=== PATIENT | female | born 1975 ===

== ENCOUNTER 2021-02-19 15:14 | Outpatient (REF) | payer MEDICAID, SELFPAY ==
[2021-02-19 16:48] LABS: Estimated Average Glucose 97 mg/dL; INTERNATIONAL NORM RATIO 1.1 (0.9-1.1); Prothrombin Time 12.5 SEC (10.8-13.0)
[2021-02-19 16:50] LABS: Partial Thromboplastin Time 40.6 SEC (24.1-38.0)
[2021-02-19 16:56] LABS: Basophils Percent Auto 0.4 % (0-2); Eosinophils Percent Auto 0.8 % (0-4); Hematocrit 45.2 % (37-47); Hemoglobin 14.8 g/dl (12.0-16.0); Imm Gran Abs Auto 0.02 X10*3/uL (0.00-0.03); Imm Gran Pct Auto 0.4 % (0.0-0.4); Lymphocytes Absolute Auto 1.8 X10*3/uL (1.2-4.9); Lymphocytes Percent Auto 36.7 % (20-40); MANUAL DIFF FLAG SCAN; Mean Corpuscular HGB Conc 32.7 g/dl (31.0-35.0); Mean Corpuscular Hemoglobin 26.9 pg (27.0-33.0); Mean Corpuscular Volume 82.2 fL (80-98); Mean Platelet Volume 12.1 fL (9.4-12.3); Monocytes Absolute Auto 0.3 X10*3/uL (0.1-1.2); Monocytes Percent Auto 5.7 % (2-11); Neutrophils Absolute Auto 2.7 X10*3/uL (2.0-8.3); PLT CLUMP 1; Red Cell Distribution Width 15.3 % (11.0-16.0); SCAN SMEAR FLAG 1
[2021-02-19 17:14] LABS: Alanine Aminotransferase 17 U/L (0-31); Albumin Level 4.3 g/dL (3.5-5.0); Alkaline Phosphatase 80 U/L (39-117); Anion Gap 12 (12-20); Aspartate Amino Transferase 17 U/L (5-31); Bilirubin Direct < 0.2 mg/dL (0.0-0.5); Bilirubin Total 0.3 mg/dL (0.0-1.0); Blood Urea Nitrogen 9 mg/dL (9-16); Calcium 9.5 mg/dL (8.4-10.2); Carbon Dioxide 29 mmol/L (22-29); Chloride 103 mmol/L (96-108); Cholesterol 223 mg/dL; Estimated Glomerular Filt Rate > 60; Glucose Random 69 mg/dL (60-115); HDL Cholesterol 65 mg/dL; LDL Cholesterol Calculated 144 mg/dl; Potassium 4.3 mmol/L (3.3-5.1); Sodium 140 mmol/L (135-145); Total Protein 7.2 g/dL (6.5-8.0); Triglycerides 72 mg/dL
[2021-02-19 17:34] LABS: TSH reflex Free T4 0.73 uIU/mL (0.32-4.0)
[2021-02-19 18:06] LABS: Platelet Count 168 X10*3/uL (160-400); White Blood Count 4.9 X10*3/uL (4.8-10.8)
[2021-02-19 18:15] LABS: SLIDE REVIEW VERIFIED
== END 2021-02-19 15:15 | disposition home or self-care (01) ==
LOC: HO.LAB 15:14
PROVIDERS: PCP Internal Medicine; Visit Provider Internal Medicine
DX: Z00.00 Encounter for general adult medical examination without abnormal findings (principal); D68.2 Hereditary deficiency of other clotting factors
CPT/HCPCS: 36415; 80048; 80061; 80076; 82306; 83036; 84443; 85025; 85610; 85730

== ENCOUNTER 2021-04-23 14:08 | Outpatient (REF) | payer MEDICAID, SELFPAY ==
--- NOTE | ~2021-04-23 | US_ITS ---
EXAMINATION: US PELVIS, COMPLETE CLINICAL INFORMATION: Irregular menses; the last menstrual period was 2 months prior. COMPARISON: None TECHNIQUE: Transabdominal and transvaginal imaging was performed. FINDINGS: The uterus is of normal size and echogenicity measuring 8.7 x 4.0 x 4.7 cm. The uterus is anteverted and retroflexed. A regular homogeneous endometrium is identified measuring 0.5 cm. Both ovaries are of normal size and echogenicity. The right ovary measures 2.3 x 2.5 x 2.1 cm for a volume of 6.6 mL. The left ovary measures 3.8 x 3.1 x 3.1 cm for a volume of 19.1 mL. The left ovary contains 2.9 x 2.2 x 2.4 cm, 2.3 x 1.9 x 2.5 cm and 2.4 x 1.5 x 1.7 cm anechoic cysts. The first and last of these appear simple, and the 2.5 cm maximal diameter cyst shows a possible 6 mm intramural nodule. There is no pelvic free fluid. No adnexal mass is seen. US/US transvaginal IMPRESSION: Multiple left ovarian cysts are seen, 2 simple and 1 showing a possible intramural nodule. This could be more fully evaluated with dedicated pelvic MRI, if clinically indicated. Recommend Gynecology evaluation and management. At a minimum, ultrasound follow-up is recommended at a 6 week interval to ensure stability/regression.
--- NOTE | ~2021-04-23 | US_ITS ---
EXAMINATION: US PELVIS, COMPLETE CLINICAL INFORMATION: Irregular menses; the last menstrual period was 2 months prior. COMPARISON: None TECHNIQUE: Transabdominal and transvaginal imaging was performed. FINDINGS: The uterus is of normal size and echogenicity measuring 8.7 x 4.0 x 4.7 cm. The uterus is anteverted and retroflexed. A regular homogeneous endometrium is identified measuring 0.5 cm. Both ovaries are of normal size and echogenicity. The right ovary measures 2.3 x 2.5 x 2.1 cm for a volume of 6.6 mL. The left ovary measures 3.8 x 3.1 x 3.1 cm for a volume of 19.1 mL. The left ovary contains 2.9 x 2.2 x 2.4 cm, 2.3 x 1.9 x 2.5 cm and 2.4 x 1.5 x 1.7 cm anechoic cysts. The first and last of these appear simple, and the 2.5 cm maximal diameter cyst shows a possible 6 mm intramural nodule. There is no pelvic free fluid. No adnexal mass is seen. US/US pelvic complete IMPRESSION: Multiple left ovarian cysts are seen, 2 simple and 1 showing a possible intramural nodule. This could be more fully evaluated with dedicated pelvic MRI, if clinically indicated. Recommend Gynecology evaluation and management. At a minimum, ultrasound follow-up is recommended at a 6 week interval to ensure stability/regression.
== END 2021-04-23 14:09 | disposition home or self-care (01) ==
LOC: HO.US 14:08
PROVIDERS: PCP Internal Medicine; Visit Provider Internal Medicine
DX: N92.6 Irregular menstruation, unspecified (principal)
CPT/HCPCS: 76830; 76856

== ENCOUNTER 2021-05-06 08:31 | Outpatient (REF) | payer MEDICAID, SELFPAY ==
[2021-05-07 01:02] LABS: CT PCR NOT DETECTED (Not Detect.); NG PCR NOT DETECTED (Not Detect.)
[2021-05-08 06:26] LABS: CA-125 17 U/mL (<35)
[2021-05-08 13:30] LABS: HPV mRNA E6/E7 rflx Not Detected (Not Detected)
[2021-05-09 08:51] LABS: Follicle Stimulating Hormone 13.5 mIU/mL
== END 2021-05-06 08:32 | disposition home or self-care (01) ==
LOC: HO.LAB 08:31
PROVIDERS: PCP Internal Medicine; Visit Provider Advanced Practice Midwife
DX: Z12.4 Encounter for screening for malignant neoplasm of cervix (principal); Z11.51 Encounter for screening for human papillomavirus (HPV); Z11.3 Encounter for screening for infections with a predominantly sexual mode of transmission; R10.9 Unspecified abdominal pain; N92.6 Irregular menstruation, unspecified; N83.299 Other ovarian cyst, unspecified side; R23.2 Flushing; Z20.2 Contact with and (suspected) exposure to infections with a predominantly sexual mode of transmission
CPT/HCPCS: 36415; 81003; 83001; 84443; 86304; 87491; 87591; 87624; 88142

== ENCOUNTER 2021-06-04 13:35 | Outpatient (REF) | payer MEDICAID, SELFPAY ==
--- NOTE | ~2021-06-04 | US_ITS ---
EXAMINATION: US PELVIS CLINICAL INFORMATION: Ovarian cysts COMPARISON: 04/23/2021 TECHNIQUE: Ultrasound of the pelvis is performed using both transabdominal and transvaginal transducers along with Doppler. Transvaginal imaging is performed due to inadequate visualization transabdominally. FINDINGS: Uterus: The uterus is anteverted and measures 10.3 x 6.4 x 7.1 cm. The double wall endometrial thickness is 1.0 mm. The uterus is smooth in contour and has normal myometrial echogenicity. No visible fibroid. Adnexa: Both ovaries are visualized. There is normal color flow to the adnexa. There is no ovarian torsion. There is no pelvic ascites or fluid collection. Right ovary measures 2.5 x 1.9 x 1.7 cm for a volume of 4.2 mL. Left ovary measures 4.1 x 3.1 x 3.4 cm for a volume of 22.6 mL which includes a 3.4 x 2.9 x 3.3 cm cyst. A cyst with a complex hyperechoic area seen on the previous study is not seen on today's exam. US/US pelvic and transvaginal IMPRESSION: Previously seen concerning left ovarian cyst that showed a 6 mm intramural nodule has resolved.
== END 2021-06-04 13:36 | disposition home or self-care (01) ==
LOC: HO.US 13:35
PROVIDERS: Visit Provider Advanced Practice Midwife
DX: N83.299 Other ovarian cyst, unspecified side (principal)
CPT/HCPCS: 76830; 76856

== ENCOUNTER → 2021-06-11 11:20 | Outpatient (BNVA) | payer MEDICAID, SELFPAY | PROVIDERS: PCP Internal Medicine; Visit Provider Advanced Practice Midwife ==

== ENCOUNTER 2022-02-05 15:01 | Emergency (ER) | payer MEDICAID, SELFPAY ==
[2022-02-05 15:09] VITALS: BP 110/52; PULSE 68; RESP 18; TEMP 36.7; O2SAT 97; BMI 28.5
== END 2022-02-05 16:57 | disposition left against medical advice (07) ==
PROVIDERS: Emergency Provider Emergency Medicine; PCP Internal Medicine
DX: R10.9 Unspecified abdominal pain (principal); R19.7 Diarrhea, unspecified; R11.10 Vomiting, unspecified
CPT/HCPCS: 99281

== ENCOUNTER 2022-03-19 10:17 | Outpatient (REF) | payer MEDICAID, SELFPAY ==
[2022-03-21 14:06] LABS: H Pylori Breath Test Negative (Negative)
== END 2022-03-19 10:18 | disposition home or self-care (01) ==
LOC: CF 10:17
PROVIDERS: PCP Internal Medicine; Visit Provider Physician Assistant
DX: A04.8 Other specified bacterial intestinal infections (principal); R10.9 Unspecified abdominal pain; R14.0 Abdominal distension (gaseous)
CPT/HCPCS: 36415; 83013; 99202

== ENCOUNTER 2022-04-08 08:22 | Outpatient (REF) | payer MEDICAID, SELFPAY ==
--- NOTE | ~2022-04-08 | MM_ITS ---
EXAMINATION: MM SCREENING DIGITAL BREAST TOMOSYNTHESIS, BILATERAL CLINICAL INFORMATION: Screening. Asymptomatic. Age 46. No prior breast imaging. No known family history breast cancer. The lifetime risk of breast cancer based on the Tyrer-Cuzick Model is 9%. COMPARISON: None (current study represents initial baseline exam). TECHNIQUE: Digital breast tomosynthesis is performed in both the craniocaudal and mediolateral oblique views along with computer-aided detection (CAD). Synthesized 2D images are generated from the tomosynthesis. FINDINGS: There are scattered areas of fibroglandular density (ACR BI-RADS breast composition Category b). There is no significant mass or architectural abnormality. Minor parenchymal asymmetry present posterior upper outer left breast. The axilla and skin contours are unremarkable. Left breast has tightly grouped fine calcifications periareolar upper outer breast, possibly vascular. Right breast has fine punctate density lateral periareolar breast not as well visualized on MLO view, possibly digital processing digital processing pseudo calcification artifact. As this exam represents initial baseline study, patient will be recalled for additional magnification views to fully characterize the calcifications. MM/MM tomosynthesis screening BI IMPRESSION: Left: -Grouped upper outer periareolar calcifications, possibly vascular. Right: -Punctate lateral periareolar calcifications digital processing pseudocalcification artifact. ASSESSMENT: BI-RADS 0: Incomplete - Need Additional Imaging Evaluation RECOMMENDATION: 1. Additional bilateral magnification CC and bilateral magnification ML views. 2. Radiology department staff will contact the patient for additional imaging. This patient's information was entered into a reminder system with a target due date for their next mammogram.
== END 2022-04-08 08:23 | disposition home or self-care (01) ==
LOC: HO.MAMMO 08:22
PROVIDERS: PCP Internal Medicine; Visit Provider Internal Medicine
DX: Z12.31 Encounter for screening mammogram for malignant neoplasm of breast (principal)
CPT/HCPCS: 77063; 77067

== ENCOUNTER 2022-04-22 13:47 | Outpatient (REF) | payer MEDICAID, SELFPAY ==
--- NOTE | ~2022-04-22 | MM_ITS ---
EXAMINATION: MM DIAGNOSTIC DIGITAL MAMMOGRAPHY, BILATERAL CLINICAL INFORMATION: Recall from baseline for bilateral calcifications. Age 46. TC score 9%. COMPARISON: Mammography: 04/08/2022 (baseline). TECHNIQUE: Digital mammography left breast is performed in the following views: Magnification CC, magnification rolled medial CC, magnification ML. Digital mammography right breast is performed in the following views: Magnification CC, magnification ML x2. FINDINGS: There are scattered areas of fibroglandular density (ACR BI-RADS breast composition Category b). Magnification views left breast demonstrate a group of over 10 calcifications anterior upper outer quadrant which appear heterogeneous, varying in shape, most notable on the rolled CC view. There are grouped benign area of approximately 1 cm across. Stereotactic sampling is recommended. There are other fine uniform appearing punctate round isolated and some small grouped calcifications retroareolar and left upper outer quadrant. These are similar to calcifications found on the right and are probably benign. Magnification views right breast demonstrate scattered isolated and small groups of round calcifications central and lower breast, probably benign. There is no focal pleomorphic grouped or ductal distribution. Results are discussed with the patient and family at time of visit, hospital provided park interpreter for portion of discussion. Patient is in agreement with stereotactic sampling. Results and recommendation called to medical certification specialist (Melissa) for Dr. Mike Barroso on 04/22/2022. MM/MM added views BI IMPRESSION: Left: -Grouped heterogeneous calcifications anterior upper outer breast, recommend tissue sampling. -Other calcifications left breast are similar to contralateral right breast, probably benign. Right: -Calcifications central and lower breast, probably benign. ASSESSMENT: BI-RADS 4: Suspicious RECOMMENDATION: -Stereotactic sampling grouped heterogeneous calcifications anterior upper outer left breast. -Other bilateral breast calcifications may be reassessed again in 6 months. This patient's information was entered into a reminder system with a target due date for their next mammogram.
== END 2022-04-22 13:48 | disposition home or self-care (01) ==
LOC: HO.MAMMO 13:47
PROVIDERS: PCP Internal Medicine; Visit Provider Internal Medicine
DX: R92.1 Mammographic calcification found on diagnostic imaging of breast (principal)
CPT/HCPCS: 77066

== ENCOUNTER 2022-04-29 08:19 | Outpatient (REF) | payer MEDICAID, SELFPAY ==
--- NOTE | ~2022-04-29 | MM_ITS ---
EXAMINATION: STEREOTACTIC TOMOSYNTHESIS-GUIDED VACUUM-ASSISTED BREAST BIOPSY, LEFT SPECIMEN RADIOGRAPH, LEFT POST PROCEDURE DIGITAL MAMMOGRAM, LEFT CLINICAL INFORMATION: Indeterminate calcifications upper outer aspect of the left breast. COMPARISON: April 22, 2022 and April 08, 2022. TECHNIQUE/PROCEDURE: Informed consent was obtained from the patient after discussion of the benefits, risks, and alternatives to biopsy today. Patient appeared to understand. Gave opportunity for questions. Patient signed consent form. BIOPSY TABLE: [employer]one Biopsy System. LESION: Calcifications. LOCAL ANESTHESIA: 10 mL 1% lidocaine; 18 mL 1% lidocaine with epinephrine. DERMATOTOMY: Single skin shobha dermatotomy performed. NEEDLE: Trigence Eviva 9-gauge vacuum assisted core biopsy device. APPROACH: Lateral. TARGETING: Digital breast tomosynthesis used for targeting. CORES: 20. CLIP: Top hat. SPECIMEN RADIOGRAPH: Specimen radiograph is taken in separate room using digital mammography. The index calcifications are in the excised cores. POST PROCEDURE UNILATERAL DIGITAL MAMMOGRAM: The post biopsy mammogram is performed in separate room using separate digital mammography equipment from the biopsy procedure. 2 views are obtained. There are scattered areas of fibroglandular density (breast composition category: b). The clip marker is in position. The calcifications are markedly decreased at the biopsy site. No gross hematoma. The patient tolerated the procedure well. No immediate complications. Home instructions reviewed with the patient. Final pathology results are pending. MM/MM stereotactic biopsy LT IMPRESSION: 1. Digital tomosynthesis-guided core biopsy left breast with clip placement. 2. Specimen radiograph taken and post procedure mammogram. There is satisfactory positioning of the biopsy clip. 3. Final pathology results pending. An addendum report will be issued.
[2022-04-29] MEDS: Sodium Bicarbonate 8.4% 50 MEQ/50 ML VIAL SUBCUT (11:14)
[2022-04-29] MEDS: Lidocaine HCl 1 % 20 ML VIAL 9 ML SUBCUT (11:15)
== END 2022-04-29 08:20 | disposition home or self-care (01) ==
LOC: HO.MAMMO 08:19
PROVIDERS: Visit Provider Surgery
DX: R92.8 Other abnormal and inconclusive findings on diagnostic imaging of breast (principal); Z79.899 Other long term (current) drug therapy
CPT/HCPCS: 19081; 88305; 99202; A4648

== ENCOUNTER → 2022-05-02 08:26 | Outpatient (BNVA) | payer MEDICAID, SELFPAY | PROVIDERS: PCP Internal Medicine; Visit Provider Surgery | DX: R92.8 Other abnormal and inconclusive findings on diagnostic imaging of breast (principal); Z98.890 Other specified postprocedural states | CPT/HCPCS: 99211 ==

== ENCOUNTER 2022-08-12 10:13 | Outpatient (REF) | payer MEDICAID, SELFPAY ==
[2022-08-12 14:03] LABS: MANUAL DIFF FLAG NO
[2022-08-12 14:20] LABS: Basophils Percent Auto 0.6 % (0-2); Eosinophils Absolute Auto 0.1 X10*3/uL (0.0-0.4); Eosinophils Percent Auto 1.2 % (0-4); Hematocrit 42.5 % (37.0-47.0); Hemoglobin 13.4 g/dl (12.0-16.0); Imm Gran Abs Auto 0.02 X10*3/uL (0.00-0.03); Imm Gran Pct Auto 0.4 % (0.0-0.4); Mean Corpuscular HGB Conc 31.5 g/dl (31.0-35.0); Mean Corpuscular Volume 79.3 fL (80.0-98.0); Mean Platelet Volume 10.9 fL (9.4-12.3); Monocytes Absolute Auto 0.4 X10*3/uL (0.1-1.2); Monocytes Percent Auto 8.2 % (2-11); Neutrophils Absolute Auto 2.5 x10*3/uL (2.0-8.3); Neutrophils Percent Auto 49.6 % (45-73); Platelet Count 323 X10*3/uL (160-400); Red Blood Count 5.36 X10*6/uL (4.20-5.50); Red Cell Distribution Width 15.4 % (11.0-16.0)
== END 2022-08-12 10:14 | disposition home or self-care (01) ==
LOC: HO.WFDLDS 10:13
PROVIDERS: Visit Provider Physician Assistant
DX: K52.9 Noninfective gastroenteritis and colitis, unspecified (principal); R14.0 Abdominal distension (gaseous); D68.2 Hereditary deficiency of other clotting factors; R10.9 Unspecified abdominal pain; Z79.01 Long term (current) use of anticoagulants; Z79.899 Other long term (current) drug therapy
CPT/HCPCS: 36415; 85025; 99212

== ENCOUNTER 2022-09-17 10:17 | Outpatient (REF) | payer MEDICAID, SELFPAY ==
--- NOTE | ~2022-09-17 | XR_ITS ---
EXAMINATION: XR CHEST CLINICAL INFORMATION: Influenza like symptoms, recurrent cough COMPARISON: None TECHNIQUE: 2 views of the chest were obtained. FINDINGS: The lungs are clear and there is no airspace consolidation or groundglass opacity. No coarsening bronchiolar markings. No hyperinflation or effusion. Heart size normal. Vascularity normal. Hilar and mediastinal contours and bony structures are unremarkable. XR/XR chest 2V IMPRESSION: Unremarkable examination.
== END 2022-09-17 10:18 | disposition home or self-care (01) ==
LOC: HO.XRAY 10:17
PROVIDERS: Visit Provider Emergency Medicine
DX: Z13.89 Encounter for screening for other disorder (principal)
CPT/HCPCS: 71046

== ENCOUNTER 2022-09-25 16:50 | Outpatient (REF) | payer MEDICAID, SELFPAY ==
[2022-09-25 17:17] LABS: D Dimer High Sensitivity 158 NG/ML
== END 2022-09-25 16:51 | disposition home or self-care (01) ==
LOC: HO.LAB 16:50
PROVIDERS: Absent Provider Internal Medicine; PCP Internal Medicine; Visit Provider Emergency Medicine
DX: R07.9 Chest pain, unspecified (principal)
CPT/HCPCS: 36415; 85379

== ENCOUNTER 2022-10-23 10:03 | Outpatient (REF) | payer MEDICAID, SELFPAY ==
--- NOTE | ~2022-10-23 | MM_ITS ---
EXAMINATION: MM DIAGNOSTIC DIGITAL BREAST TOMOSYNTHESIS, BILATERAL CLINICAL INFORMATION: Probable benign bilateral calcifications noted on initial baseline mammography for short interval six-month follow-up. Benign left stereotactic biopsy for grouped anterior upper outer breast 04/29/2022 (benign breast tissue with fibrocystic changes). The lifetime risk of breast cancer based on the Tyrer-Cuzick Model is 9%. COMPARISON: Mammography: 04/29/2022, 04/22/2022, 04/08/2022 (baseline, BI-RADS 0). TECHNIQUE: Digital breast tomosynthesis is performed in both the craniocaudal and mediolateral oblique views along with computer-aided detection (CAD). Synthesized 2D images are generated from the tomosynthesis. Additional bilateral magnification views are obtained: Left CC, left ML x2, right CC, right ML x2. FINDINGS: There are scattered areas of fibroglandular density (ACR BI-RADS breast composition Category b). Parenchymal pattern is similar to prior exam. No significant mass or architectural abnormality. The axilla and skin contours are unremarkable. There is biopsy clip marker anterior upper outer left breast. Calcifications targeted on left are no longer clearly visualized consistent with the tissue sampling. The remaining bilateral breast calcifications for follow-up are stable from prior diagnostic exam and will be reassessed again at time of annual bilateral mammography, due in 6 months. Results are provided to the patient at time of visit by the technologist. MM/MM tomosynthesis diagnostic BI IMPRESSION: -No mammographic evidence of malignancy. -Probable benign bilateral calcifications similar to prior diagnostic exam. ASSESSMENT: BI-RADS 3: Probably Benign RECOMMENDATION: Bilateral diagnostic mammography at time of annual exam, due in 6 months. This patient's information was entered into a reminder system with a target due date for their next mammogram.
== END 2022-10-23 10:04 | disposition home or self-care (01) ==
LOC: HO.MAMMO 10:03
PROVIDERS: PCP Internal Medicine; Visit Provider Internal Medicine
DX: R92.1 Mammographic calcification found on diagnostic imaging of breast (principal)
CPT/HCPCS: 77062; 77066

== ENCOUNTER → 2022-12-15 12:52 | Outpatient (BNVA) | payer MEDICAID, SELFPAY | PROVIDERS: PCP Internal Medicine; Visit Provider Internal Medicine Rheumatology | DX: M79.641 Pain in right hand (principal); G90.511 Complex regional pain syndrome I of right upper limb; D68.52 Prothrombin gene mutation; I87.2 Venous insufficiency (chronic) (peripheral) | CPT/HCPCS: 99202 ==

== ENCOUNTER 2022-12-16 11:50 | Outpatient (REF) | payer MEDICAID, SELFPAY ==
--- NOTE | ~2022-12-16 | XR_ITS ---
EXAMINATION: XR HAND, RIGHT CLINICAL INFORMATION: Pain. COMPARISON: None available. TECHNIQUE: PA, lateral, and oblique views of the right hand. FINDINGS: The bones and soft tissues are normal. No fracture. Alignment is anatomic. Joint spaces are maintained. No erosions or soft tissue calcifications. XR/XR hand LT min 3V IMPRESSION: Normal right hand. EXAMINATION: XR HAND, LEFT CLINICAL INFORMATION: Pain. COMPARISON: None available. TECHNIQUE: PA, lateral, and oblique views of the left hand. FINDINGS: The bones and soft tissues are normal. No acute fracture. A tiny accessory ossification centers or chronic avulsion fragment is incidentally noted adjacent to the ulnar styloid. Alignment is anatomic. Joint spaces are maintained. No erosions or periarticular soft tissue calcifications. A minimal calcifications is noted in the posterior wrist soft tissues. IMPRESSION: Unremarkable left hand.
--- NOTE | ~2022-12-16 | XR_ITS ---
EXAMINATION: XR HAND, RIGHT CLINICAL INFORMATION: Pain. COMPARISON: None available. TECHNIQUE: PA, lateral, and oblique views of the right hand. FINDINGS: The bones and soft tissues are normal. No fracture. Alignment is anatomic. Joint spaces are maintained. No erosions or soft tissue calcifications. XR/XR hand RT 2V IMPRESSION: Normal right hand. EXAMINATION: XR HAND, LEFT CLINICAL INFORMATION: Pain. COMPARISON: None available. TECHNIQUE: PA, lateral, and oblique views of the left hand. FINDINGS: The bones and soft tissues are normal. No acute fracture. A tiny accessory ossification centers or chronic avulsion fragment is incidentally noted adjacent to the ulnar styloid. Alignment is anatomic. Joint spaces are maintained. No erosions or periarticular soft tissue calcifications. A minimal calcifications is noted in the posterior wrist soft tissues. IMPRESSION: Unremarkable left hand.
--- NOTE | ~2022-12-16 | XR_ITS ---
EXAMINATION: XR KNEE, RIGHT CLINICAL INFORMATION: Pain. COMPARISON: None available. TECHNIQUE: AP and lateral views of the right knee. FINDINGS: Bones and soft tissues are normal. No fracture or joint effusion. Alignment is anatomic. Joint spaces are well maintained. No abnormal soft tissue calcification. XR/XR knee RT 2V IMPRESSION: Normal right knee.
== END 2022-12-16 11:51 | disposition home or self-care (01) ==
LOC: HO.XRAY 11:50
PROVIDERS: PCP Internal Medicine; Visit Provider Internal Medicine Rheumatology
DX: M79.641 Pain in right hand (principal); M25.561 Pain in right knee; M79.642 Pain in left hand
CPT/HCPCS: 73120; 73130; 73560

== ENCOUNTER 2023-02-24 13:25 | Outpatient (REF) | payer MEDICAID, SELFPAY ==
--- NOTE | ~2023-02-24 | US_ITS ---
EXAMINATION: US PELVIS CLINICAL INFORMATION: Irregular menses. Pelvic pain. LMP 15 days ago. COMPARISON: 06/04/2021 TECHNIQUE: Ultrasound of the pelvis is performed using both transabdominal and transvaginal transducers along with Doppler. Transvaginal imaging is performed due to inadequate visualization transabdominally. FINDINGS: Uterus: The uterus is retroverted and measures 9.1 x 5.5 x 7.4 cm. Uterine echotexture is heterogeneous. Uterine fibroids at the fundus measure 1.5 x 1.4 x 1.7 cm and 1.3 x 1.3 x 1.5 cm. The double wall endometrial thickness is 7 mm. Adnexa: Right ovary measures 2.0 x 1.2 x 1.5 cm. Left ovary measures 2.7 x 2.0 x 1.9 cm. Complex cyst measures 1.5 x 1.6 x 1.5 cm. No internal color Doppler flow. Small free fluid in the pelvis. US/US pelvic and transvaginal IMPRESSION: Complex left ovarian cyst measuring 1.5 x 1.6 x 1.5 cm. Findings are overwhelmingly likely to represent a normal ovarian follicle. No follow-up imaging recommended.
== END 2023-02-24 13:26 | disposition home or self-care (01) ==
LOC: HO.US 13:25
PROVIDERS: PCP Internal Medicine; Visit Provider Internal Medicine
DX: N92.1 Excessive and frequent menstruation with irregular cycle (principal)
CPT/HCPCS: 76830; 76856

== ENCOUNTER 2023-03-17 13:37 | Outpatient (AMB) | payer MEDICAID, SELFPAY ==
--- NOTE | 2023-03-17 13:38 | MHC.OFFVIS ---
Intake Vital Signs 03/17/23 13:44 Height 5 ft 4 in Weight 176 lb 3 oz BMI 30.2 BP 108/73 Blood Pressure Location Rt brachial Position Sitting Pulse 71 Pulse Source Pulse Oximeter Pulse Oximetry (%) 99 Oxygen Delivery Method Room Air Intake Visit Reasons: Chronic pain in knees & left hand Allergies aspirin Allergy (Unknown, Verified 12/15/22 13:08) bleeding HPI Chronic pain in knees & left hand HPI Details Patient is a pleasant 47 years old female with complex medical history presents today with bilateral knee pain and left hand pain. Patient reports she she prays with kneeling 5 times per day and has been having progressively increased bilateral knee pain since 2011. Pain is also easily aggravated with walking, climbing, and worsens with any contact on the floor. She presents with localized global anterior knee pain, mostly in patella areas. Denies any recent injury, falls, or trauma. Uses cushioning pads with prayers. Denies previous physical therapy, injections or knee surgery. She has chronic swelling of left lower extremity status post a fairly extensive problem with DVT in 2008 following while in [place] she apparently had a pulmonary embolus. Reports chronic LLE pain with intermittent swelling, calf tenderness and pain in the left foot and calf region. Reports increased left leg pain after recurrence of a DVT in 2014. At that point, she was found to have a prothrombin gene mutation. She reports her father from similar problems and many of her relatives have significant similar medical illnesses. Patient is presently on Plavix and has had no further DVT or other clots since 2014. She has upcoming follow up with [facility] Vascular provider in 2 weeks for left leg chronic pain and swelling. 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 Patient reports she is seeing rheumatology for her hand and multiple joint pain. Her most concerning and troublesome pain is bilateral knee pain for which she is interested to undergo therapeutic injections. Reports she receives right foot/heel cortisone injections every 6 months by her operations support manager in [place] with good pain relief. Location Bilateral knees, left hand Duration Chronic pain for 5+ years Characteristics of symptom or complaint Swelling, tingling, sharp, shooting pain, aching, shock-like Aggravating or associated factors Bending, lifting, climbing, walking, kneeling Relieving factors Gabapentin, lidocaine patches, Tylenol Treatment No PT, uses walker with ambulation PFSH Medical History Chronic ulcer of leg Depression with anxiety Factor V deficiency Hx of migraine headaches Hypothyroid Orthostatic hypotension Ulcer of lower extremity Venous insufficiency Surgical History H/O skin graft History of left breast biopsy Family History Maternal Aunt Stomach cancer Social History Household Members Other:: lives with 2 daughters Alcohol intake: never Patient Tobacco Use Status: Never used Tobacco Female Reproductive History Menstrual Age of Menarche: 12 Review of Systems Const All systems reviewed & are unremarkable except as noted in HPI and below Reports as per HPI, Denies body aches, Denies chills, Reports fatigue, Denies fever(s), Denies frequent falls, Reports weakness (reports gait problems, chronic LLE pain and swelling) and Denies weight loss Card Denies chest pain, Denies chest pain with activity, Denies syncope, Reports pedal edema, Reports leg edema, Denies dyspnea and Denies dyspnea on exertion Resp Denies pain on inspiration, Denies dyspnea and Denies dyspnea on exertion Musc Reports as per HPI, Denies myalgias, Reports arthralgias, Denies joint swelling, Reports numbness, Denies radiating pain into limb, Reports stiffness and Reports tingling Neuro Denies syncope, Denies frequent falls, Reports numbness, Reports tingling and Reports weakness (reports gait problems, chronic LLE pain and swelling) Endo Reports fatigue Physical Exam Vital Signs: Last Vital Signs Pulse 71 03/17/23 13:44 BP 108/73 03/17/23 13:44 Pulse Ox 99 03/17/23 13:44 Oxygen Delivery Method Room Air 03/17/23 13:44 BMI result Body Mass Index 30.2 General: Appears afebrile. Alert and oriented. Mood and affect appropriate. Follows and participates in conversation appropriately. Respiratory effort is unlabored. No cough. Able to transition from sit to stand unassisted. Uses walker with ambulation. Ambulates with bilaterally normal heel strike and toe off. Extrem Left upper extremity: hand (as per HPI) Right lower extremity: knee Details: tenderness Location: of the patella and of the medial joint line, normal ROM and crepitus; no swelling, no ecchymosis, no deformity and no unusual warmth Left lower extremity: knee (Increased pain with ROM. ) Details: tenderness Location: of the patella and of the medial joint line and crepitus; no swelling, no ecchymosis and no unusual warmth Results Reviewed Results Reviewed: XR KNEE, RIGHT 12/16/22 FINDINGS: Bones and soft tissues are normal. No fracture or joint effusion. Alignment is anatomic. Joint spaces are well maintained. No abnormal soft tissue calcification. IMPRESSION: Normal right knee. Assessment & Plan Assessment & Plan (1) Venous insufficiency: Code(s): I87.2 - Venous insufficiency (chronic) (peripheral) (2) Bilateral knee pain: Code(s): M25.561 - Pain in right knee; M25.562 - Pain in left knee (3) Polyarthralgia: Code(s): M25.50 - Pain in unspecified joint Plan Patient with chronic bilateral knee pain which she attributes to [employer] practices of frequent praying with kneeling and has no pain relief with conservative measures. Patient has significant history of DVT in her LLE in 2008 and 2014 which left her with chronic pain, swelling and was found to be in hypercoagulable state. She is currently on Plavix and denies any DVTs since 2014. She is followed by [facility] Rheumatology, Podiatry in [place], and [facility] Vascular services. Left hand pain is consistent with CRPS following injury with IV infiltration in 2008 during her hospital stay for in [place]. She is not interested to address this pain today. Patient requests bilateral knee therapeutic cortisone injections for her chronic knee pain. Will schedule her in office with Dr. Ferraro on 03/30/23. Patient is on Plavix, will obtain prescribing physician permission to pause it for knee injections. All questions and concerns have been answered and patient agreed with the plan. Follow up as needed. Coding Level of Care Code New Pt Level 4 (36936) Diagnoses Venous insufficiency I87.2 Bilateral knee pain M25.561; M25.562 Polyarthralgia M25.50
[2023-03-17 13:44] VITALS: BP 108/73; PULSE 71; O2SAT 99; BMI 30.2
== END 2023-03-17 14:16 | disposition home or self-care (01) ==
PROVIDERS: PCP Internal Medicine; Visit Provider Nurse Practitioner Family
DX: I87.2 Venous insufficiency (chronic) (peripheral) (principal); M25.561 Pain in right knee; M25.562 Pain in left knee; M25.50 Pain in unspecified joint
CPT/HCPCS: 99204

== ENCOUNTER → 2023-03-17 13:37 | Outpatient (BNVA) | payer MEDICAID, SELFPAY | PROVIDERS: PCP Internal Medicine; Visit Provider Nurse Practitioner Family | DX: M25.561 Pain in right knee (principal); M25.562 Pain in left knee; M79.642 Pain in left hand; I87.2 Venous insufficiency (chronic) (peripheral); Z86.718 Personal history of other venous thrombosis and embolism | CPT/HCPCS: 99204 ==

== ENCOUNTER 2023-04-03 08:06 | Outpatient (AMB) | payer MEDICAID, SELFPAY ==
--- NOTE | 2023-04-03 08:15 | A.OFFVIS_ITS ---
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 Scribed for DOM Pereira by Cayla Christopher rn medical surgical, on 04/03/2023 at 8:30 am EST Director Executive Communications Required: Yes Director Executive Communications Language: Yakut Director Executive Communications Name: Estephania [id number] Information Interpreted: non-clinical & clinical [employer]: [employer] Present (Rosa Mcdaniel GABY) Accompanied by: Self / Same As Patient Allergies aspirin Allergy (Unknown, Verified 04/03/23 08:22) bleeding Is last menstrual period known: Yes Last menstrual period: 03/24/23 HPI HPI Comments History of Present Illness Details She is a premenopausal woman presenting for annual exam. She attempts to eat healthy, uses a walker to ambulate. Not currently sexually active. Reports heavy/prolonged bleeding for months, will stop for 1-2 days and start again. Had recent bloodwork with PCP, abnormal TSH per patient. Records not avai lable. Has tried IUD in 2018, reports not liking it due to side effects, bloating/weight gain, not interested in trying again. Hx of Factor V deficiency. Denies vaginal itching and irritation. Family hx of colon cancer in mother. She is awaiting colonoscopy. Last pap smear 2020. Last mammogram 11/02/22. 02/24/23 US FINDINGS: Uterus: The uterus is retroverted and measures 9.1 x 5.5 x 7.4 cm.? Uterine echotexture is heterogeneous. Uterine fibroids at the fundus measure 1.5 x 1.4 x 1.7 cm and 1.3 x 1.3 x 1.5 cm. The double wall endometrial thickness is 7 mm.? Adnexa: Right ovary measures 2.0 x 1.2 x 1.5 cm. Left ovary measures 2.7 x 2.0 x 1.9 cm. Complex cyst measures 1.5 x 1.6 x 1.5 cm. No internal color Doppler flow. Small free fluid in the pelvis. IMPRESSION: Complex left ovarian cyst measuring 1.5 x 1.6 x 1.5 cm. ? Findings are overwhelmingly likely to represent a normal ovarian follicle. No follow-up imaging recommended. [facility] Medical History Chronic ulcer of leg Complex ovarian cyst Depression with anxiety Factor V deficiency Hx of migraine headaches Hypothyroid Orthostatic hypotension Ulcer of lower extremity Venous insufficiency Surgical History H/O skin graft History of left breast biopsy Family History Maternal Aunt Stomach cancer Mother Colon cancer Father Factor V deficiency Social History Household Members Other:: lives with 2 daughters Alcohol intake: never Patient Tobacco Use Status: Never used Tobacco Female Reproductive History Menstrual Age of Menarche: 12 Duration of menses: other (AUB) Date of last menstrual period: 03/24/23 control method: abstinence Total pregnancies: 3 Full term: 3 Number of Living Children: 3 Multiple births: 1 Date of last pap smear: 05/07/21 Date of Mammogram: 10/23/22 Review of Systems Const All systems reviewed & are unremarkable except as noted in HPI and below Reports abnormal vaginal bleeding and Reports menorrhagia Physical Exam Vital Signs: BMI result Body Mass Index 29.9 Const General: cooperative, healthy appearing, no acute distress, well developed and alert Orientation/consciousness: patient oriented x3 HEENT Head: Yes normal to inspection Eyes General: appearance normal, both eyes and all related structures Neck Neck: Yes normal visual inspection Thyroid: Thyroid normal Chest Chest palpation & inspection: normal inspection of the chest Breast/axilla inspection: normal inspection of the breasts (no puckering, dimpling, peau de orange, retraction, discharge, masses) Breast/axilla palpation: normal palpation of the breasts Resp Effort & Inspection: normal respiratory effort GI Inspection: Yes normal to inspection Palpation (GI): Soft to palpation Rectal Exam - Female: deferred General: Yes bladder normal to palpation External Female Exam: normal external appearance and normal appearance of the urethra Speculum Exam - Vagina: normal appearance of the vagina, normal palpation and normal vaginal discharge Speculum Exam - Cervix: normal appearance of the cervix and normal palpation Bimanual exam- vagina & uterus: normal bimanual exam, normal palpation, uterine size normal, bladder normal to palpation and normal palpation Bimanual Exam- Adnexa, other: normal adnexae and no masses Skin General skin exam: no rashes or lesions noted Neuro General: patient oriented x3 Cognition (Neuro): normal cognition Extrem General: Yes normal to inspection Left lower extremity: edema (compression stocking noted today) Psych Attitude: cooperative Thought process: Normal thought process present Assessment & Plan Assessment & Plan (1) Encounter for well woman exam: Code(s): Z01.419 - Encounter for gynecological examination (general) (routine) without abnormal findings Plan: Discussed: Current recommendations for pap smears per ASCCP guidelines. Breast awareness and periodic self breast exams. Encouraged yearly mammograms. Maintaining a healthy lifestyle including a well balanced diet and routine exercise. All of her questions and concerns were addressed to the best of my ability. RTO in one year for AG. (2) Complex ovarian cyst: Code(s): N83.299 - Other ovarian cyst, unspecified side Plan: Reviewed US results ordered by PCP. Discussed complex ovarian cyst and reassured patient that these are mostly benign and should resolve on their own but some can be premalignant requiring further surveillance and workup Repeat US. Ordered given to be done early April. RTO for test results and EMBx. (3) Abnormal uterine bleeding (AUB): Code(s): N93.9 - Abnormal uterine and vaginal bleeding, unspecified Plan: Discussed typical work up including pelvic US, labs and EMBx. The EMBx purpose was explained to rule out atypia, hyperplasia and uterine cancer. Reviewed procedure and instructed to take ibuprofen with food 1 hour prior to procedure. Counseled on heavy/prolonged bleeding and anemia. Records request for recent labs done by PCP. Recommended referral to [facility] Script Writer if needed for any further recommendations and evaluation given her hx of Factor V deficiency and the patient requesting a female provider. Will have further discussion regarding referral at next visit pending test results. All of her questions and concerns were addressed to the best of my ability and shared decision making: for EMBx. She is agreeable to plan of care. Orders: Orders US pelvic and transvaginal 04/13/23 N83.299 - Other ovarian cyst, unspecified side Coding Level of Care Code Est Pt Prev Care 40-64y(10553) Diagnoses Encounter for well woman exam Z01.419 Complex ovarian cyst N83.299 Abnormal uterine bleeding (AUB) N93.9
[2023-04-03 08:19] VITALS: BMI 29.9
== END 2023-04-03 09:22 | disposition home or self-care (01) ==
LOC: HO.HWS 08:06
PROVIDERS: PCP Internal Medicine; Visit Provider Advanced Practice Midwife
DX: Z01.419 Encounter for gynecological examination (general) (routine) without abnormal findings (principal); N83.299 Other ovarian cyst, unspecified side; N93.9 Abnormal uterine and vaginal bleeding, unspecified
CPT/HCPCS: 99396

== ENCOUNTER 2023-04-06 08:14 | Outpatient (AMB) | payer MEDICAID, SELFPAY ==
--- NOTE | 2023-04-06 08:34 | MHC.OFFVIS ---
Intake Vital Signs 04/06/23 08:44 Height 5 ft 4 in Weight 175 lb 2 oz BMI 30.1 BP 132/81 Blood Pressure Location Rt brachial Position Sitting Pulse 59 Pulse Source Pulse Oximeter Pulse Oximetry (%) 99 Oxygen Delivery Method Room Air Intake Visit Reasons: Bilat knee inj. 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 w/cortisone per Mars Steele HPI Details 47-year-old female presenting today for a bilateral knee injection with cortisone. The patient was referred by Akanksha Steele MELLOWING MACHINE OPERATOR for bilateral knee therapeutic cortisone injections. She has chronic swelling of the left lower extremity after a DVT in 2008 following a . She had a recurrence of DVT in 2014. She states that she has been receiving cortisone injections 2-3 times every six months for foot, and heel pain thought to be secondary to plantar fasciitis. She reports difficulty standing after waking up in the morning due to dizziness and instability on her feet. She states that she prays while kneeling five times per day. When she kneels with her knees on the floor, she feels an electric paresthesia in her patellar region that does not radiate down. She is currently using a cane due to leg pain and recurrent episodes of dizziness. She denies knee pain at any other time other than when she is kneeling on the knees. She also endorses occasional low back pain associated with some radiating pain in her thighs. History is notable for 3 pregnancies with 2 SVDs and a . She also has a history of venous reflux. The left hand has discoloration and swelling of the 3rd through 5th fingers that occurred, according to her, after an IV infiltrated in 2008. She denies any significant pain; however, she has occasional numbness in her hand. [facility] Medical History Chronic ulcer of leg Complex ovarian cyst Depression with anxiety Factor V deficiency Hx of migraine headaches Hypothyroid Orthostatic hypotension Ulcer of lower extremity Venous insufficiency Surgical History H/O skin graft History of left breast biopsy Family History Maternal Aunt Stomach cancer Mother Colon cancer Father Factor V deficiency Social History Household Members Other:: lives with 2 daughters Alcohol intake: never Patient Tobacco Use Status: Never used Tobacco Female Reproductive History Menstrual Age of Menarche: 12 Review of Systems Const All systems reviewed & are unremarkable except as noted in HPI and below Physical Exam Vital Signs: Last Vital Signs Pulse 59 04/06/23 08:44 BP 132/81 04/06/23 08:44 Pulse Ox 99 04/06/23 08:44 Oxygen Delivery Method Room Air 04/06/23 08:44 BMI result Body Mass Index 30.1 General: Appears afebrile. Alert and oriented. Mood and affect appropriate. Follows and participates in conversation appropriately. Respiratory effort is unlabored. Able to transition from sit to stand unassisted. Ambulates with bilaterally normal heel strike and toe off. Right Knee: No swelling, tenderness or pain around the knee joint with superficial or deep palpation or manipulation of the patella. No pain with weight-bearing. Knee range of motion is intact. Results Reviewed Results Reviewed: 12/16/22: XR KNEE, RIGHT FINDINGS: Bones and soft tissues are normal. No fracture or joint effusion. Alignment is anatomic. Joint spaces are well maintained. No abnormal soft tissue calcification. IMPRESSION: Normal right knee. Assessment & Plan Assessment & Plan (1) Lumbar radiculitis: Code(s): M54.16 - Radiculopathy, lumbar region Plan I do not think she is suffering from knee osteoarthritis based on a reassuring physical exam as well as imaging and lack of pain with weight-bearing. Her complaint is abnormal paresthesia sensations when she kneels on the floor. I recommended that she use padded prayer mats to minimize pressure on the knees. Some of her radicular/paresthesia sensations may be coming from a lumbar radiculitis. A referral was provided to physical therapy for strengthening exercises of back muscles. The patient will receive a call to schedule an appointment. Scribed for Dr. Ferraro by Gabo Alberto, medical malpractice paralegal, on 04/06/2023. I, Dr. Ferraro, have personally reviewed and agree with the information entered by the scribe. Orders: Orders PT Evaluation and Treatment 04/06/23 M54.16 - Radiculopathy, lumbar region Coding Level of Care Code Est Pt Level 3 (43059) Diagnoses Lumbar radiculitis M54.16
[2023-04-06 08:44] VITALS: BP 132/81; PULSE 59; O2SAT 99; BMI 30.1
== END 2023-04-06 09:18 | disposition home or self-care (01) ==
PROVIDERS: PCP Internal Medicine; Visit Provider Internal Medicine
DX: M54.16 Radiculopathy, lumbar region (principal)
CPT/HCPCS: 99213

== ENCOUNTER → 2023-04-06 08:14 | Outpatient (BNVA) | payer MEDICAID, SELFPAY | PROVIDERS: PCP Internal Medicine; Visit Provider Internal Medicine | DX: M54.16 Radiculopathy, lumbar region (principal) | CPT/HCPCS: 99212 ==

== ENCOUNTER 2023-04-22 12:00 | Outpatient (REF) | payer MEDICAID, SELFPAY ==
[2023-04-22 14:06] LABS: TSH reflex Free T4 1.43 uIU/mL (0.32-4.0)
== END 2023-04-22 12:01 | disposition home or self-care (01) ==
LOC: HO.HHCL 12:00
PROVIDERS: Visit Provider Internal Medicine
DX: E03.9 Hypothyroidism, unspecified (principal)
CPT/HCPCS: 36415; 84443

== ENCOUNTER 2023-04-22 15:12 | Outpatient (REF) | payer MEDICAID, SELFPAY ==
--- NOTE | ~2023-04-22 | US_ITS ---
EXAMINATION: US PELVIS CLINICAL INFORMATION: Ovarian cyst. LMP unknown. COMPARISON: Pelvic ultrasound 02/24/2023. TECHNIQUE: Ultrasound of the pelvis is performed using both transabdominal and transvaginal transducers along with Doppler. Transvaginal imaging is performed due to inadequate visualization transabdominally. FINDINGS: The uterus is retroverted and retroflexed measuring 9 x 6.7 x 6 cm. There is a 1.6 x 1.4 x 1.4 cm right intramural lesion, previously measuring 1.5 x 1.4 x 1.7 cm. No additional uterine lesion. The endometrium measures 11 mm in thickness without discrete focal abnormality. The ovaries are normal in morphology with preserved flow at the moment of this examination. The right ovary measures 2.8 x 2.2 x 2.3 cm, 7.4 mL. The left ovary measures 3.6 x 2.5 x 2 cm, 10 mL. Simple appearing follicles in both ovaries, largest in the left side measuring 2.3 x 2.1 x 1.7 cm with no associated septations or mural nodules. Previously described complex cyst in the left ovary is resolved, likely related with a hemorrhagic cyst. No adnexal mass. No free fluid. US/US pelvic and transvaginal IMPRESSION: 1. Interval resolution of the previously described complex cyst in the left ovary, likely related with a hemorrhagic cyst. 2. There is a 1.6 cm intramural lesion in the right uterus, statistically favoring to represent a fibroid, unchanged. 3. No suspicious pelvic mass. 4. No free fluid.
== END 2023-04-22 15:13 | disposition home or self-care (01) ==
LOC: HO.US 15:12
PROVIDERS: PCP Internal Medicine; Visit Provider Advanced Practice Midwife
DX: N83.299 Other ovarian cyst, unspecified side (principal)
CPT/HCPCS: 76830; 76856

== ENCOUNTER 2023-04-30 09:53 | Outpatient (REF) | payer MEDICAID, SELFPAY ==
--- NOTE | ~2023-04-30 | MM_ITS ---
EXAMINATION: MM DIAGNOSTIC DIGITAL MAMMOGRAPHY, BILATERAL CLINICAL INFORMATION: 6 month follow-up for probably benign bilateral breasts calcifications. History of benign calcification stereotactic biopsy upper outer left breast, anterior one third with placement of top hat biopsy clip. Patient also due for bilateral screening exam. COMPARISON: Mammography: 10/23/2022, 04/29/2022, 04/22/2022, and 04/08/2022. TECHNIQUE: Digital mammography is performed in craniocaudal and mediolateral oblique views along with computer-aided detection (CAD). In addition, full-field 3-D bilateral digital ML views were performed, as well as 2-D spot magnification CC and ML views of both breasts. FINDINGS: The breasts are heterogeneously dense, which may obscure small masses (ACR BI-RADS breast composition Category c). There is redemonstration of scattered calcifications in both breasts, which are loosely grouped, fine, and predominantly punctate. A few appear to layer on the ML projections, especially in the inferior aspect of the right breast. There is a post benign stereotactic biopsy clip in the upper outer left breast anterior one third. There has been no aggressive change of these calcifications. These remain probably benign. Otherwise, There are no suspicious masses or areas of architectural distortion in either breast. Similar parenchymal asymmetry noted left breast upper outer quadrant, posterior one third. The parenchymal pattern is stable from prior exams. Results were provided to the patient at time of visit by the technologist. MM/MM diagnostic mammo BI IMPRESSION: 1. Stable benign appearing scattered loosely grouped fine calcifications bilateral breasts without aggressive change, remaining probably benign. Six-month interval follow-up recommended to include standard spot magnification views. 2. Otherwise, no findings suspicious for malignancy. ASSESSMENT: BI-RADS BI-RADS 3 - Probably benign finding(s) - 6 month follow-up suggested RECOMMENDATION: 6 Month F/U This patient's information was entered into a reminder system with a target due date for their next mammogram.
== END 2023-04-30 09:54 | disposition home or self-care (01) ==
LOC: HO.MAMMO 09:53
PROVIDERS: PCP Internal Medicine; Visit Provider Internal Medicine
DX: R92.1 Mammographic calcification found on diagnostic imaging of breast (principal)
CPT/HCPCS: 77062; 77066

== ENCOUNTER → 2023-04-30 11:00 | Outpatient (BNV) | payer MEDICAID, SELFPAY | PROVIDERS: PCP Internal Medicine; Visit Provider Radiology Diagnostic Radiology | DX: R92.1 Mammographic calcification found on diagnostic imaging of breast (principal) | CPT/HCPCS: 77062; 77066 ==

== ENCOUNTER 2023-05-05 12:54 | Outpatient (RCR) | payer MEDICAID, SELFPAY ==
--- NOTE | 2023-05-05 14:49 | MHC.PT.EP ---
[place] Office [place] Office [place] Office [address] Vicente Oquendo [address] [phone] F: [phone] F: [phone] F: [phone] F: [phone] Physical Therapy Plan of Care Date of Evaluation: Date of Surgery: Diagnosis: Lumbar radiculitis Assessment: Pt is a 47 y/o female with orthostatic hypotension and venous insufficiency who is referred to PT for reval and treat of lumbar radiculopathy who presents with low back pain with instability resulting in decreased tolerance or ability for prolonged sitting and standing, sleep, personal care, walking, and lifting secondary to decreased hip strength, pelvic asymmetry, increased tissue tension in low back and hips, and pain. Pt is motivated and is deemed an appropriate candidate to receive skinned PT services to address their physical impairments in order to improve their functional ability. Frequency and Duration: The patient will be seen 2x/wk x4wks Short Term Goals: Initiate HEP Pt baseline pain will improve to <5/10; initial: 6-7/10 Hand Frame Surgical Elastic Knitter Goals: [place] with HEP Improve Noe outcome measure score by at least 13 points; initial: 43/50 Pt will be able to tolerate standing for more than 10 minutes without pain; initial: pain prevents patient from standing more than 10 minutes. Pt will improve B hip abd strength by at least 1/2 MMT grade; initial: 4-/5. Treatment Plan: Modalities to reduce pain, spasms and effusion. Manual therapy to restore motion and function. Therapeutic exercise to improve strength and flexibility. Neuromuscular re-education for posture and balance. Therapeutic activities to return to functional activities of daily living. Electronically signed by: Carlos Alberto Mcelroy PT. Please sign and return to therapist. Thank you for your referral.
--- NOTE | 2023-06-03 08:53 | MHC.PT.DC ---
[facility] [place] Office [place] Office [place] Office [address] Vicente Oquendo [address] [facility] [phone] F: [phone] F: [phone] F: [phone] F: [phone] Physical Therapy Discharge Report Diagnosis: Lumbar radiculitis Date of Surgery: Date of Evaluation: 05/05/23 Date of Discharge: 06/03/23 Treatments to Date: 1 Cancellations to Date: 2 No Shows to Date: 2 Discharge Status: Visit Non-compliance Discharge Summary: PT is DC per attendance policy. Electronically signed by: Carlos Alberto Mcelroy PT Please sign and return to therapist. Thank you for your referral.
== END 2023-06-03 08:55 | disposition home or self-care (01) ==
LOC: HO.PTCHIC 12:54
PROVIDERS: PCP Internal Medicine; Visit Provider Internal Medicine
DX: M54.16 Radiculopathy, lumbar region (principal)
CPT/HCPCS: 97110; 97161

== ENCOUNTER 2023-05-29 08:35 | Outpatient (REF) | payer MEDICAID, SELFPAY | END 2023-05-29 08:36 | disposition home or self-care (01) | LOC: HO.XRAY 08:35 | PROVIDERS: PCP Internal Medicine; Visit Provider Nurse Practitioner Family | DX: M77.11 Lateral epicondylitis, right elbow (principal); M25.521 Pain in right elbow; Z86.718 Personal history of other venous thrombosis and embolism | CPT/HCPCS: 99212 ==

== ENCOUNTER 2023-05-29 08:35 | Outpatient (AMB) | payer MEDICAID, SELFPAY ==
--- NOTE | 2023-05-29 08:36 | A.OFFVIS_ITS ---
Intake Vital Signs 05/29/23 08:41 Height 5 ft 4 in Weight 175 lb 6 oz BMI 30.1 BP 118/71 Blood Pressure Location Lt brachial Position Sitting Pulse 59 Pulse Source Pulse Oximeter Pulse Oximetry (%) 99 Oxygen Delivery Method Room Air Intake Visit Reasons: (R) Arm Pain Intake Note: Pain today 8/10. Vice President Consulting Services Required: No Accompanied by: Self / Same As Patient Allergies aspirin Allergy (Unknown, Verified 05/29/23 08:40) bleeding HPI HPI Comments History of Present Illness Details Patient presents today with acute right elbow pain. She is right hand dominant. Reports sudden onset upon waking up in lateral aspect of right elbow. Pain elicited with wrist extension, arm supination, gripping, grasping, overhead reaches and fingers flexion, especially 2nd and 3rd. This is consistent with tennis elbow symptoms. Patient reports Tylenol, ice and heat therapy, over the counter cream applications do not alleviate her pain. Pain is constant and can intensify to 10/10 which causes her crying and stopping all right arm movement or prep her arm on a pillow. She is guarding her arm throughout today's exam and is very sensitive with mild palpation around lateral elbow. Patient cannot take NSAIDs due to Plavix intake. She denies any inciting events, trauma, injury or falls. Denies any fever, chills, malaise, numbness or tingling in her hand or wrist. Right elbow pain radiates into her right forearm. Presents with 4/5 right hand grasping and wrist flexion due to pain. PRIOR Dr. Ferraro 04/06/23: 47-year-old female presenting today for a bilateral knee injection with cortisone. The patient was referred by Akanksha Steele NP for bilateral knee therapeutic cortisone injections. She has chronic swelling of the left lower extremity after a DVT in 2008 following a . She had a recurrence of DVT in 2015. She states that she has been receiving cortisone injections 2-3 times every six months for foot, and heel pain thought to be secondary to plantar fasciitis. She reports difficulty standing after waking up in the morning due to dizziness and instability on her feet. She states that she prays while kneeling five times per day. When she kneels with her knees on the floor, she feels an electric paresthesia in her patellar region that does not radiate down. She is currently using a cane due to leg pain and recurrent episodes of dizziness. She denies knee pain at any other time other than when she is kneeling on the knees. She also endorses occasional low back pain associated with some radiating pain in her thighs. History is notable for 3 pregnancies with 2 SVDs and a C- section. She also has a history of venous reflux. The left hand has discoloration and swelling of the 3rd through 5th fingers that occurred, according to her, after an IV infiltrated in 2008. She denies any significant pain; however, she has occasional numbness in her hand. [facility] Medical History Complex ovarian cyst Chronic ulcer of leg Venous insufficiency Orthostatic hypotension Hx of migraine headaches Depression with anxiety Hypothyroid Ulcer of lower extremity Factor V deficiency Surgical History History of left breast biopsy H/O skin graft Family History Maternal Aunt Stomach cancer Mother Colon cancer Father Factor V deficiency Social History Household Members Other:: lives with 2 daughters Alcohol intake: never Patient Tobacco Use Status: Never used Tobacco Female Reproductive History Menstrual Age of Menarche: 12 Review of Systems Const All systems reviewed & are unremarkable except as noted in HPI and below Physical Exam Vital Signs: Last Vital Signs Pulse 59 05/29/23 08:41 BP 118/71 05/29/23 08:41 Pulse Ox 99 05/29/23 08:41 Oxygen Delivery Method Room Air 05/29/23 08:41 BMI result Body Mass Index 30.1 General: Appears afebrile. Alert and oriented. Mood and affect appropriate. Follows and participates in conversation appropriately. Respiratory effort is unlabored. Able to transition from sit to stand unassisted. Uses walker with ambulation. Ambulates with bilaterally normal heel strike and toe off. Extrem General: Yes capillary refill normal, Yes no clubbing, cyanosis or edema and Yes no calf tenderness Right upper extremity: elbow/forearm (Limited ROM due to pain.) Details: normal to inspection, tenderness (radial tunnel tenderness) Location: of the lateral epicondyle Details: with resisted supination, swelling Location: of the lateral epicondyle and distal pulses intact; no unusual warmth, no ecchymosis, no crepitus and no deformity Results Reviewed Results Reviewed: No imaging reports are available for review today. Assessment & Plan Assessment & Plan (1) Lateral epicondylitis of right elbow: Code(s): M77.11 - Lateral epicondylitis, right elbow (2) Right elbow pain: Code(s): M25.521 - Pain in right elbow Plan 1. Right elbow xray to rule out calcific tendonitis. If normal, will proceed with US if recommended by Orthopedics. 2. Will refer to PT for right elbow pain related to lateral epicondylitis. Patient is currently undergoing PT for bilateral knee pain as well. 3. Orthopedic Referral to rule out any tendon abnormalities. Script provided for elbow brace. Continue ice and heat therapy, rest, avoid grasping or lifting with right arm. Patient cannot take NSAIDs due to being on Plavix. Short script sent for Tylenol #3, side effects and precautions were discussed with patient. All questions and concerns have been answered and patient agreed with the plan. Follow up as needed. Orders: Orders XR elbow RT 2V Today M77.11 - Lateral epicondylitis, right elbow PT Evaluation and Treatment Today M25.521 - Pain in right elbow, M77.11 - Lateral epicondylitis, right elbow Referrals Orthopedics Referral M25.521 - Pain in right elbow, M77.11 - Lateral epicondylitis, right elbow Medications: New arm brace (JENNIFER Elbow Brace) As directed 1 ea 0RF pain M77.11 - Lateral epicondylitis, right elbow acetaminophen-codeine 300-30 mg 1 tab PO Q8H 7 days PRN 21 tabs 0RF pain M25.521 - Pain in right elbow, M77.11 - Lateral epicondylitis, right elbow Coding Level of Care Code Est Pt Level 4 (29401) Diagnoses Lateral epicondylitis of right elbow M77.11 Right elbow pain M25.521
[2023-05-29 08:41] VITALS: BP 118/71; PULSE 59; O2SAT 99; BMI 30.1
== END 2023-05-29 08:56 | disposition home or self-care (01) ==
PROVIDERS: PCP Internal Medicine; Visit Provider Nurse Practitioner Family
DX: M77.11 Lateral epicondylitis, right elbow (principal); M25.521 Pain in right elbow
CPT/HCPCS: 99214

== ENCOUNTER 2023-07-07 08:09 | Outpatient (AMB) | payer MEDICAID, SELFPAY ==
--- NOTE | 2023-07-07 08:11 | A.OFFVIS_ITS ---
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 She reports bleeding for most of this month. She tried an IUD in the past and did not like the side effect of edema. She's has a sales and service specialist at [facility] for her Thrombolic disorder, had iron infusion. The patient is here today for an endometiral biopsy for AUB to rule out any pathology including atypical, hyperplasia or cancer cells of the uterus. She was counseled regarding anticipatory guidance for the procedure including the risks for pain, infection, bleeding, perforation, potential injury to the tissues may include the cervix, uterus, tubes, bladder and bowels. These injuries may include further treatment and evaluation including surgery, blood transfusions, antibiotics, hospitalizations and anesthesia. Permanent injury and scarring can occur. She was consented for the procedure, and the consent forms were signed. She is agreeable to have the procedure today. All questions were answered. A urine test was obtained and was negative. She denies any risks to . COUNTS INCLUDE 234 BEDS AT THE [facility] Medical History (Updated 07/07/23 @ 08:38 by Shereen Horn CNM) Complex cyst of left ovary Complex ovarian cyst Chronic ulcer of leg Venous insufficiency Orthostatic hypotension Hx of migraine headaches Depression with anxiety Hypothyroid Ulcer of lower extremity Factor V deficiency Surgical History History of left breast biopsy H/O skin graft Family History Maternal Aunt Stomach cancer Mother Colon cancer Father Factor V deficiency Social History Household Members Other:: lives with 2 daughters Alcohol intake: never Patient Tobacco Use Status: Never used Tobacco Female Reproductive History Menstrual Age of Menarche: 12 Date of last menstrual period: 06/29/23 Physical Exam Vital Signs: BMI result Body Mass Index 30.0 Office Procedures Endometrial Biopsy Details: Endometrial Biopsy Procedure The patient was placed in the dorsal lithotomy position and a sterile speculum inserted. Using aseptic technique for the procedure. The cervix was cleansed with Betadine x 3 swabs. A single toothed tenaculum was placed on the cervix for stabilization and the uterus was sounded to 9 cm with a 4mm pipelle for 3 passes. Minimal bleeding was observed. The tissue sample was placed in formalin in a patient labeled container by staff assisting and sent to the pathology department for processing and interpretation. The patient tolerate the procedure well and was in good condition when leaving the department. [id number] Biopsy Results AMB Test Urine AMB Test Urine Negative Last Edit by GABY Valenzuela on 07/07/23 08:34 Results Reviewed Results Reviewed: Laboratory Last Values Tst Clinic Negative 07/07/23 08:33 [place] [address] Ultrasound Report Signed Patient: Shanna Clifford MR#: [id number] : 1975 Acct:[id number] Age/Sex: 47 / F ADM Date: 04/22/23 Loc: HO.US Attending Dr: Shereen Horn CNM Ordering Physician: Shereen Horn CNM Date of Service: 04/22/23 Procedure(s): US pelvic and transvaginal Accession Number(s): [id number] cc: Shereen Horn CNM~ EXAMINATION: US PELVIS CLINICAL INFORMATION: Ovarian cyst. LMP unknown. COMPARISON: Pelvic ultrasound 02/24/2023. TECHNIQUE: Ultrasound of the pelvis is performed using both transabdominal and transvaginal transducers along with Doppler. Transvaginal imaging is performed due to inadequate visualization transabdominally. FINDINGS: The uterus is retroverted and retroflexed measuring 9 x 6.7 x 6 cm. There is a 1.6 x 1.4 x 1.4 cm right intramural lesion, previously measuring 1.5 x 1.4 x 1.7 cm. No additional uterine lesion. The endometrium measures 11 mm in thickness without discrete focal abnormality. The ovaries are normal in morphology with preserved flow at the moment of this examination. The right ovary measures 2.8 x 2.2 x 2.3 cm, 7.4 mL. The left ovary measures 3.6 x 2.5 x 2 cm, 10 mL. Simple appearing follicles in both ovaries, largest in the left side measuring 2.3 x 2.1 x 1.7 cm with no associated septations or mural nodules. Previously described complex cyst in the left ovary is resolved, likely related with a hemorrhagic cyst. No adnexal mass. No free fluid. US/US pelvic and transvaginal IMPRESSION: 1. Interval resolution of the previously described complex cyst in the left ovary, likely related with a hemorrhagic cyst. 2. There is a 1.6 cm intramural lesion in the right uterus, statistically favoring to represent a fibroid, unchanged. 3. No suspicious pelvic mass. 4. No free fluid. Dictated By: Letty Smith Signed By: <Electronically signed by Letty Smith in OV> 04/24/23 1622 Assessment & Plan Assessment & Plan (1) Encounter to discuss test results: Code(s): Z71.2 - Person consulting for explanation of examination or test findings (2) Abnormal uterine bleeding (AUB): Code(s): N93.9 - Abnormal uterine and vaginal bleeding, unspecified Plan Endometrial Biopsy Post Procedure Care Nothing in the vagina including: tampons, douching or sex There may be some post procedure bleeding for several days, this bleeding is usually light and may turn to a light brown or pink color. Mild cramps may occurs. You may take an over the counter mild analgesic such as Tylenol or Advil (if no allergies) per the manufactures recommendation on dosing, frequency, and follow the directions completely. Call the office if any: fever (over 100.4), flu like symptoms, abdominal pain (worse than cramping), foul smelling or infected appearing vaginal discharge, heavy bleeding. You will be scheduled for a follow up visit for results. If indicated: RTO for US follow up and EMB results. Discussed future referral to [facility] for management/treatment for possible ablation with female provider. All of her questions and concerns were addressed to the best of my ability and shared decision making. She is agreeable to the plan of care. Orders: Orders AMB HCG Urine Test Today Z32.02 - Encounter for test, result negative Surgical Today N93.9 - Abnormal uterine and vaginal bleeding, unspecified US pelvic and transvaginal Today N83.292 - Other ovarian cyst, left side Complete Blood Count no Diff Today D68.2 - Hereditary deficiency of other clotting factors, N93.9 - Abnormal uterine and vaginal bleeding, unspecified, Z79.01 - intermediate manager (current) use of anticoagulants Coding Level of Care Code Procedure Only Diagnoses Encounter to discuss test results Z71.2 Abnormal uterine bleeding (AUB) N93.9 CPT Codes Endometrial Biopsy - CPT: 01689-[id number] Biopsy ([id number])
== END 2023-07-07 09:12 | disposition home or self-care (01) ==
PROVIDERS: PCP Internal Medicine; Visit Provider Advanced Practice Midwife
DX: Z71.2 Person consulting for explanation of examination or test findings (principal); N93.9 Abnormal uterine and vaginal bleeding, unspecified; Z32.02 Encounter for pregnancy test, result negative
CPT/HCPCS: 58100

== ENCOUNTER 2023-07-07 08:09 | Outpatient (REF) | payer MEDICAID, SELFPAY ==
[2023-07-07 09:58] LABS: Hematocrit 45.6 % (37.0-47.0); Mean Corpuscular HGB Conc 32.9 g/dl (31.0-35.0); Mean Corpuscular Hemoglobin 27.2 pg (27.0-33.0); Mean Corpuscular Volume 82.8 fL (80.0-98.0); Mean Platelet Volume 10.9 fL (9.4-12.3); Platelet Count 268 X10*3/uL (160-400); Red Blood Count 5.51 X10*6/uL (4.20-5.50); Red Cell Distribution Width 14.6 % (11.0-16.0); White Blood Count 5.9 X10*3/uL (4.8-10.8)
== END 2023-07-07 08:10 | disposition home or self-care (01) ==
LOC: HO.LAB 08:09
PROVIDERS: PCP Internal Medicine; Visit Provider Advanced Practice Midwife
DX: N93.9 Abnormal uterine and vaginal bleeding, unspecified (principal); D68.2 Hereditary deficiency of other clotting factors; Z79.01 Long term (current) use of anticoagulants
CPT/HCPCS: 36415; 58100; 81025; 85027; 88305

== ENCOUNTER 2023-09-14 11:02 | Outpatient (REF) | payer MEDICAID, SELFPAY ==
--- NOTE | ~2023-09-14 | US_ITS ---
EXAMINATION: US PELVIS CLINICAL INFORMATION: Ovarian cysts left side. Last menstrual period August 23, 2023. COMPARISON: None available. TECHNIQUE: Ultrasound of the pelvis is performed using both transabdominal and transvaginal transducers along with Doppler. Transvaginal imaging is performed due to inadequate visualization transabdominally. FINDINGS: The uterus is heterogeneous and measures 8.7 x 7.4 x 7.9 cm, volume 255.95 mL. Multiple fibroids are identified, although precise margins are difficult to fully discern and therefore measurements are approximate. 1.7 x 1.5 x 1.8 cm fibroid was not previously identified. 2.3 x 1.8 x 2.1 cm fibroid, previously 1.6 x 1.4 x 1.4 cm. Endometrial thickness is 1.4 cm. Endometrium is heterogeneous and echogenic, although visualization is limited. Small amount of free fluid in the pelvis. Right ovary is seen only on limited transabdominal ultrasound images and measures 2.9 x 2.1 x 1.9 cm, volume 6.2 mL. Left ovary measures 2.9 x 1.8 x 1.5 cm. Complex 1.4 x 1.2 x 1.2 cm cyst is complex with low-level internal echoes. US/US pelvic and transvaginal IMPRESSION: 1. Fibroid uterus. 2. Left ovarian 1.4 cm complex cyst. 3. Right ovary is seen only on limited transabdominal ultrasound images and is grossly unremarkable. 4. Small amount of free fluid in the pelvis. 5. Endometrium is heterogeneous and echogenic, with thickness of 1.4 cm, although visualization is limited. 6. Recommend follow-up ultrasound in 6-8 weeks.
== END 2023-09-14 11:03 | disposition home or self-care (01) ==
LOC: HO.US 11:02
PROVIDERS: PCP Internal Medicine; Visit Provider Advanced Practice Midwife
DX: N83.292 Other ovarian cyst, left side (principal)
CPT/HCPCS: 76830; 76856

== ENCOUNTER 2023-10-22 11:12 | Outpatient (REF) | payer MEDICAID, SELFPAY ==
[2023-10-23 09:54] LABS: BV Int Neg Control Negative (Negative); BV Int Pos Control Positive (Positive)
== END 2023-10-22 11:13 | disposition home or self-care (01) ==
LOC: HO.LAB 11:12
PROVIDERS: PCP Internal Medicine; Visit Provider Advanced Practice Midwife
DX: N83.292 Other ovarian cyst, left side (principal); N89.8 Other specified noninflammatory disorders of vagina; Z71.2 Person consulting for explanation of examination or test findings
CPT/HCPCS: 87480; 87510; 87660; 99212

== ENCOUNTER 2023-10-22 11:12 | Outpatient (AMB) | payer MEDICAID, SELFPAY ==
--- NOTE | 2023-10-22 11:19 | MHC.OFFVIS ---
Intake Vital Signs 10/22/23 11:23 Height 5 ft 4 in Weight 175 lb BMI 30.0 BP 112/70 Intake Visit Reasons: Ultra sound follow up/Amharic/45 min Healthcare Customer Service Required: Yes Healthcare Customer Service Language: Amharic Healthcare Customer Service Name: Arlene [id number] Information Interpreted: non-clinical & clinical Allergies aspirin Allergy (Unknown, Verified 10/22/23 11:19) bleeding Is last menstrual period known: Yes Last menstrual period: 10/13/23 HPI HPI Comments History of Present Illness Details Patient is here today for a follow up ultrasound. She has a history of AUB, reports her last cycles lasting 5 days heavy for 2 days with some cramping. She uses Tylenol and a heating pad. She has history of IUD user but had significant leg edema and had presented in the emergency room and the IUD was removed immediately. She dislikes the side effects history of factor 5 Leiden she is wondering if she could take medication for her symptoms as she was treated in her country [place] origin with pills in the past. History of history of left complex ovarian cyst resolved on last ultrasound, repeat ultrasound scan for a follow-up on fibroids and noted a left ovarian complex cyst again. She reports a vaginal odor today. [facility] Medical History (Updated 07/07/23 @ 08:38 by Shereen Horn CNM) Complex cyst of left ovary Complex ovarian cyst Chronic ulcer of leg Venous insufficiency Orthostatic hypotension Hx of migraine headaches Depression with anxiety Hypothyroid Ulcer of lower extremity Factor V deficiency Surgical History History of left breast biopsy H/O skin graft Family History Maternal Aunt Stomach cancer Mother Colon cancer Father Factor V deficiency Social History Household Members Other:: lives with 2 daughters Alcohol intake: never Patient Tobacco Use Status: Never used Tobacco Female Reproductive History Menstrual Age of Menarche: 12 Date of last menstrual period: 10/13/23 Review of Systems Const All systems reviewed & are unremarkable except as noted in HPI and below Physical Exam Vital Signs: Last Vital Signs BP 112/70 10/22/23 11:23 BMI result Body Mass Index 30.0 Const General: cooperative, healthy appearing and no acute distress Orientation/consciousness: patient oriented x3 GI Inspection: Yes normal to inspection Palpation (GI): Soft to palpation and Other GI palpation findings present (Nontender) Rectal Exam - Female: visual inspection normal General: Yes bladder normal to palpation External Female Exam: normal appearance of the urethra Speculum Exam - Vagina: normal appearance of the vagina, normal palpation and normal vaginal discharge Speculum Exam - Cervix: normal appearance of the cervix and normal palpation Bimanual exam- vagina & uterus: normal bimanual exam, normal palpation, uterine size normal, bladder normal to palpation, normal palpation, uterine shape normal and non-tender Bimanual Exam- Adnexa, other: normal adnexae Neuro General: patient oriented x3 Results Reviewed Results Reviewed: [address] [address] Ultrasound Report Signed Patient: Shanna Clifford MR#: [id number] : 1975 Acct:[id number] Age/Sex: 47 / F ADM Date: 09/14/23 Loc: HO.US Attending Dr: Shereen Horn CNM Ordering Physician: Shereen Horn CNM Date of Service: 09/14/23 Procedure(s): US pelvic and transvaginal Accession Number(s): [id number] cc: Shauna Martínez MD; Shereen Horn CNM~ EXAMINATION: US PELVIS CLINICAL INFORMATION: Ovarian cysts left side. Last menstrual period August 23, 2023. COMPARISON: None available. TECHNIQUE: Ultrasound of the pelvis is performed using both transabdominal and transvaginal transducers along with Doppler. Transvaginal imaging is performed due to inadequate visualization transabdominally. FINDINGS: The uterus is heterogeneous and measures 8.7 x 7.4 x 7.9 cm, volume 255.95 mL. Multiple fibroids are identified, although precise margins are difficult to fully discern and therefore measurements are approximate. 1.7 x 1.5 x 1.8 cm fibroid was not previously identified. 2.3 x 1.8 x 2.1 cm fibroid, previously 1.6 x 1.4 x 1.4 cm. Endometrial thickness is 1.4 cm. Endometrium is heterogeneous and echogenic, although visualization is limited. Small amount of free fluid in the pelvis. Right ovary is seen only on limited transabdominal ultrasound images and measures 2.9 x 2.1 x 1.9 cm, volume 6.2 mL. Left ovary measures 2.9 x 1.8 x 1.5 cm. Complex 1.4 x 1.2 x 1.2 cm cyst is complex with low-level internal echoes. US/US pelvic and transvaginal IMPRESSION: 1. Fibroid uterus. 2. Left ovarian 1.4 cm complex cyst. 3. Right ovary is seen only on limited transabdominal ultrasound images and is grossly unremarkable. 4. Small amount of free fluid in the pelvis. 5. Endometrium is heterogeneous and echogenic, with thickness of 1.4 cm, although visualization is limited. 6. Recommend follow-up ultrasound in 6-8 weeks. Dictated By: Edie Harris MD Signed By: <Electronically signed by Edie Harris MD in OV> 09/16/23 0713 DD/ 1157 TD/TT: Timber Cruiser: Assessment & Plan Assessment & Plan (1) Encounter to discuss test results: Code(s): Z71.2 - Person consulting for explanation of examination or test findings (2) Complex cyst of left ovary: Code(s): N83.292 - Other ovarian cyst, left side (3) Vaginal odor: Code(s): N89.8 - Other specified noninflammatory disorders of vagina Plan Discussed: BV panel obtained. Counseled regarding findings of: Complex ovarian cyst, which is often benign, and most resolve on their own overtime. Some develop into premalignant or malignant tumors. Further monitoring and evaluation is recommended with US, possible CT, or MRI study. If persists, or is indicated (Ca-125, Carbohydrate Antigen 19-9, & Carcinoembryonic Antigen) labs will be ordered and referral to [facility] or general gynecology for MD care if indicated for possible surgical consult. If any prolonged or heavy bleeding or increase in pelvic pain to notify the office immediately. Follow up in person for test results. Uncertain what she was given in another country for treatment may not be the same as regulated in the [place]. Await ultrasound findings for plan of care and discussion of treatment modalities. All of her questions and concerns were addressed to the best of my ability and shared decision making. She is agreeable to the plan of care. This note is constructed using voice recognition software. While every effort has been made to ensure accuracy, rodding machine tender errors may have been included. Orders: Orders US pelvic and transvaginal 6 Weeks N83.292 - Other ovarian cyst, left side Bacterial Vaginosis Panel 6 Weeks N83.292 - Other ovarian cyst, left side, N89.8 - Other specified noninflammatory disorders of vagina Coding Level of Care Code Est Pt Level 4 (12791) Diagnoses Encounter to discuss test results Z71.2 Complex cyst of left ovary N83.292 Vaginal odor N89.8
[2023-10-22 11:23] VITALS: BP 112/70
== END 2023-10-22 11:55 | disposition home or self-care (01) ==
LOC: HO.HWS 11:12
PROVIDERS: PCP Internal Medicine; Visit Provider Advanced Practice Midwife
DX: Z71.2 Person consulting for explanation of examination or test findings (principal); N83.292 Other ovarian cyst, left side; N89.8 Other specified noninflammatory disorders of vagina
CPT/HCPCS: 99214

== ENCOUNTER 2023-11-10 11:26 | Outpatient (REF) | payer MEDICAID, SELFPAY ==
[2023-11-10 14:10] LABS: MANUAL DIFF FLAG NO
[2023-11-10 14:16] LABS: Basophils Percent Auto 0.8 % (0-2); Eosinophils Absolute Auto 0.1 X10*3/uL (0.0-0.4); Eosinophils Percent Auto 1.3 % (0-4); Hematocrit 43.5 % (37.0-47.0); Hemoglobin 14.2 g/dl (12.0-16.0); Imm Gran Abs Auto 0.01 X10*3/uL (0.00-0.03); Imm Gran Pct Auto 0.2 % (0.0-0.4); Lymphocytes Absolute Auto 1.2 X10*3/uL (1.2-4.9); Lymphocytes Percent Auto 25.1 % (20-40); Mean Corpuscular HGB Conc 32.6 g/dl (31.0-35.0); Mean Corpuscular Hemoglobin 26.6 pg (27.0-33.0); Mean Corpuscular Volume 81.5 fL (80.0-98.0); Mean Platelet Volume 11.2 fL (9.4-12.3); Monocytes Absolute Auto 0.3 X10*3/uL (0.1-1.2); Monocytes Percent Auto 5.9 % (2-11); Neutrophils Absolute Auto 3.1 x10*3/uL (2.0-8.3); Neutrophils Percent Auto 66.7 % (45-73); Platelet Count 268 X10*3/uL (160-400); Red Blood Count 5.34 X10*6/uL (4.20-5.50); Red Cell Distribution Width 14.3 % (11.0-16.0); White Blood Count 4.7 X10*3/uL (4.8-10.8)
[2023-11-10 14:43] LABS: Anion Gap 12 (12-20); Blood Urea Nitrogen 17 mg/dL (9-16); Calcium 9.4 mg/dL (8.4-10.2); Carbon Dioxide 26 mmol/L (22-29); Chloride 107 mmol/L (96-108); Estimated Glomerular Filt Rate > 60; Glucose Random 94 mg/dL (60-115); Iron 98 mcg/dL (30-160); Percent Iron Saturation 30 % (15-50); Potassium 3.6 mmol/L (3.3-5.1); Sodium 141 mmol/L (135-145); Total Iron Binding Capacity 327 mcg/dL (228-428); Unsaturated Iron Binding 229 ug/dL
[2023-11-10 14:49] LABS: TSH reflex Free T4 1.65 uIU/mL (0.32-4.0); Vitamin D 25-OH Total 18.1 ng/mL (>30)
[2023-11-10 15:44] LABS: Estimated Average Glucose 97 mg/dL; Hemoglobin A1C 111.9193 umol/L
[2023-11-11 11:55] LABS: Folate 15.2 ng/mL (> or = 4.0); Vitamin B12 474 pg/mL (200-900)
== END 2023-11-10 11:27 | disposition home or self-care (01) ==
LOC: HO.HHCL 11:26
PROVIDERS: Visit Provider Internal Medicine
DX: R53.82 Chronic fatigue, unspecified (principal)
CPT/HCPCS: 36415; 80048; 82306; 82607; 82746; 83036; 83540; 84443; 85025

== ENCOUNTER 2023-11-11 08:05 | Outpatient (REF) | payer MEDICAID, SELFPAY ==
--- NOTE | ~2023-11-11 | MR_ITS ---
EXAMINATION: MRI Left foot. CLINICAL INFORMATION: Left foot pain over the third and fourth toes, difficulty walking. TECHNIQUE: Examination was performed in a high field strength MRI scanner. Multiplanar MRI images were acquired without intravenous contrast. Post contrast examination could not be performed due to patient's refusal for intravenous contrast administration. FINDINGS: BONES: The visualized Left foot bones including tarsals, metatarsals and phalanges are intact with normal signal and alignment. At the medial border of left talonavicular joint, a cystic lesion is partially visualized, measuring 0.7 cm in AP diameter, 0.6 cm in width, 1.7 cm in vertical height in the visualized portion TENDONS: The flexor and extensor tendons around Left toes are intact with normal signal. No mass lesion with abnormal signal is seen in the left foot including the plantar interdigital area. MR/MR foot LT wo con IMPRESSION: 1. No mass lesion with abnormal signal is seen in the left foot including the plantar interdigital area. 2. Findings could represent a ganglion or synovial cyst at medial border of left talonavicular joint, incompletely imaged on the current examination.
== END 2023-11-11 08:06 | disposition home or self-care (01) ==
LOC: HO.MRI 08:05
PROVIDERS: PCP Internal Medicine; Visit Provider Psychiatry & Neurology Neurology
DX: G57.60 Lesion of plantar nerve, unspecified lower limb (principal)
CPT/HCPCS: 73718

== ENCOUNTER → 2023-11-17 15:00 | Outpatient (BNV) | payer MEDICAID, SELFPAY | PROVIDERS: PCP Internal Medicine; Visit Provider Radiology Diagnostic Radiology | DX: R92.1 Mammographic calcification found on diagnostic imaging of breast (principal) | CPT/HCPCS: 77062; 77066 ==

== ENCOUNTER 2023-11-17 15:13 | Outpatient (REF) | payer MEDICAID, SELFPAY ==
--- NOTE | ~2023-11-17 | MM_ITS ---
EXAMINATION: MM DIAGNOSTIC DIGITAL BREAST TOMOSYNTHESIS, BILATERAL CLINICAL INFORMATION: Patient due for bilateral screening. Also, six-month follow-up bilateral somewhat global calcifications, of which the majority layer on 90 degrees mediolateral projections. History of benign stereotactic biopsy upper outer left breast, anterior one third with placement of top hat biopsy clip. COMPARISON: Mammography: 04/30/2023, 10/23/2022, 04/08/2022 (BI-RADS 0). TECHNIQUE: Digital breast tomosynthesis is performed in both the craniocaudal and mediolateral oblique views along with computer-aided detection (CAD). Synthesized 2D images are generated from the tomosynthesis. In addition to standard views, 2-D spot magnification right and left CC views, and right mediolateral views x2 and left mediolateral views x1. FINDINGS: The breasts are heterogeneously dense, which may obscure small masses (ACR BI-RADS breast composition Category c). There is redemonstration of scattered calcifications in both breasts, which are loosely grouped, fine, and predominantly punctate majority appear to layer on the ML projections, especially in the inferior aspect of the right breast, and retroareolar left breast. Findings suggest milk of calcium There is a post benign stereotactic biopsy clip in the upper outer left breast anterior one third. There has been no aggressive change of these calcifications. These calcifications are benign and no further follow-up is recommended. Otherwise, There are no suspicious masses or areas of architectural distortion in either breast. Similar parenchymal asymmetry noted left breast upper outer quadrant, posterior one third, unchanged. The parenchymal pattern of both breasts is stable from prior exams. MM/MM tomosynthesis diagnostic BI IMPRESSION: There are no findings suspicious for malignancy in either breast. There are layering calcifications in both breasts without suspicious grouping or aggressive change, consistent with benign milk of calcium. No further follow-up recommended. Stable asymmetric tissue density upper outer left breast posterior one third without change. This is benign. Stable post benign biopsy clip left breast upper outer quadrant, anterior one third. Recommend the patient return to routine annual screening mammography. ASSESSMENT: BI-RADS BI-RADS 1 - Negative RECOMMENDATION: 1 year F/U Results were provided to the patient at time of visit by the technologist. This patient's information was entered into a reminder system with a target due date for their next mammogram.
== END 2023-11-17 15:14 | disposition home or self-care (01) ==
LOC: HO.MAMMO 15:13
PROVIDERS: PCP Internal Medicine; Visit Provider Internal Medicine
DX: R92.1 Mammographic calcification found on diagnostic imaging of breast (principal)
CPT/HCPCS: 77062; 77066

== ENCOUNTER 2023-12-02 10:46 | Outpatient (REF) | payer MEDICAID, SELFPAY ==
--- NOTE | ~2023-12-02 | US_ITS ---
EXAMINATION: US PELVIS CLINICAL INFORMATION: Follow up left ovarian cyst. COMPARISON: Pelvic ultrasound of September 2023. TECHNIQUE: Ultrasound of the pelvis is performed using both transabdominal and transvaginal transducers along with Doppler. Transvaginal imaging is performed due to inadequate visualization transabdominally. FINDINGS: The uterus measures 9.1 x 6.4 x 6.6 cm. Uterus is heterogeneous and anteverted. Previously identified fibroids are not clearly visualized today, possibly due to uterine heterogeneity and bowel gas. Endometrial thickness is 9 mm. There is no significant free fluid. Right ovary measures 2.4 x 1.2 x 1.2 cm, volume 1.8 mL and is grossly unremarkable, although visualization is limited due to bowel gas. Left ovary measures 2.3 x 1.4 x 1.7 cm, volume 2.9 mL. Previously identified 1.4 x 1.2 x 1.2 cm complex left ovarian cyst is not clearly visualized. 1.0 x 0.6 x 0.7 cm left ovarian cyst is likely physiologic. There is no specific indication for additional imaging at this time. US/US pelvic and transvaginal IMPRESSION: 1. Previously identified 1.4 cm complex left ovarian cyst is not clearly visualized today. 1.0 cm left ovarian cyst is likely physiologic. There is no specific indication for additional imaging at this time. 2. Endometrial thickness is 9 mm. 3. Previously identified fibroids are not clearly visualized today, possibly due to uterine heterogeneity and bowel gas.
== END 2023-12-02 10:47 | disposition home or self-care (01) ==
LOC: HO.US 10:46
PROVIDERS: PCP Internal Medicine; Visit Provider Advanced Practice Midwife
DX: N83.292 Other ovarian cyst, left side (principal)
CPT/HCPCS: 76830; 76856

== ENCOUNTER 2024-01-20 10:52 | Outpatient (AMB) | payer MEDICAID, SELFPAY ==
[2024-01-20 11:07] VITALS: BP 106/66; BMI 31.1
--- NOTE | 2024-01-20 11:07 | A.OFFVIS_ITS ---
Vital Signs 01/20/24 11:07 Height 5 ft 4 in Weight 181 lb BMI 31.1 BP 106/66 Intake Visit Reasons: US follow up Bobbin Winder Tender Required: Yes Bobbin Winder Tender Language: Luxembourgish Bobbin Winder Tender Name: Emil [id number] Electrolysis Operator: Electrolysis Operator Present Allergies aspirin Allergy (Unknown, Verified 01/20/24 11:08) bleeding Is last menstrual period known: Yes Post menopausal: No HPI Comments Details: Patient is here today for a follow up pelvic ultrasound, history of complex ovarian cyst and uterine fibroid, prior history of AUB. History of factor 5 deficiency, history of DVT with the use of Mirena IUD. Skipped menses last month, LMP 01/19/24. Has frequency of urination, yellow/white discharge, mild cramps. [facility] Medical History Complex cyst of left ovary Complex ovarian cyst Chronic ulcer of leg Venous insufficiency Orthostatic hypotension Hx of migraine headaches Depression with anxiety Hypothyroid Ulcer of lower extremity Factor V deficiency Surgical History History of left breast biopsy H/O skin graft Family History Maternal Aunt Stomach cancer Mother Colon cancer Father Factor V deficiency Social History Household Members Other:: lives with 2 daughters Alcohol intake: never Patient Tobacco Use Status: Never used Tobacco Female Reproductive History Menstrual Age of Menarche: 12 control method: none Date of last pap smear: 05/07/21 (negative) Review of Systems Const All systems reviewed & are unremarkable except as noted in HPI and below Endo Reports no additional complaints Physical Exam Vital Signs: Last Vital Signs BP 106/66 01/20/24 11:07 BMI result Body Mass Index 31.1 Const General: cooperative, healthy appearing and no acute distress Other: Patient deferred physician gynecologist exam today due to her menstrual cycle. Psych Appearance: well kempt Attitude: cooperative Thought process: Normal thought process present Results Reviewed Results Reviewed: [address] [address] Ultrasound Report Signed Patient: Shanna Clifford MR#: [id number] : 1975 Acct:[id number] Age/Sex: 48 / F ADM Date: 12/02/23 Loc: HO.US Attending Dr: Shereen Horn CNM Ordering Physician: Shereen Horn CNM Date of Service: 12/02/23 Procedure(s): US pelvic and transvaginal Accession Number(s): [id number] cc: Shauna Martínez MD; Shereen Horn CNM~ EXAMINATION: US PELVIS CLINICAL INFORMATION: Follow up left ovarian cyst. COMPARISON: Pelvic ultrasound of September 2023. TECHNIQUE: Ultrasound of the pelvis is performed using both transabdominal and transvaginal transducers along with Doppler. Transvaginal imaging is performed due to inadequate visualization transabdominally. FINDINGS: The uterus measures 9.1 x 6.4 x 6.6 cm. Uterus is heterogeneous and anteverted. Previously identified fibroids are not clearly visualized today, possibly due to uterine heterogeneity and bowel gas. Endometrial thickness is 9 mm. There is no significant free fluid. Right ovary measures 2.4 x 1.2 x 1.2 cm, volume 1.8 mL and is grossly unremarkable, although visualization is limited due to bowel gas. Left ovary measures 2.3 x 1.4 x 1.7 cm, volume 2.9 mL. Previously identified 1.4 x 1.2 x 1.2 cm complex left ovarian cyst is not clearly visualized. 1.0 x 0.6 x 0.7 cm left ovarian cyst is likely physiologic. There is no specific indication for additional imaging at this time. US/US pelvic and transvaginal IMPRESSION: 1. Previously identified 1.4 cm complex left ovarian cyst is not clearly visualized today. 1.0 cm left ovarian cyst is likely physiologic. There is no specific indication for additional imaging at this time. 2. Endometrial thickness is 9 mm. 3. Previously identified fibroids are not clearly visualized today, possibly due to uterine heterogeneity and bowel gas. Dictated By: Edie Harris MD Signed By: <Electronically signed by Edie Harris MD in OV> 12/07/23 1232 DD/ 1125 TD/TT: Market Research Lead: Assessment & Plan Assessment & Plan (1) Encounter to discuss test results: Code(s): Z71.2 - Person consulting for explanation of examination or test findings Category: Medical (2) Complex cyst of left ovary: Code(s): N83.292 - Other ovarian cyst, left side Category: Medical (3) Frequency of urination: Code(s): R35.0 - Frequency of micturition (4) Vaginal discharge: Code(s): N89.8 - Other specified noninflammatory disorders of vagina Plan Discussed: Ultrasound findings with limitations due the gas/bowel. History of complex ovarian cyst left side, plan MRI. Urine orders sent to the lab reviewed instructions on registration with patient. Patient deferred physical exam until next visit due to menstrual bleeding. All of her questions and concerns were addressed to the best of my ability and shared decision making. She is agreeable to the plan of care. This note is constructed using voice recognition software. While every effort has been made to ensure accuracy, multiple pressure riveter operator errors may have been included. Orders: Orders MR pelvis wo/w con Today N83.299 - Other ovarian cyst, unspecified side UA CC w/rflx Micro + Cult Today R35.0 - Frequency of micturition Coding Level of Care Code Est Pt Level 3 (06575) Diagnoses Encounter to discuss test results Z71.2 Complex cyst of left ovary N83.292 Frequency of urination R35.0 Vaginal discharge N89.8
== END 2024-01-20 11:36 | disposition home or self-care (01) ==
LOC: HO.HWS 10:52
PROVIDERS: PCP Internal Medicine; Visit Provider Advanced Practice Midwife
DX: Z71.2 Person consulting for explanation of examination or test findings (principal); N83.292 Other ovarian cyst, left side; R35.0 Frequency of micturition; N89.8 Other specified noninflammatory disorders of vagina
CPT/HCPCS: 99213

== ENCOUNTER → 2024-01-20 10:52 | Outpatient (BNVA) | payer MEDICAID, SELFPAY | PROVIDERS: PCP Internal Medicine; Visit Provider Advanced Practice Midwife | DX: R35.0 Frequency of micturition (principal); N83.292 Other ovarian cyst, left side; N89.8 Other specified noninflammatory disorders of vagina; Z71.2 Person consulting for explanation of examination or test findings | CPT/HCPCS: 99212 ==

== ENCOUNTER 2024-02-11 14:55 | Emergency (ER) | payer MEDICAID, SELFPAY ==
--- NOTE | ~2024-02-11 | XR_ITS ---
EXAMINATION: XR CHEST 2 VIEWS CLINICAL INFORMATION: Chest pain. COMPARISON: Chest radiographs dated 09/17/2022. TECHNIQUE: Frontal and lateral views of the chest were obtained. FINDINGS: The heart, great vessels, pulmonary vasculature and mediastinum are normal. The lungs show no focal infiltrate, effusion or pneumothorax. There is mild elevation of the right hemidiaphragm. There is no acute osseous abnormality. XR/XR chest 2V IMPRESSION: No active cardiopulmonary disease.
--- NOTE | 2024-02-11 15:13 | ECG_ITS ---
Test Reason : CHEST PAIN Blood Pressure : / mmHG Vent. Rate : 097 BPM Atrial Rate : 097 BPM P-R Int : 136 ms QRS Dur : 088 ms QT Int : 334 ms P-R-T Axes : 030 -05 017 degrees QTc Int : 424 ms Sinus rhythm with Premature ventricular complexes or Fusion complexes Otherwise normal ECG No previous ECGs available Referred By: Lorelei Cunha Electronically Signed By:LUCIO CABALLERO MD
[2024-02-11 15:31] VITALS: BP 95/61; PULSE 96; RESP 19; TEMP 37.4; O2SAT 99; BMI 30.4
--- NOTE | 2024-02-11 15:31 | ED.GENADULT ---
HPI - General Adult General Chief complaint: General Medical Stated complaint: Low BP, lightheaded Related Data Home Medications ?Medication ?Instructions ?Recorded ?Confirmed ergocalciferol (vitamin D2) 1,250 1,250 mcg PO QWEEK 05/06/21 12/15/22 mcg (50,000 unit) capsule midodrine 5 mg tablet 5 mg PO TID 05/06/21 08/12/22 mirtazapine 15 mg tablet 15 mg PO BEDTIME 05/06/21 12/15/22 quetiapine 200 mg tablet 200 mg PO BEDTIME 05/06/21 12/15/22 sertraline 100 mg tablet 200 mg PO BEDTIME 05/06/21 12/15/22 topiramate 200 mg tablet 200 mg PO BEDTIME 05/06/21 12/15/22 enoxaparin 120 mg/0.8 mL 120 mg subcut DAILY 03/19/22 12/15/22 subcutaneous syringe (Lovenox) buspirone 15 mg tablet 15 mg PO BID 12/15/22 12/15/22 clopidogrel 75 mg tablet 75 mg PO DAILY 12/15/22 12/15/22 pantoprazole 20 mg tablet,delayed 20 mg PO BID 12/15/22 12/15/22 release sumatriptan succinate 100 mg tablet 100 mg PO Q2-4H 12/15/22 12/15/22 levothyroxine 88 mcg tablet 88 mcg PO QAM 04/06/23 loratadine 10 mg tablet 10 mg PO QAM 04/06/23 furosemide 20 mg tablet 20 mg PO DAILY 05/29/23 amitriptyline 10 mg tablet 10 mg PO BEDTIME 01/20/24 bupropion HCl 300 mg 24 hr tablet, 300 mg PO QAM 01/20/24 extended release cholecalciferol (vitamin D3) 50 50 mcg PO QAM 01/20/24 mcg (2,000 unit) capsule gabapentin 400 mg capsule 400 mg PO BEDTIME 01/20/24 Previous Rx's ?Medication ?Instructions ?Recorded simethicone 125 mg chewable tablet 125 mg PO TID-QID PRN abdominal 03/19/22 (Gas Relief (simethicone)) distention #90 tabs arm brace (JENNIFER Elbow Brace) #1 ea 05/29/23 Allergies Allergy/AdvReac Type Severity Reaction Status Date / Time aspirin Allergy Unknown bleeding Verified 02/11/24 15:36 [facility] Past Medical History Medical History Complex cyst of left ovary Complex ovarian cyst Chronic ulcer of leg Venous insufficiency Orthostatic hypotension Hx of migraine headaches Depression with anxiety Hypothyroid Ulcer of lower extremity Factor V deficiency Surgical History History of left breast biopsy H/O skin graft Family History Family History Maternal Aunt Stomach cancer Mother Colon cancer Father Factor V deficiency Social History Social History Household Members Other:: lives with 2 daughters Alcohol intake: never Patient Tobacco Use Status: Never used Tobacco Advance Directives: No Advance Directives Information Provided: No Do you have a plan to hurt others: No Plan Physical Exam ED Vital Signs: Vital Signs - 24 hr 02/11/24 15:31 Temperature 99.4 F Pulse Rate 96 Respiratory Rate 19 Blood Pressure 95/61 Pulse Oximetry 99 Oxygen Delivery Method Room Air BMI result Body Mass Index 30.4 Course Course Course Narrative: This is a Rapid Medical Examination (RME) performed by Terra Cunha PA-C in triage. Full HPI, ROS, assessment and treatment plan per primary provider in the Main ED. 48 yo female hx of factor 5 leiden, hypothyroid and migraines presents to the ED w/ subjective fevers, chills, myalgias, generalized weakness x24 hours. denies known sick contacts. thyroid levels were checked by PCP 2 months ago and were wnl. takes medication as prescribed. While checking into ED, began to have chest pain w/ radiation to right shoulder. denies sob. temp 99.4F in triage. 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 generally well appearing. lungs cta b/l. rrr. Plan: labs, trop, ekg, cxr, viral serology, TSH ordered Reevaluation(s) Reevaluation #1: Patient left the ED without completing treatment. Medical Decision Making Lab Data 02/11/24 15:51 02/11/24 15:51 Labs: Lab Results 02/11/24 Range/Units 15:51 WBC 11.8 H (4.8-10.8) X10*3/uL RBC 5.52 H (4.20-5.50) X10*6/uL Hgb 15.2 (12.0-16.0) g/dl Hct 45.9 (37.0-47.0) % MCV 83.2 (80.0-98.0) fL MCH 27.5 (27.0-33.0) pg MCHC 33.1 (31.0-35.0) g/dl RDW 15.5 (11.0-16.0) % Plt Count 247 (160-400) X10*3/uL MPV 10.2 (9.4-12.3) fL Immature Gran % (Auto) 0.5 H (0.0-0.4) % Neut % (Auto) 89.4 H (45-73) % Lymph % (Auto) 6.3 L (20-40) % [place] % (Auto) 3.6 (2-11) % Eos % (Auto) 0.0 (0-4) % Baso % (Auto) 0.2 (0-2) % Lymph # (Auto) 0.7 L (1.2-4.9) X10*3/uL [place] # (Auto) 0.4 (0.1-1.2) X10*3/uL Eos # (Auto) 0.0 (0.0-0.4) X10*3/uL Baso # (Auto) 0.0 (0.0-0.2) X10*3/uL Abs Immat Gran (auto) 0.06 H (0.00-0.03) X10*3/uL Absolute Neuts (auto) 10.6 H (2.0-8.3) x10*3/uL Absolute Nucleated RBC 0.000 (0.0-0.012) X10*3/uL Nucleated RBC % (auto) 0.0 (0.0-0.2) /100WBC PT 14.1 H (11.1-13.3) SEC INR 1.2 H (0.9-1.1) Sodium 138 (135-145) mmol/L Potassium 3.6 (3.3-5.1) mmol/L Chloride 105 (96-108) mmol/L Carbon Dioxide 25 (22-29) mmol/L Anion Gap 12 (12-20) BUN 8 L (9-16) mg/dL Creatinine 0.64 (0.5-1.4) mg/dL Estim Creat Clear Calc 111.4 Estimated GFR > 60 Random Glucose 97 (60-115) mg/dL Calcium 9.4 (8.4-10.2) mg/dL Magnesium 2.0 (1.6-2.6) mg/dL Total Bilirubin 0.5 (0.0-1.0) mg/dL AST 16 (5-31) U/L ALT 11 (0-31) U/L Alkaline Phosphatase 78 (39-117) U/L Total Creatine Kinase 113 (26-140) U/L Troponin I High Sens < 2.7 (<3.5-17.0) ng/L Total Protein 7.6 (6.5-8.0) g/dL Albumin 4.3 (3.5-5.0) g/dL Lipase 17 (8-78) U/L TSH 0.53 (0.32-4.0) uIU/mL Beta HCG, Quant < 2 mIU/mL Influenza Type A (PCR) NEGATIVE (Negative) Influenza Type B (PCR) NEGATIVE (Negative) RSV RNA Qual (PCR) NEGATIVE (Negative) SARS-CoV-2 RNA (RT-PCR) NEGATIVE (Negative) Discharge Plan Discharge Clinical Impression: Light headedness Patient Disposition: Left W/O Completing Treatment Prescriptions: No Action ergocalciferol (vitamin D2) 1,250 mcg (50,000 unit) capsule 1,250 mcg PO QWEEK mirtazapine 15 mg tablet 15 mg PO BEDTIME topiramate 200 mg tablet 200 mg PO BEDTIME quetiapine 200 mg tablet 200 mg PO BEDTIME midodrine 5 mg tablet 5 mg PO TID sertraline 100 mg tablet 200 mg PO BEDTIME sumatriptan succinate 100 mg tablet 100 mg PO Q2-4H enoxaparin [Lovenox] 120 mg/0.8 mL syringe 120 mg subcut DAILY simethicone [Gas Relief (simethicone)] 125 mg tablet,chewable 125 mg PO TID-QID PRN (Reason: abdominal distention) Qty: 90 2RF pantoprazole 20 mg tablet,delayed release (DR/EC) 20 mg PO BID buspirone 15 mg tablet 15 mg PO BID clopidogrel 75 mg tablet 75 mg PO DAILY loratadine 10 mg tablet 10 mg PO QAM levothyroxine 88 mcg tablet 88 mcg PO QAM furosemide 20 mg tablet 20 mg PO DAILY (DME) JENNIFER Elbow Brace Misc See Rx Instructions .Route Qty: 1 0RF Rx Instructions: As directed amitriptyline 10 mg tablet 10 mg PO BEDTIME bupropion HCl 300 mg tablet extended release 24 hr 300 mg PO QAM gabapentin 400 mg capsule 400 mg PO BEDTIME cholecalciferol (vitamin D3) 50 mcg (2,000 unit) capsule 50 mcg PO QAM Discharge Date/Time: 02/11/24 20:49
[2024-02-11 15:58] LABS: MANUAL DIFF FLAG NO
[2024-02-11 15:59] LABS: Basophils Percent Auto 0.2 % (0-2); Hematocrit 45.9 % (37.0-47.0); Hemoglobin 15.2 g/dl (12.0-16.0); Imm Gran Abs Auto 0.06 X10*3/uL (0.00-0.03); Imm Gran Pct Auto 0.5 % (0.0-0.4); Lymphocytes Absolute Auto 0.7 X10*3/uL (1.2-4.9); Lymphocytes Percent Auto 6.3 % (20-40); Mean Corpuscular HGB Conc 33.1 g/dl (31.0-35.0); Mean Corpuscular Hemoglobin 27.5 pg (27.0-33.0); Mean Corpuscular Volume 83.2 fL (80.0-98.0); Mean Platelet Volume 10.2 fL (9.4-12.3); Monocytes Absolute Auto 0.4 X10*3/uL (0.1-1.2); Monocytes Percent Auto 3.6 % (2-11); Neutrophils Absolute Auto 10.6 x10*3/uL (2.0-8.3); Neutrophils Percent Auto 89.4 % (45-73); Platelet Count 247 X10*3/uL (160-400); Red Blood Count 5.52 X10*6/uL (4.20-5.50); Red Cell Distribution Width 15.5 % (11.0-16.0); White Blood Count 11.8 X10*3/uL (4.8-10.8)
[2024-02-11 16:07] LABS: INTERNATIONAL NORM RATIO 1.2 (0.9-1.1); Prothrombin Time 14.1 SEC (11.1-13.3)
[2024-02-11 16:20] LABS: Alanine Aminotransferase 11 U/L (0-31); Albumin Level 4.3 g/dL (3.5-5.0); Alkaline Phosphatase 78 U/L (39-117); Anion Gap 12 (12-20); Aspartate Amino Transferase 16 U/L (5-31); Bilirubin Total 0.5 mg/dL (0.0-1.0); Blood Urea Nitrogen 8 mg/dL (9-16); Calcium 9.4 mg/dL (8.4-10.2); Carbon Dioxide 25 mmol/L (22-29); Chloride 105 mmol/L (96-108); Creatinine Clr Calc Pharmacy 111.4; Estimated Glomerular Filt Rate > 60; Glucose Random 97 mg/dL (60-115); HCG Quantitative < 2 mIU/mL; Lipase 17 U/L (8-78); Potassium 3.6 mmol/L (3.3-5.1); Sodium 138 mmol/L (135-145); Total Protein 7.6 g/dL (6.5-8.0); Troponin-I High Sensitivity < 2.7 ng/L (<3.5-17.0)
[2024-02-11 16:34] LABS: TSH reflex Free T4 0.53 uIU/mL (0.32-4.0)
[2024-02-11 16:41] LABS: Influenza A PCR NEGATIVE (Negative); Influenza B PCR NEGATIVE (Negative); Resp Syncy Virus RNA Qual PCR NEGATIVE (Negative); SARS COV2 PCR INHOUSE NEGATIVE (Negative)
--- NOTE | 2024-02-11 20:48 | PC.NURSE ---
Called in WR. Per comments on chart pt left at [phone]
== END 2024-02-11 20:49 | disposition left against medical advice (07) ==
PROVIDERS: Physician Assistant Medical; Emergency Provider Emergency Medicine; PCP Internal Medicine
DX: R07.89 Other chest pain (principal); R42 Dizziness and giddiness; R03.1 Nonspecific low blood-pressure reading; Z20.822 Contact with and (suspected) exposure to COVID-19; Z79.899 Other long term (current) drug therapy
CPT/HCPCS: 0241U; 36415; 71046; 80053; 82550; 83690; 83735; 84443; 84484; 84702; 85025; 85610; 93005; 99283

== ENCOUNTER → 2024-02-11 15:13 | Outpatient (BNV) | payer MEDICAID, SELFPAY | PROVIDERS: Emergency Provider Emergency Medicine; PCP Internal Medicine; Visit Provider Internal Medicine Cardiovascular Disease | DX: R07.9 Chest pain, unspecified (principal) | CPT/HCPCS: 93010 ==

== ENCOUNTER 2024-02-17 14:49 | Outpatient (REF) | payer MEDICAID, SELFPAY | END 2024-02-17 14:50 | disposition home or self-care (01) | LOC: HO.MRI 14:49 | PROVIDERS: PCP Internal Medicine; Visit Provider Advanced Practice Midwife | DX: Z13.89 Encounter for screening for other disorder (principal) ==

== ENCOUNTER 2024-03-01 14:05 | Outpatient (REF) | payer MEDICAID, SELFPAY ==
--- NOTE | ~2024-03-01 | MR_ITS ---
EXAMINATION: MRI PELVIS WITHOUT CONTRAST CLINICAL INFORMATION: Ovarian cyst. COMPARISON: Pelvic ultrasound 12/02/2023 and 09/14/2023. TECHNIQUE: Multiple routine MRI sequences through the pelvis were obtained on a high-field 1.5 Brina MRI without IV contrast. FINDINGS: UTERUS: Anteverted retroflexed uterus has a normal configuration. Normal endometrial thickness, 0.8 cm. There is a well-defined, homogeneously T2 hypointense lesion in the posterior upper uterine myometrium measuring 1.2 cm (4:10) most consistent with a fibroid. Postoperative changes in the anteroinferior uterus from prior . The junctional zone this thickened measuring up to 1.7 cm. CERVIX: Normal. VAGINA: Normal; no mass seen. OVARIES: Simple-appearing dominant follicle in the left ovary measuring 1.4 cm. No suspicious ovarian or adnexal lesion. KIDNEYS: Two normally positioned kidneys are seen. No hydronephrosis. BLADDER: Urinary bladder normal. PELVIC FREE FLUID: Trace amount of free fluid in the cul-de-sac, most likely physiologic. LYMPH NODES: No pathologically enlarged lymph nodes. OSSEOUS STRUCTURES: No acute or suspicious osseous abnormalities. ADDITIONAL FINDINGS: Multiple nodularities overlying the subcutaneous soft tissues of the gluteal region suggesting injection sites. MR/MR pelvis wo con IMPRESSION: 1. No suspicious ovarian or adnexal lesion. 2. Thickening of the junctional zone of the uterus which can be seen in the setting of adenomyosis. 3. Intramural posterior upper uterine fibroids measuring 1.2 cm.
== END 2024-03-01 14:06 | disposition home or self-care (01) ==
LOC: HO.MRI 14:05
PROVIDERS: PCP Internal Medicine; Visit Provider Advanced Practice Midwife
DX: N83.299 Other ovarian cyst, unspecified side (principal)
CPT/HCPCS: 72195

== ENCOUNTER → 2024-03-17 12:48 | Outpatient (BNVA) | payer MEDICAID, SELFPAY | PROVIDERS: PCP Internal Medicine; Visit Provider Advanced Practice Midwife ==

== ENCOUNTER 2024-03-24 11:13 | Outpatient (AMB) | payer MEDICAID, SELFPAY ==
--- NOTE | 2024-03-24 11:13 | MHC.OFFVIS ---
Intake Visit Reasons: MRI results Intake Note: cell # [phone] Supervisory Aide: Supervisory Aide Present Allergies aspirin Allergy (Unknown, Verified 03/24/24 11:14) bleeding Is last menstrual period known: Yes HPI Comments Details: [facility] visit 11:32-11:41. I spent 9 minutes speaking with the patient on the phone plus an additional 5 minutes reviewing the chart and 5 minutes updating the medical record for a total of 19minutes. Patient presents via phone to discuss: MRI findings, history of pelvic pain and complex ovarian cyst. She reports she bled recently, 3 different episodes during 1 month cycle. [facility] Medical History (Updated 03/24/24 @ 11:47 by Shereen Horn CNM) Fibroid Chronic ulcer of leg Venous insufficiency Orthostatic hypotension Hx of migraine headaches Depression with anxiety Hypothyroid Ulcer of lower extremity Factor V deficiency Surgical History History of left breast biopsy H/O skin graft Family History Maternal Aunt Stomach cancer Mother Colon cancer Father Factor V deficiency Social History Household Members Other:: lives with 2 daughters Alcohol intake: never Patient Tobacco Use Status: Never used Tobacco Female Reproductive History Menstrual Age of Menarche: 12 Review of Systems Const All systems reviewed & are unremarkable except as noted in HPI and below Endo Reports no additional complaints Physical Exam Const General: cooperative, healthy appearing and no acute distress Psych Appearance: well kempt Attitude: cooperative Thought process: Normal thought process present Telehealth Telehealth Telehealth Platform: Adjug Location of provider rendering services: practice address Location of patient: address on file Telehealth method: video Patient verbally consented to treatment: Yes Patient verbally consented to billing insurance company: Yes Patient informed of any privacy concerns related to visit: Yes Results Reviewed Results Reviewed: [address] [address] Magnetic Resonance Report Signed Patient: Shanna Clifford MR#: [id number] : 1975 Acct:[id number] Age/Sex: 48 / F ADM Date: 03/01/24 Loc: HO.MRI Attending Dr: Shereen Horn CNM Ordering Physician: Shereen Horn CNM Date of Service: 03/01/24 Procedure(s): MR pelvis wo con Accession Number(s): [id number] cc: Shauna Martínez MD; Shereen Horn CNM~ EXAMINATION: MRI PELVIS WITHOUT CONTRAST CLINICAL INFORMATION: Ovarian cyst. COMPARISON: Pelvic ultrasound 12/02/2023 and 09/14/2023. TECHNIQUE: Multiple routine MRI sequences through the pelvis were obtained on a high-field 1.5 Brina MRI without IV contrast. FINDINGS: UTERUS: Anteverted retroflexed uterus has a normal configuration. Normal endometrial thickness, 0.8 cm. There is a well-defined, homogeneously T2 hypointense lesion in the posterior upper uterine myometrium measuring 1.2 cm (4:10) most consistent with a fibroid. Postoperative changes in the anteroinferior uterus from prior . The junctional zone this thickened measuring up to 1.7 cm. CERVIX: Normal. VAGINA: Normal; no mass seen. OVARIES: Simple-appearing dominant follicle in the left ovary measuring 1.4 cm. No suspicious ovarian or adnexal lesion. KIDNEYS: Two normally positioned kidneys are seen. No hydronephrosis. BLADDER: Urinary bladder normal. PELVIC FREE FLUID: Trace amount of free fluid in the cul-de-sac, most likely physiologic. LYMPH NODES: No pathologically enlarged lymph nodes. OSSEOUS STRUCTURES: No acute or suspicious osseous abnormalities. ADDITIONAL FINDINGS: Multiple nodularities overlying the subcutaneous soft tissues of the gluteal region suggesting injection sites. MR/MR pelvis wo con IMPRESSION: 1. No suspicious ovarian or adnexal lesion. 2. Thickening of the junctional zone of the uterus which can be seen in the setting of adenomyosis. 3. Intramural posterior upper uterine fibroids measuring 1.2 cm. Dictated By: Letty Smith Signed By: <Electronically signed by Letty Smith in OV> 03/18/24 0908 DD/ 1450 TD/TT: Financial Aid Manager: Assessment & Plan Assessment & Plan (1) Encounter to discuss test results: Code(s): Z71.2 - Person consulting for explanation of examination or test findings Category: Medical (2) Abnormal uterine bleeding (AUB): Code(s): N93.9 - Abnormal uterine and vaginal bleeding, unspecified Category: Medical (3) Fibroid: Code(s): D21.9 - Benign neoplasm of connective and other soft tissue, unspecified Category: Medical Plan Discussed: MRI results left complex ovarian cyst has resolved small simple cyst remains. Fibroid present will monitor annually for stability. Current AUB pattern. Prior EMB w/normal results. Consider treatment plan possibly include a Mirena IUD or uterine ablation. She is very undecided and wants to think about things. She has a follow up with her primary care to review her labs, and discussed other symptoms such as diarrhea that she is experiencing. Monitor menstrual cycles, report any unscheduled bleeding, bleeding episodes <24 days apart or heavy/prolonged menstrual bleeding. Call the office for a follow up for any concerns. Referral to [facility] for a female provider to discuss options for AUB treatment. All of her questions and concerns were addressed to the best of my ability and shared decision making. She is agreeable to the plan of care. She has her annual exam scheduled for February of 2025. This note is constructed using voice recognition software. While every effort has been made to ensure accuracy, cripple chaser errors may have been included. Orders: Referrals DISPATCHER SERVICE CHIEF Referral N93.9 - Abnormal uterine and vaginal bleeding, unspecified Coding Level of Care Code Tele Est Pt Level 3 (65072) Diagnoses Encounter to discuss test results Z71.2 Abnormal uterine bleeding (AUB) N93.9 Fibroid D21.9
== END 2024-03-24 12:58 | disposition home or self-care (01) ==
LOC: HO.HWSW 11:13
PROVIDERS: PCP Internal Medicine; Visit Provider Advanced Practice Midwife
DX: Z71.2 Person consulting for explanation of examination or test findings (principal); N93.9 Abnormal uterine and vaginal bleeding, unspecified; D21.9 Benign neoplasm of connective and other soft tissue, unspecified
CPT/HCPCS: 99213

== ENCOUNTER → 2024-03-24 11:13 | Outpatient (BNVA) | payer MEDICAID, SELFPAY | PROVIDERS: PCP Internal Medicine; Visit Provider Advanced Practice Midwife ==

== ENCOUNTER 2024-04-12 11:01 | Outpatient (AMB) | payer MEDICAID, SELFPAY ==
--- NOTE | 2024-04-12 11:03 | MHC.OFFVIS ---
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 She tries to eat healthy and stays active with exercise-walks. Regular cycles, skipped in January, February three times. Referred to [facility], seen last week, was told to try IUD again. Follow up appt. to be scheduled, she reports her manager audit agreed with the plan. Notes of consult not available at the visit today. Patient reports they did not have her biopsy results at her visit. Confirm with staff was sent over incomplete records prior to her visit. Currently is not sexually active. She denies vaginal itching and irritation. Denies family history of breast or ovarian cancer. Last pap smear 2020, negative. Mammogram: 2023. [facility], [facility] Medical History Fibroid Chronic ulcer of leg Venous insufficiency Orthostatic hypotension Hx of migraine headaches Depression with anxiety Hypothyroid Ulcer of lower extremity Factor V deficiency Surgical History History of left breast biopsy H/O skin graft Family History Maternal Aunt Stomach cancer Mother Colon cancer Father Factor V deficiency Social History Household Members Other:: lives with 2 daughters Alcohol intake: never Patient Tobacco Use Status: Never used Tobacco Female Reproductive History Menstrual Age of Menarche: 12 Duration of menses: 8-10 days Date of last menstrual period: 03/08/24 Total pregnancies: 3 Full term: 3 Number of Living Children: 3 Multiple births: 1 Date of last pap smear: 05/06/21 (neg pap and hpv) Date of Mammogram: 11/17/23 (Birad 1) Review of Systems Const All systems reviewed & are unremarkable except as noted in HPI and below Reports as per HPI Eyes Reports no additional complaints ENT Reports no additional complaints Card Reports no additional complaints Resp Reports no additional complaints GI Reports as per HPI and Reports no additional complaints Reports as per HPI Musc Reports no additional complaints Skin/Breast Reports as per HPI Neuro Reports no additional complaints Psych Reports no additional complaints Endo Reports no additional complaints Marek/Lymph Reports no additional complaints Aller/Immun Reports no additional complaints Physical Exam Vital Signs: Last Vital Signs BP 100/62 04/12/24 11:04 BMI result Body Mass Index 30.4 Const General: cooperative, healthy appearing, no acute distress, well developed and alert Orientation/consciousness: patient oriented x3 HEENT Head: Yes normal to inspection Eyes General: appearance normal, both eyes and all related structures Neck Neck: Yes normal visual inspection Thyroid: Thyroid normal Chest Chest palpation & inspection: normal inspection of the chest and other (no puckering, dimpling, peau de orange, retraction, discharge, masses) Breast/axilla inspection: normal inspection of the breasts Breast/axilla palpation: normal palpation of the breasts Resp Effort & Inspection: normal respiratory effort GI Inspection: Yes normal to inspection Palpation (GI): Soft to palpation Rectal Exam - Female: deferred General: Yes bladder normal to palpation External Female Exam: normal external appearance and normal appearance of the urethra Speculum Exam - Vagina: normal appearance of the vagina, normal palpation and normal vaginal discharge Speculum Exam - Cervix: normal appearance of the cervix and normal palpation Bimanual exam- vagina & uterus: normal bimanual exam, normal palpation, uterine size normal, bladder normal to palpation, normal palpation and non-tender Bimanual Exam- Adnexa, other: no masses Skin General skin exam: no rashes or lesions noted Rashes: no rashes Neuro General: patient oriented x3 Cognition (Neuro): normal cognition Extrem General: Yes normal to inspection Psych Attitude: cooperative Thought process: Normal thought process present Assessment & Plan Assessment & Plan (1) Encounter for well woman exam with routine gynecological exam: Code(s): Z01.419 - Encounter for gynecological examination (general) (routine) without abnormal findings Category: Medical Plan: Discussed: Current recommendations for pap smears per ASCCP guidelines. Breast awareness and periodic breast exams. Maintain a healthy lifestyle including a well balanced diet and routine exercise. Copies of her medical record given to her personally today to take at her follow up visit. Plan to send for records if they do not arrive soon. Mammogram yearly. Patient verbalizes understanding and agrees to the plan of care. She was given opportunity to ask questions and all questions were answered to the best of my ability. RTO in one year for annual forensic document examiner examination. This note is constructed using voice recognition software. While every effort has been made to ensure accuracy, head swamper errors may have been included. Coding Level of Care Code Est Pt Prev Care 40-64y(33897) Diagnoses Encounter for well woman exam with routine gynecological exam Z01.419
[2024-04-12 11:04] VITALS: BP 100/62; BMI 30.4
== END 2024-04-12 11:38 | disposition home or self-care (01) ==
LOC: HO.HWS 11:01
PROVIDERS: PCP Internal Medicine; Visit Provider Advanced Practice Midwife
DX: Z01.419 Encounter for gynecological examination (general) (routine) without abnormal findings (principal)
CPT/HCPCS: 99396

== ENCOUNTER → 2024-04-12 11:01 | Outpatient (BNVA) | payer MEDICAID, SELFPAY | PROVIDERS: PCP Internal Medicine; Visit Provider Advanced Practice Midwife | DX: Z01.419 Encounter for gynecological examination (general) (routine) without abnormal findings (principal) | CPT/HCPCS: 99396 ==

== ENCOUNTER 2024-06-08 16:10 | Outpatient (REF) | payer MEDICAID, SELFPAY ==
[2024-06-08 18:32] LABS: Appearance Urine Clear; Color Urine Yellow; Glucose Urine UA Negative (Negative); Leukocyte Esterase Urine Negative (Negative); Nitrite Urine Negative (Negative); PH 6.5 (5.0-9.0); UMIC TRIGGER UACC YES; Urine Blood Small (1+) (Negative); Urine Ketones Negative (Negative); Urine Protein Negative (Neg-Trace)
[2024-06-08 18:46] LABS: Alanine Aminotransferase 17 U/L (0-31); Albumin Level 4.4 g/dL (3.5-5.0); Alkaline Phosphatase 67 U/L (39-117); Aspartate Amino Transferase 20 U/L (5-31); Bilirubin Direct 0.1 mg/dL (0.0-0.5); Bilirubin Total 0.3 mg/dL (0.0-1.0); Total Protein 7.4 g/dL (6.5-8.0)
[2024-06-08 18:52] LABS: Bacteria Urine None Seen (None Seen); Hyaline Casts Urine 0-2 /LPF (0-2); RBC Urine 0-2 /HPF (0-2); Squamous Epithelial Cell Urine 0-2 /HPF (0-2); WBC Urine 0-5 /HPF (0-5)
[2024-06-08 19:00] LABS: TSH reflex Free T4 1.82 uIU/mL (0.32-4.0)
== END 2024-06-08 16:11 | disposition home or self-care (01) ==
LOC: HO.CHCLDS 16:10
PROVIDERS: Advanced Practice Midwife; Visit Provider Internal Medicine
DX: R53.82 Chronic fatigue, unspecified (principal); E03.9 Hypothyroidism, unspecified
CPT/HCPCS: 36415; 80076; 81001; 84443

== ENCOUNTER 2024-07-06 11:15 | Outpatient (REF) | payer MEDICAID, SELFPAY ==
[2024-07-06 11:47] LABS: MANUAL DIFF FLAG NO
[2024-07-06 12:21] LABS: Basophils Percent Auto 0.7 % (0-2); Eosinophils Percent Auto 0.9 % (0-4); Hematocrit 42.9 % (37.0-47.0); Hemoglobin 14.2 g/dl (12.0-16.0); Imm Gran Abs Auto 0.01 X10*3/uL (0.00-0.03); Imm Gran Pct Auto 0.2 % (0.0-0.4); Lymphocytes Absolute Auto 1.5 X10*3/uL (1.2-4.9); Lymphocytes Percent Auto 35.1 % (20-40); Mean Corpuscular HGB Conc 33.1 g/dl (31.0-35.0); Mean Corpuscular Hemoglobin 27.3 pg (27.0-33.0); Mean Corpuscular Volume 82.5 fL (80.0-98.0); Mean Platelet Volume 10.8 fL (9.4-12.3); Monocytes Absolute Auto 0.3 X10*3/uL (0.1-1.2); Monocytes Percent Auto 6.4 % (2-11); Neutrophils Absolute Auto 2.5 x10*3/uL (2.0-8.3); Neutrophils Percent Auto 56.7 % (45-73); Platelet Count 286 X10*3/uL (160-400); Red Cell Distribution Width 14.1 % (11.0-16.0); White Blood Count 4.4 X10*3/uL (4.8-10.8)
[2024-07-06 12:49] LABS: Alanine Aminotransferase 17 U/L (0-31); Albumin Level 4.2 g/dL (3.5-5.0); Alkaline Phosphatase 75 U/L (39-117); Anion Gap 11 (12-20); Aspartate Amino Transferase 22 U/L (5-31); Bilirubin Total 0.4 mg/dL (0.0-1.0); Blood Urea Nitrogen 16 mg/dL (9-16); Calcium 8.7 mg/dL (8.4-10.2); Carbon Dioxide 27 mmol/L (22-29); Chloride 108 mmol/L (96-108); Estimated Glomerular Filt Rate > 60; Glucose Random 98 mg/dL (60-115); Potassium 3.6 mmol/L (3.3-5.1); Sodium 142 mmol/L (135-145); Total Protein 7.1 g/dL (6.5-8.0)
[2024-07-06 16:24] LABS: Adenovirus F 40/41 Not Detected (Not Detect.); Astrovirus Not Detected (Not Detect.); Campylobacter Not Detected (Not Detect.); Cryptosporidium Not Detected (Not Detect.); Cyclospora cayetanensis Not Detected (Not Detect.); E. coli EAEC Not Detected (Not Detect.); E. coli EPEC Not Detected (Not Detect.); E. coli ETEC Not Detected (Not Detect.); E. coli STEC Not Detected (Not Detect.); Entamoeba histolytica Not Detected (Not Detect.); Giardia lamblia Not Detected (Not Detect.); Plesiomonas shigelloides Not Detected (Not Detect.); Rotavirus A Not Detected (Not Detect.); Salmonella Not Detected (Not Detect.); Sapovirus Not Detected (Not Detect.); Shigella sp./EIEC Not Detected (Not Detect.); Vibrio Not Detected (Not Detect.); Vibrio Cholerae Not Detected (Not Detect.); Yersinia enterocolitica Not Detected (Not Detect.)
[2024-07-07 08:31] LABS: HIV AB/AG Nonreactive (Nonreactive); HIV Num 1 0.05 S/CO (0.00-0.99); Hepatitis B Surface Antigen Negative (Negative); ~HepC Num1 0.15 S/CO (0.00-0.79); ~Hepatitis C Antibody Nonreactive (Nonreactive)
[2024-07-07 08:43] LABS: Syphilis Screen Nonreactive (Nonreactive)
[2024-07-08 12:17] LABS: Norovirus Stool PCR NOT DETECTED
== END 2024-07-06 11:16 | disposition home or self-care (01) ==
LOC: HO.LAB 11:15
PROVIDERS: PCP Internal Medicine; Visit Provider Internal Medicine Infectious Disease
DX: K58.9 Irritable bowel syndrome, unspecified (principal); A01.00 Typhoid fever, unspecified
CPT/HCPCS: 36415; 80053; 85025; 86780; 86803; 87040; 87177; 87209; 87329; 87338; 87340; 87389; 87507

== ENCOUNTER → 2024-10-12 13:00 | Outpatient (BNVA) | payer MEDICAID, SELFPAY | PROVIDERS: PCP Internal Medicine; Visit Provider Advanced Practice Midwife | DX: Z30.431 Encounter for routine checking of intrauterine contraceptive device (principal); R10.2 Pelvic and perineal pain | CPT/HCPCS: 81003; 81025; 99212 ==

== ENCOUNTER 2024-11-23 10:53 | Outpatient (REF) | payer MEDICAID, SELFPAY ==
--- OUTSIDE RECORDS SUMMARY | 2024-11-23 13:06 | XMS_ITS | Encounter Summary ---
Author Organization [facility] Address [address] [place] [address] Care Team Providers Care Picker Machine Operator Name Role Phone Dana Hendrix PA-C Primary Care Provider [phone] Encounter Details Date Type Department Care Team (Late st Contact Info) Description 10/09/2015 Interim Notes [address] [phone] Deidre Charles, COUNSELOR [address] [place] [address] Social History Tobacco Use Types Packs/Day Years Used Date Smoking Tobacco: Never Alcohol Use Standard Drinks/Week Comments No 0 (1 standard drink = 0.6 oz pur e alcohol) Comments Unknown Sex and Gender Information Value Date Recorded Sex Assigned at Female 07/07/2017 11:15 AM PDT Legal Sex Female 11:20 AM PDT Gender Identity Female 07/07/2017 11:15 AM PDT Sexual Orientation Straight 07/07/2017 11 :15 AM PDT documented as of this encounter Plan of Treatment Not on file documented as of this encounter Visit Diagnoses Not on filedocumented in this encounter Care Teams Picker Machine Operator Relationship Specialty Start Date End Date Dana Hendrix PA-C [address] [place] [address] PCP - General Internal Medicine 10/07/19 02/14/21 documented as of this encounter
--- OUTSIDE RECORDS SUMMARY | 2024-11-23 13:06 | XMS_ITS | Encounter Summary ---
Author Organization [employer] Address [address] [facility] 7t [place] [address] Care Team Providers Care Reroller Hand Name Role Phone Shauna Martínez MD Primary Care Provide r Jason Tai RN Unavailable [phone] Reason for Visit * Reason Onset Date Comments Created In Error 06/30/2024 Encounter Details Date Type Department Care Team ([facility] st Contact Info) Description 06/30/2024 Telephone [facility] [address] [place], [place] [phone] Shauna Martínez MD [address] [place], [place] [phone] Created In Error Social History Tobacco Use Types Packs/Day Years Used Date Smoking Tobacco: Never Passive Smoke Exposure: Never Smokeless Tobacco: Never Alcohol Use Standard Drinks/Week Comments Never 0 (1 standard drink = 0.6 oz pur e alcohol) Depression Answer Date Recorded Patient Health Questionnaire-9 Score 17 04/05/2024 Patient Health Questionnaire-9 Score 17 04/05/2024 Last PHQ-9: Questionnaire Data Not on file 0 04/05/2024 Housing Stability Answer Date Recorded What is your housing situation today? I have aj persaud 07/03/[address] you li ve. Do you have problems with any of the following? None of the above 07/03/2023 Food Insecurity Answer Date Recorded Within the past 12 months, y ou worried that your food would run out before you got money to buy more: Never True 07/03/2023 Within the past 12 months,th e food you bought just didn't last and you didn't have enough money to get more: Never True Transportation Answer Date Recorded In the past 12 months, has l ack of transportation kept you from medical appts, meetings, work or from getting things needed for daily living? No 07/03/2023 Utilities Answer Date Recorded In the past 12 months, has t he electric, gas, oil or water company threatened to shut off services in your home? No 07/03/2023 Depression Answer Date Recorded Patient Health Questionnaire-2 Score 6 04/05/2024 Comments No Sex and Gender Information Value Date Recorded Sex Assigned at Female 07/07/2022 10:33 AM EDT Legal Sex Female 10:33 AM EDT Gender Identity Female 07/07/2022 10:33 AM EDT Sexual Orientation Straight 07/07/2022 10 :33 AM EDT documented as of this encounter Plan of Treatment Upcoming Encounters Date Type Department Care Team (Late st Contact Info) Description 01/24/2025 10:45 AM EDT Office Visit [facility] [address] [place] [address] Shauna Martínez MD [address] [place] [address] documented as of this encounter Visit Diagnoses Not on filedocumented in this encounter Additional Health Concerns Assessment Noted Time PHQ-9 Depression Total Score: 17 024 10:28 AM EDT documented as of this encounter Care Teams Reroller Hand Relationship Specialty Start Date End Date Shauna Martínez MD [address] [place] [address] PCP - General Family Medicine 02/19/21 Jason Tai RN [address] [place] [address] Independent Freight AgentSwager Operator 10/04/24 documented as of this encounter
--- OUTSIDE RECORDS SUMMARY | 2024-11-23 13:06 | XMS_ITS | Encounter Summary ---
Author Organization [employer] Address [address] [facility] [address] 7[address] [place] [address] Care Team Providers Care Die Repairer Forging Name Role Phone Shauna Martínez MD Primary Care Provide r Jason Tai RN Unavailable [phone] Encounter Details Date Type Department Care Team ([facility] st Contact Info) Description 11/04/2024 9:30 AM EST Office Visit [facility] [address] [place], [place] [phone] Shauna Martínez MD [address] [place], [place] [phone] Chronic midline low back pain without sciatica (Primary Dx); Fibromyalgia; Rash; Mixed anxiety and depressive disorder Social History Tobacco Use Types Packs/Day Years [...] Recorded Patient Health Questionnaire-2 Score 6 04/05/2024 Internet Access Answer Date Recorded Internet Access Q1 Yes 09/08/2024 Internet Access Q2 Not on file 09/08/2024 Comments No Sex and Gender Information Value Date Recorded Sex Assigned at Female 07/07/2022 10:33 AM EDT Legal Sex Female 10:33 AM EDT Gender Identity Female 07/07/2022 10:33 AM EDT Sexual Orientation Straight 07/07/2022 10 :33 AM EDT documented as of this encounter Last Filed Vital Signs Vital Sign Reading Time Taken Comments Blood Pressure 100/80 11/04/2024 9:15 AM EST Pulse 68 11/04/2024 9:15 AM EST Temperature 37.1 ??C (98.7 ??F) 11/04/2024 9:15 AM ES T Respiratory Rate 16 11/04/2024 9:15 AM EST Oxygen Saturation - - Inhaled Oxygen Concentration - - Weight 76.6 kg (168 lb 12.8 oz) 11/04/2024 9:15 AM EST Height 160 cm (5' 3 ) 11/04/2024 9:15 AM EST Body Mass Index 29.9 11/04/2024 9:15 AM EST documented in this encounter Progress Notes * Shauna Barroso MD - 11/04/2024 9:30 AM EST SUBJECTIVE: Shanna Clifford is a 49 y.o. year old female who presents for Chronic Disease Management . Acute Concerns: Patient reports she has been having severe lower back pain pain is in the middle of her lower back does not radiate denies trauma or triggering activity Patient reports she has been having more depression lately, she has been following with therapist and psychiatrist Patient also reports disseminated pain that comes and goes Patient has been follow by specialists she has not missed appointments Patient is still thinking about colon cancer screening, she is thinking about doing or not her colonoscopy Social History Social History Narrative Not on file Patient Active Problem List Diagnosis Abnormal gait Hypothyroidism Left hand pain Swelling of hand Migraine without aura, not refractory Mixed anxiety and depressive disorder Orthostatic hypotension Chronic pain Syncope Metrorrhagia Allergic cough Chronic pain of both knees Factor V deficiency (CMS/HCC) Encounter for preventive health examination Colon cancer screening Dizziness Chronic ulcer of lower extremity (CMS/HCC) Epigastric pain Chronic fatigue H/O typhoid fever Encounter for screening and preventative care Vaginal discharge Weight gain Right leg swelling Right leg pain Chronic left hip pain Chronic midline low back pain without sciatica Fibromyalgia Rash No family history on file. Review of Systems Constitutional: Positive for fatigue. Negative for activity change, appetite change, chills, diaphoresis, fever and unexpected weight change. HENT: Negative. Respiratory: Negative. Cardiovascular: Negative. Musculoskeletal: Positive for arthralgias, back pain and myalgias. OBJECTIVE: Vitals: 11/04/24 0915 BP: 100/80 BP Location: Right arm Patient Position: Sitting BP Cuff Size: Adult Pulse: 68 Resp: 16 Temp: 98.7 ??F (37.1 ??C) TempSrc: Oral Weight: 168 lb 12.8 oz (76.6 kg) Height: 5' 3 (1.6 m) Physical Exam Constitutional: Appearance: Normal appearance. Cardiovascular: Rate and Rhythm: Normal rate and regular rhythm. Pulmonary: Effort: Pulmonary effort is normal. Breath sounds: Normal breath sounds. Abdominal: General: Abdomen is flat. Palpations: Abdomen is soft. Musculoskeletal: Cervical back: Spasms and tenderness present. Lumbar back: Spasms and tenderness present. Right lower leg: No edema. Left lower leg: No edema. Neurological: Mental Status: She is alert. Follow Up: Follow up in about 3 months (around 02/01/2025) for chronic conditions. Current Outpatient Medications on File Prior to Visit Medication Sig Dispense Refill albuterol 108 (90 Base) MCG/ACT inhaler Inhale 2 puffs every 4 (four) hours if needed for wheezing or shortness of breath. 18 g 1 amitriptyline (Elavil) 10 MG tablet TAKE 1 TABLET BY MOUTH EVERYDAY AT BEDTIME 30 tablet 1 capsaicin (Capzasin-HP) 0.1 % cream Apply thin layer by topical route up to 4 times daily for pain.45 g 3 cholecalciferol VITAMIN D (Vitamin D-3) 50 MCG (1999 UT) capsule TAKE 1 CAPSULE (50 MCG) BY MOUTH IN THE MORNING 90 capsule 0 [] cyclobenzaprine (Flexeril) 5 MG tablet Take 1-2 tablets (5-10 mg) by mouth if needed in the morning, at noon, and at bedtime for muscle spasms. 30 tablet 0 levothyroxine (Synthroid, Levoxyl) 88 MCG tablet TAKE 1 TABLET BY MOUTH EVERY DAY BEFORE BREAKFAST 90 tablet 3 lidocaine (Lidoderm) 5 % patch Apply 1 patch topically Once per day. Remove & discard patch within 12 hours or as directed by . 30 patch 2 loratadine (Claritin) 10 MG tablet TAKE 1 TABLET BY MOUTH EVERY DAY IN THE MORNING 90 tablet 3 pantoprazole (ProtoNix) 20 MG EC tablet TAKE 1 TABLET BY MOUTH TWICE A DAY 180 tablet 3 Spacer/Aero-Holding Chambers (OptiChamber Jaylin) misc 1 each every 4 (four) hours if needed (asthma). 1 each 0 Tirzepatide-Weight Management (Zepbound) 2.5 MG/0.5ML solution auto-injector Inject 0.5 mL (2.5 mg)under the skin 1 (one) time per week. 2 mL 0 No current facility-administered medications on file prior to visit. Problem List Items Addressed This Visit Chronic midline low back pain without sciatica - Primary Apply heat on affected area I will order a short course of tramadol 50 mg every 12 hours as needed I ordered an x-ray patient will be contacted with results Relevant Medications traMADol (Ultram) 50 MG tablet Other Relevant Orders XR Lumbar Spine 2-3 Views Fibromyalgia Patient was educated about multidisciplinary approach for her condition, it was advise cardiovascular exercise, maintain hydration, treat anxiety/depression and take medications as directed Short course of muscle relaxer prescribed for patient Relevant Medications cyclobenzaprine (Flexeril) 5 MG tablet Rash Relevant Medications clotrimazole-betamethasone (Lotrisone) cream Mixed anxiety and depressive disorder Continue to follow-up with psychiatrist and therapist documented in this encounter Miscellaneous Notes * Assessment & Plan Note - Shauna Barroso MD - 11/04/2024 12:33 PM EST Associated Problem(s): Mixed anxiety and depressive disorder Continue to follow-up with psychiatrist and therapist * Assessment & Plan Note - Shauna Barroso MD - 11/04/2024 12:33 PM EST Associated Problem(s): Fibromyalgia Patient was educated about multidisciplinary approach for her condition, it was advise cardiovascular exercise, maintain hydration, treat anxiety/depression and take medications as directed Short course of muscle relaxer prescribed for patient * Assessment & Plan Note - Shauna Barroso MD - 11/04/2024 12:32 PM EST Associated Problem(s): Chronic midline low back pain without sciatica Apply heat on affected area I will order a short course of tramadol 50 mg every 12 hours as needed I ordered an x-ray patient will be contacted with results documented in this encounter Plan of Treatment Upcoming Encounters Date Type Department Care Team (Late st Contact Info) Description 01/24/2025 10:45 AM EDT Office Visit [facility] [address] [place] [address] Shauna Martínez MD [address] [place] [address] Scheduled Orders Name Type Priority Associated Diagnoses Orde r Schedule XR Lumbar Spine 2-3 Views Imaging Routine Chronic midline low back pain without sciatica Expected: 11/04/2024, Expires: 11/04/2025 documented as of this encounter Visit Diagnoses Diagnosis Chronic midline low back pain without sciatica- Primary Fibromyalgia Unspecified myalgia and myositis Rash Rash and other nonspecific skin eruption Mixed anxiety and depressive disorder Dysthymic disorder documented in this encounter Additional Health Concerns Assessment Noted Time PHQ-9 Depression Total Score: 17 04/05/ 024 10:28 AM EDT documented as of this encounter Care Teams Die Repairer Forging Relationship Specialty Start Date End Date Shauna Martínez MD [address] [place] [address] PCP - General Family Medicine 02/19/21 Jason Tai RN [address] [place] [address] Rn Progressive CareRoll Examiner 10/04/24 documented as of this encounter
--- OUTSIDE RECORDS SUMMARY | 2024-11-23 13:06 | XMS_ITS | Encounter Summary ---
Author Organization [employer] Address [address] [facility] 7t [place] [address] Care Team Providers Care Preschool Assistant Principal Name Role Phone Shauna Martínez MD Primary Care Provide r Jason Tai RN Unavailable [phone] Reason for Visit * Reason Onset Date Comments Care Management 11/15/2024 C3CM- f/u call l Encounter Details Date Type Department Care Team (Late st Contact Info) Description 11/15/2024 Telephone [facility] [address] [place], [place] [phone] Shauna Martínez MD [address] [place], [place] [phone] Care Management (C3CM- f/u call [facility]) Social History Tobacco Use Types Packs/Day Years [...] AM EDT documented as of this encounter Miscellaneous Notes * Telephone Encounter - Jason Tai RN - 11/15/2024 10:08 AM EDT CM Jason Tai RN placed outbound call to patient for follow up call. No answer at this time. LVM introducing herself from [facility] CM Department. Requested call back. CM reinforced direct contact information for any additional questions or concerns. Education provided on [facility] located in [facility]. Patient provided with after-hours line for [facility], , which offer night time triage service and option to transfer to articulation officer provider if needed. CM will attempt another follow up call within 10 days. documented in this encounter Plan of Treatment Upcoming Encounters Date Type Department Care Team (Late st Contact Info) Description 01/24/2025 10:45 AM EDT Office Visit [facility] [address] [place] [phone] Shauna Martínez MD [address] [place] [address] documented as of this encounter Visit Diagnoses Not on filedocumented in this encounter Additional Health Concerns Assessment Noted Time PHQ-9 Depression Total Score: 17 04/05/ 024 10:28 AM EDT documented as of this encounter Care Teams Preschool Assistant Principal Relationship Specialty Start Date End Date Shauna Martínez MD [address] [place] [address] PCP - General Family Medicine 02/19/21 Jason Tai RN [address] [place] [address] Cms ExpertRigging Loft Repairer 10/04/24 documented as of this encounter
--- OUTSIDE RECORDS SUMMARY | 2024-11-23 13:06 | XMS_ITS | Encounter Summary ---
Author Organization [facility] Address [address] [place] [address] Care Team Providers Care Glazier Helper Name Role Phone Dana Hendrix PA-C Primary Care Provider [phone] Encounter Details Date Type Department Care Team (Late st Contact Info) Description 10/05/2015 / Visits [address] [phone] Deidre Charles, COUNSELOR [address] [place] [phone] Social History Tobacco Use Types Packs/Day Years [...] on filedocumented in this encounter Care Teams Glazier Helper Relationship Specialty Start Date End Date Dana Hendrix PA-C [address] [place] [id number] PCP - General Internal Medicine 10/07/19 02/14/21 documented as of this encounter
--- OUTSIDE RECORDS SUMMARY | 2024-11-23 13:06 | XMS_ITS | Encounter Summary ---
Author Organization [employer] Address [address] [place] [address] 7t [place] [address] Care Team Providers Care Circulation Worker Name Role Phone Shauna Martínez MD Primary Care Provide r Jason Tai RN Unavailable [phone] Encounter Details Date Type Department Care Team (Late Contact Info) Description 05/12/2023 Orders Only [facility] [address] [place] [address] [phone] Provider, MD Yannick Social History Tobacco Use Types Packs/Day Years Used Date Smoking Tobacco: Never Smokeless Tobacco: Never Alcohol Use Standard Drinks/Week Comments Never 0 (1 standard drink = 0.6 oz pur e alcohol) Depression Answer Date Recorded Patient Health Questionnaire-9 Score 15 01/28/2023 Depression Answer Date Recorded Patient Health Questionnaire-2 Score 6 01/28/2023 Comments No Sex and Gender Information Value Date Recorded Sex Assigned at Female 07/07/2022 10:33 AM EDT Legal Sex Female 10:33 AM EDT Gender Identity Female 07/07/2022 10:33 AM EDT Sexual Orientation Straight 07/07/2022 10 :33 AM EDT documented as of this encounter Plan of Treatment Upcoming Encounters Date Type Department Care Team (Late Contact Info) Description 01/24/2025 10:45 AM EDT Office Visit [facility] [address] [place] [phone] Shauna Martínez MD [address] [place] [address] [phone] documented as of this encounter Procedures Procedure Name Priority Date/Time Associated Diagnosis Comments MAMMOGRAPHY Routine 04/30/2023 documented in this encounter Results * Hm Mammography (04/30/2023) Anatomical Region Laterality Modality Other us Historical Provider HEALTH MAINTENANCE Final Result documented in this encounter Visit Diagnoses Not on filedocumented in this encounter Additional Health Concerns Assessment Noted Time PHQ-9 Depression Total Score: 15 023 10:57 AM EDT documented as of this encounter Care Teams Circulation Worker Relationship Specialty Start Date End Date Shauna Martínez MD [address] [place] [address] PCP - General Family Medicine 02/19/21 Jason Tai RN [address] [place] [address] Central Station OperatorEnvironmental Health Aide 10/04/24 documented as of this encounter
--- OUTSIDE RECORDS SUMMARY | 2024-11-23 13:06 | XMS_ITS | Clinical Summary ---
Author Organization [employer] Address [address] [place] [address] Care Team Providers Care Family And Consumer Sciences Professor Name Role Phone Shauna Martínez MD Primary Care Provide r aJson Tai RN Unavailable [phone] Allergies Active Allergy Reactions Criticality Noted Date Comments Aspirin 02/19/2021 Medications albuterol 108 (90 Base) MCG/ACT inhalerIndications :Influenza-like symptoms Inhale 2 puffs every 4 (four) hours if needed for wheezing or shortness of breath. 18 g 1 3 Active Spacer/Aero-Holdin g Chambers (OptiChamber Jaylin) miscIndications:In fluenza-like symptoms 1 each every 4 (four) hours if needed (asthma). 1 each 3 Active pantoprazole (ProtoNix) 20 MG EC tabletIndications: Gastroesophageal reflux disease, unspecified whether esophagitis present TAKE 1 TABLET BY MOUTH TWICE A DAY 180 tablet 3 4 Active cholecalciferol VITAMIN D (Vitamin D-3) 50 MCG (1999) capsuleIndications :Vitamin D deficiency TAKE 1 CAPSULE (50 MCG) BY MOUTH IN THE MORNING 90 capsule 4 Active amitriptyline (Elavil) 10 MG tabletIndications: Migraine without aura, not refractory TAKE 1 TABLET BY MOUTH EVERYDAY AT BEDTIME 30 tablet 1 4 Active levothyroxine (Synthroid, Levoxyl) 88 MCG tabletIndications: Acquired hypothyroidism TAKE 1 TABLET BY MOUTH EVERY DAY BEFORE BREAKFAST 90 tablet 3 4 Active loratadine (Claritin) 10 MG tabletIndications: Allergic cough TAKE 1 TABLET BY MOUTH EVERY DAY IN THE MORNING 90 tablet 3 4 Active lidocaine (Lidoderm) 5 % patchIndications:C ervical radiculopathy Apply 1 patch topically Once per day. Remove & discard patch within 12 hours or as directed by MD. 30 patch 2 5 Active capsaicin (Capzasin-HP) 0.1 % creamIndications:C ervical radiculopathy Apply thin layer by topical route up to 4 times daily for pain. 45 g 3 5 Active Tirzepatide-Weight Management (Zepbound) 2.5 MG/0.5ML solution auto-injectorIndic ations:Class 1 obesity due to excess calories with serious comorbidity and body mass index (BMI) of 30.0 to 30.9 in adult Inject 0.5 mL (2.5 mg) under the skin 1 (one) time per week. 2 mL 5 Active clotrimazole-betam ethasone (Lotrisone) creamIndications:R kash Apply topically 2 times daily for 28 days. 45 g 5 025 Active cyclobenzaprine (Flexeril) 5 MG tabletIndications: Cervical radiculopathy Take 1-2 tablets (5-10 mg) by mouth if needed in the morning, at noon, and at bedtime for muscle spasms. 30 tablet 5 025 traMADol (Ultram) 50 MG tabletIndications: Chronic midline low back pain without sciatica Take 1 tablet (50 mg) by mouth every 12 (twelve) hours if needed for severe pain for up to 7 days. 14 tablet 5 025 cyclobenzaprine (Flexeril) 5 MG tabletIndications: Fibromyalgia Take 1 tablet (5 mg) by mouth 3 times daily for 10 days. 30 tablet 5 025 Active Problems Problem Noted Date Diagnosed Date Chronic midline low back pain without sciatica 0 11/04/2024 Assessment & Plan (11/04/2024 12:32 PM EST): Apply heat on affected area I will order a short course of tramadol 50 mg every 12 hours as needed I ordered an x-ray patient will be contacted with results Fibromyalgia 11/04/2024 Assessment & Plan (11/04/2024 12:33 PM EST): Patient was educated about multidisciplinary approach for her condition, it was advise cardiovascular exercise, maintain hydration, treat anxiety/depression and take medications as directed Short course of muscle relaxer prescribed for patient Rash 11/04/2024 Chronic left hip pain 06/30/2024 Vaginal discharge 06/08/2024 Assessment & Plan (06/08/2024 4:34 PM EDT): I will treat empirically for BV Weight gain 06/08/2024 Assessment & Plan (06/08/2024 4:34 PM EDT): TSH will be check Right leg swelling 06/08/2024 Assessment & Plan (06/08/2024 4:34 PM EDT): Continue to follow with vascular Right leg pain 06/08/2024 Assessment & Plan (06/08/2024 4:34 PM EDT): Acetaminophen PRN H/O typhoid fever 04/05/2024 Assessment & Plan (04/05/2024 12:01 PM EDT): I will refer patient to ID for further input and management Encounter for screening and preventative care Assessment & Plan (04/05/2024 12:05 PM EDT): See HPI Chronic fatigue 11/10/2023 Chronic ulcer of lower extremity 10/16/2023 10/16/2023 Epigastric pain 10/16/2023 10/16/2023 Colon cancer screening 07/21/2023 Dizziness 07/21/2023 Assessment & Plan (11/10/2023 11:59 AM EST): Continue to follow with neurology Encounter for preventive health examination 03/08 Assessment & Plan (04/02/2023 10:59 AM EDT): Please refer to HPI 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 Assessment & Plan (04/05/2024 12:02 PM EDT): Continue to follow with hematology Assessment & Plan (11/10/2023 11:58 AM EST): Continue to follow by hematology, she has an appointment 11/11/23 Abnormal gait 01/28/2023 Hypothyroidism 01/28/2023 Assessment & Plan (04/05/2024 12:02 PM EDT): TSH will be check with labs Assessment & Plan (07/21/2023 10:15 AM EST): Last TSH is now normal c/w same medication regimen Assessment & Plan (04/02/2023 11:00 AM EDT): TSH checked on 01/28/23 was low 0.28 I lower her levothyroxine to 88mcg I will like to recheck her level again in 1 month Left hand pain 01/28/2023 Swelling of hand 01/28/2023 Migraine without aura, not refractory 01/28/2023 Assessment & Plan (11/10/2023 11:58 AM EST): I advise to avoid migraine triggers like red wine, chocolate, cheese, strong perfumes I advise to take amitriptyline every night Assessment & Plan (07/21/2023 10:16 AM EST): I advise to avoid migraine triggers like red wine, chocolate, cheese, strong perfumes I will start amitriptyline Mixed anxiety and depressive disorder 01/28/2023 Assessment & Plan (11/04/2024 12:33 PM EST): Continue to follow-up with psychiatrist and therapist Assessment & Plan (04/05/2024 12:05 PM EDT): Followed by therapist Ja [phone] Counseling done today Medications to be prescribed by psychiatrist Orthostatic hypotension 01/28/2023 Chronic pain 01/28/2023 Syncope 01/28/2023 Metrorrhagia 01/28/2023 Assessment & Plan (04/02/2023 11:03 AM EDT): Patient is still having irregular periods hgb last check was 15 Pelvic US left ovarian cyst likely normal follicle Patient will also f/u STATISTICAL FINANCIAL ANALYST appointment 04/03/23 Allergic cough 01/28/2023 Chronic pain of both knees 01/28/2023 Assessment & Plan (07/21/2023 10:15 AM EST): Shower chair will be prescribe Assessment & Plan (04/02/2023 11:05 AM EDT): Patient is now being follow by pain management who did offer local injection but needed to talk with hematology first I will prescribe for her today a roller walker with seat and brakes I will also prescribe a shower chair Encounters Date Type Department Care Team Description 11/18/2024 Population Health Risk Score Community [facility] (C3) Department [address] [phone] Provider, Population Health Generic 11/16/2024 Patient Outreach [facility] [address] [place] [phone] Shauna Martínez MD Care Coordination (C3 [facility] Yoly reyes telephone call outreach) 11/16/2024 Patient Outreach [facility] [address] [place] [phone] Shauna Martínez MD Care Coordination (C3 [facility] Yoly Reyes telephone call outreach /) 11/15/[address] [phone] Shauna Martínez MD Care Management (C3- f/u call lvm) 11/04/2024 9:30 AM EST Office Visit [address] [address] Shauna Martínez MD Chronic midline low back pain without sciatica (Primary Dx); Fibromyalgia; Rash; Mixed anxiety and depressive disorder 11/04/2024 Travel 11/03/[address] [address] Shauna Martínez MD Chart Prep 11/01/[address] [phone] Shauna Martínez MD Care Management (C3- f/u call) 10/21/2024 Patient Outreach [address] [phone] Shauna Martínez MD 10/19/[address] [phone] Jason aTi, JUNIOR Care Management (C3- f/u call) 10/19/2024 Patient Outreach [address] [phone] Shauna Martínez MD Care Coordination (C3 -[facility] Yoly Reyes telephone call outreach) 10/12/[address] [address] Shauna Martínez MD Class 1 obesity due to excess calories with serious comorbidity and body mass index (BMI) of 30.0 to 30.9 in adult 10/11/[address] [phone] Shauna Martínez MD Nurse Triage 10/04/[address] [phone] Jason Tai, JUNIOR Care Management (C3- initial assessment/ enrollment.) 10/04/2024 Patient Outreach [address] [phone] Shauna Martínez MD 10/04/2024 Patient Outreach [address] [phone] Shauna Martínez MD Care Coordination (C3 [facility] Yoly Reyes telephone call outreach) 10/03/2024 Patient Outreach [address] [address] Shauna Marítnez MD Care Coordination ([address] telephone call outreach) 09/28/2024 10:00 AM EST Office Visit [address] [address] Grisel Krueger, EWA Cervical radiculopathy (Primary Dx); Neck pain 09/28/2024 Travel 09/27/2024 Travel 09/27/[address] [address] Shauna Martínez MD Nurse Triage 09/22/2024 Patient Outreach [address] [address] Shauna Martínez MD Care Coordination ([address] telephone call outreach) 09/21/[address] [address] Jason Tai, JUNIOR Care Management (C3- chart review) 09/14/[address] [phone] Shauna Martínez MD Nurse Triage 09/09/2024 Orders Only [facility] [address] [place] [phone] Shauna Martínez MD Class 1 obesity due to excess calories with serious comorbidity and body mass index (BMI) of 30.0 to 30.9 in adult (Primary Dx) 09/09/[address] [address] Shauna Martínez MD 09/08/2024 Patient Outreach [address] [phone] Shauna Martínez MD Pre-visit Planning ((PVP screening completed, no concerns)) from Last 3 Months Immunizations Name Administration Dates Next Due Hep B, Unspecified 01/04/2015 Hep B, adult 02/09/2015,01/04/2015 Influenza injectable quadrivalent preservative f ree 10/08/2017 Influenza, injectable, quadr ivalent, preservative free, pediatric 12/05/2014 Influenza, seasonal, injectable, preservative fr ee 12/05/2014 MMR 01/04/2015,12/05/2014 TD (adult), 2 Lf tetanus tox oid, preservative free, adsorbed 06/05/2019,01/04/2015 Td (adult), 5 Lf tetanus tox oid, preservative free, adsorbed 01/04/2015 Tdap 12/05/2014 Varicella 12/05/2014,12/05/2014 Social History Tobacco Use Types Packs/Day Years Used Date Smoking Tobacco: Never Passive Smoke Exposure: Never Smokeless Tobacco: Never Tobacco Cessation:Counseling Given: Not Answered Alcohol Use Standard Drinks/Week Comments Never 0 [...] Orientation Straight 07/07/2022 10 :33 AM EDT Last Filed Vital Signs Vital Sign Reading Time Taken Comments Blood Pressure 100/80 11/04/2024 9:15 AM EST Pulse 68 11/04/2024 9:15 AM EST Temperature 37.1 ??C (98.7 ??F) 11/04/2024 9:15 AM ES T Respiratory Rate 16 11/04/2024 9:15 AM EST Oxygen Saturation 98% 09/28/2024 10: 23 AM EST Inhaled Oxygen Concentration - - Weight 76.6 kg (168 lb 12.8 oz) 11/04/2024 9:15 AM EST Height 160 cm (5' 3 ) 11/04/2024 9:15 AM EST Body Mass Index 29.9 11/04/2024 9:15 AM EST Plan of Treatment Upcoming Encounters Date Type Department Care Team (Late st Contact Info) Description 01/24/2025 10:45 AM EDT Office Visit [facility] [address] [place] [address] Shauna Martínez MD [address] [place] [address] Health Maintenance Due Date Last Done Comments CT Colonography 1976 Colonoscopy 1976 Colorectal Cancer Screening 1976 FIT DNA/Cologuard 1976 FIT 1976 FOBT 1976 HIV Screening 1976 Lipid Panel 1976 Sigmoidoscopy 1976 Alcohol/Substance Use Screening 1988 Family Planning (PISQ) 1991 Hepatitis C Screening 1994 Hepatitis B Vaccines (3 of 3 - 19+ 3-dose series) 07/06/2015 02/09/2015, 01/04/2015, 01/04/2015 COVID-19 Vaccine ( season) 2024 04/02/2022, 02/11/2021, 01/10/2021 Influenza Vaccine (#1) 2024 8, 12/05/2014, 12/05/2014 Depression Monitoring (PHQ-9) 10/06/2024 04/05/2024, 04/05/2024 Mammogram 11/16/2024 11/17/2023, 0812/2022, 04/30/2023, Additional history exists Depression Screening 04/05/2025 04/05/2024, 04/05/20 SDOH Screening 09/08/2025 09/08/2024 Tobacco Screening 09/28/2025 09/28/2024 Cervical Cancer Screening 05/06/2026 HPV/Cotest 05/06/2026 05/06/2021, 05/06/2021 Pap Smear 05/06/2026 05/06/2021 Zoster Vaccines (1 of 2) 2026 DTaP/Tdap/Td Vaccines (5 - Td or Tdap) 06/05/2029 06/05/2019, 01/04/2015, 01/04/2015, Additional history exists RSV Patients and Patients Aged 60 years or older (1 - 1-dose 75+ series) 2051 HIB Vaccines Aged Out No longer eligi ble based on patient's age to complete this topic HPV Vaccines Aged Out No longer eligi ble based on patient's age to complete this topic Hepatitis A Vaccines Aged Out No long er eligible based on patient's age to complete this topic IPV Vaccines Aged Out No longer eligi ble based on patient's age to complete this topic Meningococcal Vaccine Aged Out No jose d geoffrey eligible based on patient's age to complete this topic Pneumococcal Vaccine: Pediatrics (0 to 5 Years) and At-Risk Patients (6 to 49) Years) Aged Out No longer eligible based on patient's age to complete this topic RSV under 20 months Aged Out No longe r eligible based on patient's age to complete this topic Rotavirus Vaccines Aged Out No longer eligible based on patient's age to complete this topic Procedures Procedure Name Priority Date/Time Associated Diagnosis Comments BI MAMMOGRAM DIAGNOSTIC TOMOSYNTHESIS BILATERAL Routine 11/17/2023 4:21 PM EDT ZZZ HISTORICAL HPV E6/E7 RFLX FLORINDA 16 18/45 Routine 05/06/2021 9:27 AM EDT HM PAP/HPV Routine 05/06/2021 from Last 3 Months or Most Recently Relevant to Health Maintenance Results * BI Mammogram Diagnostic Tomosynthesis Bilateral (11/17/2023 4:21 PM EDT) Anatomical Region Laterality Modality Breast Bilateral Mammography 11/17/2023 4:21 PM EDT Narrative 11/17/2023 4:35 PM EDT ? [facility] [place] ? [address] ?[place], [place] [address] ? Mammography Report ? Signed ? Patient: Shanna Clifford ?MR#: [id number] ? : 1975 ?Acct:[id number] ? Age/Sex: 48 / F ?ADM Date: 11/17/23 ? Loc: HO.MAMMO ? Attending Dr: Shauna Barroso MD ? Ordering Physician: Shauna Martínez MD ?Results: ?? 1Negative ? Date of Service: 11/17/23 ?Follow Up: 1 Year From Orig ?? inal Mammogram ? Procedure(s): MM tomosynthesis diagnostic BI ?? Accession Number(s): [id number] ? cc: Shauna Martínez MD ? EXAMINATION: ?? MM DIAGNOSTIC DIGITAL BREAST TOMOSYNTHESIS, BILATERAL ? CLINICAL INFORMATION: ? Patient due for bilateral screening. Also, six-month follow-up ?? bilateral somewhat global calcifications, of which the majority layer ?? on 90 degrees mediolateral projections. History of benign stereotactic ?? biopsy upper outer left breast, anterior one third with placement of ?? top hat biopsy clip. ? COMPARISON: ?? Mammography: 04/30/2023, 10/23/2022, 04/08/2022 (BI-RADS 0). ? TECHNIQUE: ?? Digital breast tomosynthesis is performed in both the craniocaudal and ?? mediolateral oblique views along with computer-aided detection (CAD). ?? Synthesized 2D images are generated from the tomosynthesis. In addition ?? to standard views, 2-D spot magnification right and left CC views, and ?? right mediolateral views x2 and left mediolateral views x1. ? FINDINGS: ?? The breasts are heterogeneously dense, which may obscure small masses ?? (ACR BI-RADS breast composition Category c). ? There is redemonstration of scattered calcifications in both breasts, ?? which are loosely grouped, fine, and predominantly punctate majority ?? appear to layer on the ML projections, especially in the inferior ?? aspect of the right breast, and retroareolar left breast. Findings ?? suggest milk of calcium There is a post benign stereotactic biopsy clip ?? in the upper outer left breast anterior one third. There has been no ?? aggressive change of these calcifications. These calcifications are ?? benign and no further follow-up is recommended. ? Otherwise, There are no suspicious masses or areas of architectural ?? distortion in either breast. Similar parenchymal asymmetry noted left ?? breast upper outer quadrant, posterior one third, unchanged. The ?? parenchymal pattern of both breasts is stable from prior exams. ? MM/MM tomosynthesis diagnostic BI ?? IMPRESSION: ?? There are no findings suspicious for malignancy in either breast. ? There are layering calcifications in both breasts without suspicious ?? grouping or aggressive change, consistent with benign milk of calcium. ?? No further follow-up recommended. ? Stable asymmetric tissue density upper outer left breast posterior one ?? third without change. This is benign. ? Stable post benign biopsy clip left breast upper outer quadrant, ?? anterior one third. ? Recommend the patient return to routine annual screening mammography. ? ASSESSMENT: ? BI-RADS BI-RADS 1 - Negative ? RECOMMENDATION: ?? 1 year F/U ? Results were provided to the patient at time of visit by the ?? technologist. ? This patient's information was entered into a reminder system with a ?? target due date for their next mammogram. ? Dictated By: ?Emerson Blevins MD ? Signed By: ?<Electronically signed by Emerson Blevins MD in OV> ?11/17/23 1631 ? DD/ 1621 ? TD/TT: ? Top Executive: ? Procedure Note Donlaurajocelynmarcellater, Image - 11/17/2023 [place] [facility] [address] [place], [place] [address] Mammography Report Signed Patient: Tiki Clifford#: [id number] : 1975Acct:[id number] Age/Sex: 48 / FADM Date: 11/17/23 Loc: HO.MAMMO Attending Dr: Shauna Barroso MD Ordering Physician: Shauna Martínez MDResults: 1Negative Date of Service: 11/17/23Follow Up: 1 Year From Orig inal Mammogram Procedure(s): MM tomosynthesis diagnostic BI Accession Number(s): [id number] cc: Shauna Martínez MD EXAMINATION: MM DIAGNOSTIC DIGITAL BREAST TOMOSYNTHESIS, BILATERAL CLINICAL INFORMATION: Patient due for bilateral screening. Also, six-month follow-up bilateral somewhat global calcifications, of which the majority layer on 90 degrees mediolateral projections. History of benign stereotactic biopsy upper outer left breast, anterior one third with placement of top hat biopsy clip. COMPARISON: Mammography: 04/30/2023, 10/23/2022, 04/08/2022 (BI-RADS 0). TECHNIQUE: Digital breast tomosynthesis is performed in both the craniocaudal and mediolateral oblique views along with computer-aided detection (CAD). Synthesized 2D images are generated from the tomosynthesis. In addition to standard views, 2-D spot magnification right and left CC views, and right mediolateral views x2 and left mediolateral views x1. FINDINGS: The breasts are heterogeneously dense, which may obscure small masses (ACR BI-RADS breast composition Category c). There is redemonstration of scattered calcifications in both breasts, which are loosely grouped, fine, and predominantly punctate majority appear to layer on the ML projections, especially in the inferior aspect of the right breast, and retroareolar left breast. Findings suggest milk of calcium There is a post benign stereotactic biopsy clip in the upper outer left breast anterior one third. There has been no aggressive change of these calcifications. These calcifications are benign and no further follow-up is recommended. Otherwise, There are no suspicious masses or areas of architectural distortion in either breast. Similar parenchymal asymmetry noted left breast upper outer quadrant, posterior one third, unchanged. The parenchymal pattern of both breasts is stable from prior exams. MM/MM tomosynthesis diagnostic BI IMPRESSION: There are no findings suspicious for malignancy in either breast. There are layering calcifications in both breasts without suspicious grouping or aggressive change, consistent with benign milk of calcium. No further follow-up recommended. Stable asymmetric tissue density upper outer left breast posterior one third without change. This is benign. Stable post benign biopsy clip left breast upper outer quadrant, anterior one third. Recommend the patient return to routine annual screening mammography. ASSESSMENT: BI-RADS BI-RADS 1 - Negative RECOMMENDATION: 1 year F/U Results were provided to the patient at time of visit by the technologist. This patient's information was entered into a reminder system with a target due date for their next mammogram. Dictated By: Emerson Blevins MD Signed By: <Electronically signed by Emerson Blevins MD in OV> 11/17/23 1631 DD/ 1621 TD/TT: Top Executive: Shauna Barroso MD IMG BI PROCEDURES Fin al Result * HPV E6/E7 RFLX FLORINDA 16 18/45 (05/06/2021 9:27 AM EDT) HPV mRNA E6/E7 rflx Not Detected Not Detected [facility] Comment: Methodology: Telephone Sterilizer-Mediated Amplification This assay detects E6/E7 viral messenger RNA (mRNA) from 14 high-risk HPV types (16,18,31,33,35,39,45,51,52,56,58,59,66,68). The analytical performance characteristics of this assay have been determined by [employer]. The modifications have not been cleared or approved by the FDA. This assay has been validated pursuant to the CLIA regulations and is used for clinical purposes. For additional information, please refer to http://education.Blurr/faq/IEJ420y0 (This link if provided for information/ educational purposes only.) THIS TEST WAS PERFORMED AT: [facility] [address] [place] [address] [address] [place], [place] ??[id number] REYNA ALSTON MD 05/06/2021 9:27 AM EDT Shereen Horn HISTORICAL/NON ORDERABLE LABS Fi nal Result Performing Organization Address City/State/[facility] Co de Phone Number [facility] [address] * Pap Smear (05/06/2021) Historical Provider HEALTH MAINTENANCE Final Result from Last 3 Months or Most Recently Relevant to Health Maintenance Insurance C3 Care Teams Family And Consumer Sciences Professor Relationship Specialty Start Date End Date Shauna Martínez MD [address] [place] [phone] PCP - General Family Medicine 02/19/21 Jason Tai RN [address] [place] [phone] Ramp AttendantStation Engineer 10/04/24
--- OUTSIDE RECORDS SUMMARY | 2024-11-23 13:06 | XMS_ITS | Encounter Summary ---
Author Organization [facility] Address [address] [place] [address] Care Team Providers Care Automotive Salesperson Name Role Phone Dana Hendrix PA-C Primary Care Provider [phone] Encounter Details Date Type Department Care Team (Late st Contact Info) Description 06/23/2018 Interim Notes Caring [facility] Main [address] [place] [phone] Klaus Hernández MD [phone] [place] [address] Social History Tobacco Use Types Packs/Day Years Used Date Smoking Tobacco: Never Smokeless Tobacco: Never Alcohol Use Standard Drinks/Week Comments No 0 (1 standard drink = 0.6 oz pur e alcohol) Comments No Sex and Gender Information Value [...] on filedocumented in this encounter Care Teams Automotive Salesperson Relationship Specialty Start Date End Date Dana Hendrix PA-C [address] [place] [address] PCP - General Internal Medicine 10/07/19 02/14/21 documented as of this encounter
--- OUTSIDE RECORDS SUMMARY | 2024-11-23 13:06 | XMS_ITS | Encounter Summary ---
Author Organization [employer] Address [address] [place] [address] 7t [place] [address] Care Team Providers Care Pet Caretaker Name Role Phone Shauna Martínez MD Primary Care Provide r Jason Tai RN Unavailable [phone] Encounter Details Date Type Department Care Team (Late Contact Info) Description 06/01/2023 Orders Only [facility] [address] [place] [address] [phone] Provider, MD Yannick Social History Tobacco Use [...] Description 01/24/2025 10:45 AM EDT Office Visit [facility] [address] [place] [address] [phone] Shauna Martínez MD [address] [place] [address] [phone] documented as of this encounter Procedures Procedure Name Priority Date/Time Associated Diagnosis Comments HM PAP/HPV Routine 05/06/2021 documented in this encounter Results * Hm Pap Smear (05/06/2021) us Historical Provider HEALTH MAINTENANCE Final Result documented in this encounter Visit Diagnoses Not on filedocumented in this encounter Additional Health Concerns Assessment Noted Time PHQ-9 Depression Total Score: 15 023 10:57 AM EDT documented as of this encounter Care Teams Pet Caretaker Relationship Specialty Start Date End Date Shauna Martínez MD [address] [place] [address] PCP - General Family Medicine 02/19/21 Jason Tai RN [address] [place] [address] Network Systems EngineerGum Machine Operator 10/04/24 documented as of this encounter
--- OUTSIDE RECORDS SUMMARY | 2024-11-23 13:06 | XMS_ITS | Encounter Summary ---
Author Organization [employer] Address [address] [facility] 7t [place] [address] Care Team Providers Care Brush Or Broom Cutter Name Role Phone Shauna Martínez MD Primary Care Provide r Jason Tai RN Unavailable [phone] Reason for Visit * Reason Comments Care Coordination C3 -[facility] Yoly ludwig telephone call outreach Encounter Details Date Type Department Care Team (Latest Contact Info) Description 11/16/2024 Patient Outreach [facility] [address] [place] [address] Shauna Martínez MD [address] [place] [address] [facility] /) Social History Tobacco Use Types Packs/Day Years [...] AM EDT documented as of this encounter Progress Notes * Yoly Verde - 11/16/2024 10:40 AM EDT CHW Yoly Verde placed outbound call to patient for follow up call on SDOH needs. No answer at thistime. LVM introducing herself from [facility] CM Department. Requested call back. CHW reinforced direct contact information or CM for any additional questionsor concerns and extended clinic hours on Mondays and Wednesdays, and Walk-In Urgent Care Located inLobby of [facility]. Patient provided with after-hours line for [facility], , which offer night time triage service and option to transfer to electroneurodiagnostic technician provider if needed. CHW will attempt another followup call within 10 days. documented in this encounter Plan of Treatment Upcoming Encounters Date Type Department Care Team ([facility] st Contact Info) Description 01/24/2025 10:45 AM EDT Office Visit [facility] [address], [place] [phone] Shauna Martínez MD [address] [place], [place] [phone] documented as of this encounter Visit Diagnoses Not on filedocumented in this encounter Additional Health Concerns Assessment Noted Time PHQ-9 Depression Total Score: 17 04/05/ 024 10:28 AM EDT documented as of this encounter Care Teams Brush Or Broom Cutter Relationship Specialty Start Date End Date Shauna Martínez MD [address] [place], [place] [phone] PCP - General Family Medicine 02/19/21 Jason Tai RN [address] [place] [phone] Collar Folder OperatorLoan Specialist 10/04/24 documented as of this encounter
--- OUTSIDE RECORDS SUMMARY | 2024-11-23 13:06 | XMS_ITS | Encounter Summary ---
Author Organization [facility] Address [address] [place] [address] Care Team Providers Care Train Operations Manager Name Role Phone Ruma Dana BOYKIN Primary Care Provider [phone] Reason for Visit * Reason Comments Case Management CHRISTIE Assessment Encounter Details Date Type Department Care Team ([facility] Contact Info) Description 06/28/2019 Interim Notes [address] [phone] Gardenia Jenkins, RN [address] [place] [phone] Social History Tobacco Use Types Packs/Day Years Used Date Smoking Tobacco: Never Smokeless Tobacco: Never Alcohol Use Standard Drinks/Week Comments No 0 (1 standard drink = 0.6 oz pur e alcohol) Social Connections Answer Date Recorded Social Connections and Isolation 0 04/26/2019 Financial Resource Strain Answer Date R ecorded Financial Resource Strain 0 2018 Stress Answer Date Recorded Stress 0 04/26/2019 Physical Activity Answer Date Recorded Physical Activity 0 04/26/2019 Food Insecurity Answer Date Recorded Food 0 04/26/2019 Transportation Needs Answer Date Record ed Transportation 0 04/26/2019 Housing Stability Answer Date Recorded Housing 0 04/26/2019 Safety and Environment Answer Date Gerald rded Safety 0 04/26/2019 Utilities Answer Date Recorded Utilities 0 04/26/2019 Employment Answer Date Recorded Employment 0 04/26/2019 Comments No Sex and Gender Information Value [...] Noted Time PHQ-9 Depression Total Score: 15 019 7:00 AM PDT documented as of this encounter Care Teams Train Operations Manager Relationship Specialty Start Date End Date Dana Hendrix PA-C [address] [place] [address] PCP - General Internal Medicine 10/07/19 02/14/21 documented as of this encounter
--- OUTSIDE RECORDS SUMMARY | 2024-11-23 13:06 | XMS_ITS | Encounter Summary ---
Author Organization [employer] Address [address] [facility] [address] [place] [address] Care Team Providers Care Drug Safety Specialist Name Role Phone Shauna Martínez MD Primary Care Provide r Jason Tai RN Unavailable [phone] Encounter Details Date Type Department Care Team (Latest Contact Info) Description 11/04/2024 Travel Social History Tobacco Use Types Packs/Day Years [...] Description 01/24/2025 10:45 AM EDT Office Visit [facility] [address] [place] [phone] Shauna Martínez MD [address] [place] [phone] documented as of this encounter Visit Diagnoses Not on filedocumented in this encounter Additional Health Concerns Assessment Noted Time PHQ-9 Depression Total Score: 17 024 10:28 AM EDT documented as of this encounter Care Teams Drug Safety Specialist Relationship Specialty Start Date End Date Shauna Martínez MD [address] [place] [phone] PCP - General Family Medicine 02/19/21 Jason Tai RN [address] [place] [phone] Kitchen SupervisorPromotional Marketing Agent 10/04/24 documented as of this encounter
--- OUTSIDE RECORDS SUMMARY | 2024-11-23 13:06 | XMS_ITS | Encounter Summary ---
Author Organization [employer] Address [address] [facility] 7t [place] [address] Care Team Providers Care Deli Clerk Name Role Phone Shauna Martínez MD Primary Care Provide r Jason Tai RN Unavailable [phone] Reason for Visit * Reason Onset Date Comments Chart Prep 11/03/2024 Encounter Details Date Type Department Care Team (Late st Contact Info) Description 11/03/2024 Telephone [facility] [address] [place], [place] [phone] Shauna Martínez MD [address] [place], [place] [phone] Chart Prep Social History Tobacco Use Types Packs/Day Years [...] encounter Miscellaneous Notes * Telephone Encounter - William Daly [place] - 11/03/2024 11:50 AM EST Chart Prep Labs: not applicable Images: not applicable Vaccines due: yes Referrals: no showed on 06/21/2024 for gastro , booked for Mammo and woman services . Screenings: colonoscopy , mammogram Overdue care gaps: Sbirt, PHQ-9 documented in this encounter Plan of Treatment Upcoming Encounters Date Type Department Care Team (Late st Contact Info) Description 01/24/2025 10:45 AM EDT Office Visit [facility] [address] [place] [address] Shauna Martínez MD [address] [place] [address] documented as of this encounter Visit Diagnoses Not on filedocumented in this encounter Additional Health Concerns Assessment Noted Time PHQ-9 Depression Total Score: 17 024 10:28 AM EDT documented as of this encounter Care Teams Deli Clerk Relationship Specialty Start Date End Date Shauna Martínez MD [address] [place] [address] PCP - General Family Medicine 02/19/21 Jason Tai RN [address] [place] [phone] Qc Lab TechnicianDirector Of Intercollegiate Athletics 10/04/24 documented as of this encounter
--- OUTSIDE RECORDS SUMMARY | 2024-11-23 13:06 | XMS_ITS | Clinical Summary ---
Author Organization [facility] [place] [facility] Address [address] [place] [address] Care Team Providers Care Controller [place] Name Role Phone Unavailable Primary Care Provider Unavailabl e Social History Tobacco Use Types Packs/Day Years Used Date Smoking Tobacco: Never Assessed Comments Unknown Sex and Gender Information Value Date Recorded Sex Assigned at Not on file Legal Sex Female 9:03 PM EST Gender Identity Not on file Sexual Orientation Not on file Plan of Treatment Health Maintenance Due Date Last Done Comments Breast Cancer Screening 1976 DTaP,Tdap,and Td Vaccines (1 - Tdap) 1995 Hepatitis B Vaccines (1 of 3 - 19+ 3-dose series) 1995 Cervical Cancer Screening: P ap Smear 01/14/2021 01/14/2018 Colorectal Cancer Screening: Colonoscopy 08/09/2022 Depression Screening 08/09/2022 HIV Screening 08/09/2022 Hepatitis C Screening 08/09/2022 Social Influencers of Health Screening 08/09/2022 COVID-19 Vaccine (2023-2 5 season) 2024 Influenza Vaccine (#1) 2024 HIB Vaccines Aged Out No longer eligi [...] on patient's age to complete this topic MMR Vaccines Aged Out No longer eligi ble based on patient's age to complete this topic Meningococcal ACWY Vaccine Aged Out N o longer eligible based on patient's age to complete this topic Meningococcal B Vacine Aged Out No lo nger eligible based on patient's age to complete this topic Pneumococcal Vaccine: Pediat rics (0 to 5 Years) and At-Risk Patients (6 to 64 Years) Aged Out No longer eligi ble based on patient's age to complete this topic RSV Immunization Patients Un maverick 20 months Aged Out No longer eligible b ased on patient's age to complete this topic Varicella Vaccines Aged Out No longer eligible based on patient's age to complete this topic Procedures Procedure Name Priority Date/Time Associated Diagnosis Comments PAP SMEAR Routine 01/14/2018 from Last 3 Months or Most Recently Relevant to Health Maintenance Results * Pap smear (01/14/2018) 01/14/2018 Narrative HISTORICAL TESTING LAB RESULTING AGENCY - 01/19/2018 12:14 PM EDT [id number] THINPREP PAP, IMAGED: NEGATIVE FOR SQUAMOUS INTRAEPITHELIAL LESION AND MALIGNANCY ??. RESULT OF APTIMA HIGH RISK HPV ASSAY: ? NEGATIVE ?? (SEROTYPES 16,18,31,33,35,39,45,51,52,56,58,59,66,68) MARIANNE ORTIZ(ASCP) (CASE ELECTRONICALLY SIGNED 01 19 2018) ADEQUACY: SATISFACTORY. ENDOCERVICAL/TRANSFORMATION ZONE COMPONENT PRESENT. SOURCE: THINPREP PAP HPV ANY DX: ??REFLEX 16 AND 18, CERVICAL, IMAGED: CLINICAL INFORMATION: HPV ANY DIAGNOSIS. LMP 4/17/18, Z12.4. us Bharat Day MD LAB CYTOLOGY ORDERABLES Final Result HISTORICAL TESTING LAB RESULTING AGENCY from Last 3 Months or Most Recently Relevant to Health Maintenance
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
--- OUTSIDE RECORDS SUMMARY | 2024-11-23 13:06 | XMS_ITS | Encounter Summary ---
Author Organization [employer] Address [address] [facility] [address] [place] [address] Care Team Providers Care Head Of Store Operations Name Role Phone Shauna Martínez MD Primary Care Provide r Jason Tai RN Unavailable [phone] Reason for Visit * Reason Onset Date Comments Med Refill 03/23/2024 Encounter Details Date Type Department Care Team (Late st Contact Info) Description 03/23/2024 Telephone [facility] [address], [place] [phone] Shauna Martínez MD [address] [place], [place] [phone] Med Refill Social History Tobacco Use Types Packs/Day Years Used Date Smoking Tobacco: Never Smokeless Tobacco: Never Alcohol Use Standard Drinks/Week Comments Never 0 (1 standard drink = 0.6 oz pur e alcohol) Depression Answer Date Recorded Patient Health Questionnaire-9 Score 10 11/10/2023 Patient Health Questionnaire-9 Score 10 11/10/2023 Last PHQ-9: Questionnaire Data Not on file 0 11/10/2023 Housing Stability Answer Date Recorded What is [...] Answer Date Recorded Patient Health Questionnaire-2 Score 4 11/10/2023 Comments No Sex and Gender Information Value Date Recorded Sex Assigned at Female 07/07/2022 10:33 AM EDT Legal Sex Female 10:33 AM EDT Gender Identity Female 07/07/2022 10:33 AM EDT Sexual Orientation Straight 07/07/2022 10 :33 AM EDT documented as of this encounter Miscellaneous Notes * Telephone Encounter - Kim Alegria LPN - 03/23/2024 11:36 AM EDT Medication was sent to [facility] #[id number] today. * Telephone Encounter - Ekaterina Rivas - 03/23/2024 11:32 AM EDT TC from pt requesting medication refill. Medications needing refill : levothyroxine (Synthroid, Levoxyl) 88 MCG tablet To be sent to: [facility]/pharmacy #[id number] - [place], [place] - [address] [place] [address] documented in this encounter Plan of Treatment Upcoming Encounters Date Type Department Care Team (Late st Contact Info) Description 01/24/2025 10:45 AM EDT Office Visit [facility] [address], [place] [phone] Shauna Martínez MD [address], [place] [phone] documented as of this encounter Visit Diagnoses Not on filedocumented in this encounter Additional Health Concerns Assessment Noted Time PHQ-9 Depression Total Score: 10 11/09/ 024 10:54 AM EST documented as of this encounter Care Teams Head Of Store Operations Relationship Specialty Start Date End Date Shauna Martínez MD [address] [place] [address] PCP - General Family Medicine 02/19/21 Jason Tai RN [address] [place] [address] Day Habilitation SpecialistIcing Machine Operator 10/04/24 documented as of this encounter
--- OUTSIDE RECORDS SUMMARY | 2024-11-23 13:06 | XMS_ITS | Encounter Summary ---
Author Organization [employer] Address [address] [facility] [address] [place] [address] Care Team Providers Care Utilities Manager Name Role Phone Shauna Martínez MD Primary Care Provide r Jason Tai RN Unavailable [phone] Reason for Visit * Reason Comments Care Coordination [facility] Yoly ludwig telephone call outreach Encounter Details Date Type Department Care Team (Latest Contact Info) Description 11/16/2024 Patient Outreach [facility] [address] [place] [address] Shauna Martínez MD [address] [place] [address] [facility]) Social History Tobacco Use Types Packs/Day Years [...] of this encounter Progress Notes * Yoly Reyes - 11/16/2024 10:43 AM EDT CHW placed additional outbound call to the patient to graduate from the program. No answer at this time. LVM introducing herself from [facility] CM Department. CHW notified patient of their graduation from the Care Management Program. Education provided on how to receive services in the future. CHW reinforced direct contact information or CHW for any additional questions or concerns. Education provided on Walk-In Urgent Care located in [facility]. Patient provided with after-hours line for [facility], , which offer nighttime triage service and option to transfer to concrete block layer provider if needed. documented in this encounter Plan of Treatment Upcoming Encounters Date Type Department Care Team ([facility] st Contact Info) Description 01/24/2025 10:45 AM EDT Office Visit [facility] [address] [place] [address] Shauna Martínez MD [address] [place] [address] documented as of this encounter Visit Diagnoses Not on filedocumented in this encounter Additional Health Concerns Assessment Noted Time PHQ-9 Depression Total Score: 17 04/05/ 024 10:28 AM EDT documented as of this encounter Care Teams Utilities Manager Relationship Specialty Start Date End Date Shauna Martínez MD [address] [place] [address] PCP - General Family Medicine 02/19/21 Jason Tai RN [address] [place] [id number] Gas Appliance MechanicReel Film Inspector 10/04/24 documented as of this encounter
--- OUTSIDE RECORDS SUMMARY | 2024-11-23 13:06 | XMS_ITS | Encounter Summary ---
Author Organization [employer] Address [address] [facility] 7t [place] [address] Care Team Providers Care Chief Maintenance Supervisor Name Role Phone Shauna Martínez MD Primary Care Provide r Jason Tai RN Unavailable [phone] Reason for Visit * Reason Onset Date Comments Care Management 11/01/2024 C3CM- f/u call Encounter Details Date Type Department Care Team ([facility] st Contact Info) Description 11/01/2024 Telephone [facility] [address] [place], [place] [phone] Shauna Martínez MD [address] [place], [place] [phone] Care Management (C3CM- f/u call) Social History Tobacco Use Types Packs/Day Years [...] Telephone Encounter - Jason Tai RN - 11/01/2024 12:10 PM EST CHERYL Tai RN and placed outbound call to patient. Call answered by patient's daughter- Radha. Patient's name, and address confirmed. Patient's daughter states the patient is doing well. She states the patient saw Cardiology last week and was given a monitor which she is currently wearing. She states the patient will be contacted by the office when she is due to return it. Radha statespatient also recently attended visit with chiropractor. She states the visit went well. Per Radha, patient reported receiving a call from [facility] dental with an appt to establish care. CM noted no pending appt at this time. CM called [facility] dental. Informed no pending appt at this time. Patient added to [facility] list and they will call patient with an appt once available. Radha states the patient's vaginal bleeding has subsided since her visit with HEADWAITER/HEADWAITRESS. She states the patient reported bleeding as light and denied any pain. Per Radha, patient doing well emotionally. She reports compliance to visits with her psych provider. Radha is aware of patient's upcoming f/u with PCP on 11/04/24. She denies any barriers to attending. Radha uncertain if patient is interested in the referral to LTSS at this time. Shestates she will f/u with patient and will inform CM at next call. No further questions or concerns. CM reinforced direct contact information for any additional questions or concerns. Education provided on [facility] Ur[facility] Care located in [facility]. Radha provided with after-hours line for [facility], , which offer night time triage service and option to transfer to cooperative education director provider if needed. She verbalizes understanding, and able to repeat back to proposal manager writer. A follow up call will be placed within 10 days, she agrees with plan. documented in this encounter Plan of Treatment Upcoming Encounters Date Type Department Care Team ([facility] st Contact Info) Description 01/24/2025 10:45 AM EDT Office Visit [facility] [address] [place], [place] [phone] Shauna Martínez MD [address] [place], [place] [phone] documented as of this encounter Visit Diagnoses Not on filedocumented in this encounter Additional Health Concerns Assessment Noted Time PHQ-9 Depression Total Score: 17 04/05/ 024 10:28 AM EDT documented as of this encounter Care Teams Chief Maintenance Supervisor Relationship Specialty Start Date End Date Shauna Martínez MD [address] [place], [place] [phone] PCP - General Family Medicine 02/19/21 Jason Tai RN [address] [place] [phone] Environmental Permitting SpecialistCd Reactor Operator 10/04/24 documented as of this encounter
--- OUTSIDE RECORDS SUMMARY | 2024-11-23 13:07 | XMS_ITS | Encounter Summary ---
Author Organization [employer] Address [address] [facility] 7t [place] [address] Care Team Providers Care Accreditation Manager Name Role Phone Shauna Martínez MD Primary Care Provide r Jason Tai RN Unavailable [phone] Encounter Details Date Type Department Care Team ([facility] st Contact Info) Description 11/18/2024 Population Health Risk Score Community Health Care [facility] (C3) Department [address] [phone] Provider, Population Health Generic Social History Tobacco Use Types Packs/Day Years [...] Description 01/24/2025 10:45 AM EDT Office [facility] [address] [place] [phone] Shauna Martínez MD [address] [place] [phone] documented as of this encounter Visit Diagnoses Not on filedocumented in this encounter Additional Health Concerns Assessment Noted Time PHQ-9 Depression Total Score: 17 024 10:28 AM EDT documented as of this encounter Care Teams Accreditation Manager Relationship Specialty Start Date End Date Shauna Martínez MD [address] [place] [address] PCP - General Family Medicine 02/19/21 Jason Tai RN [address] [place] [address] Termite TechnicianMortgage Analyst 10/04/24 documented as of this encounter
== END 2024-11-23 10:54 | disposition home or self-care (01) ==
LOC: HO.MAMMO 10:53
PROVIDERS: PCP Internal Medicine; Visit Provider Internal Medicine
DX: Z12.31 Encounter for screening mammogram for malignant neoplasm of breast (principal)
CPT/HCPCS: 77063; 77067

== ENCOUNTER → 2024-11-23 11:00 | Outpatient (BNV) | payer MEDICAID, SELFPAY | PROVIDERS: PCP Internal Medicine; Visit Provider Internal Medicine | DX: Z12.31 Encounter for screening mammogram for malignant neoplasm of breast (principal) | CPT/HCPCS: 77063; 77067 ==

== ENCOUNTER 2025-02-15 13:27 | Outpatient (REF) | payer MEDICAID, SELFPAY ==
[2025-02-15 13:46] LABS: MANUAL DIFF FLAG NO
[2025-02-15 13:59] LABS: Basophils Percent Auto 0.5 % (0-2); Eosinophils Absolute Auto 0.1 X10*3/uL (0.0-0.4); Eosinophils Percent Auto 0.9 % (0-4); Hematocrit 44.9 % (37.0-47.0); Imm Gran Abs Auto 0.02 X10*3/uL (0.00-0.03); Imm Gran Pct Auto 0.4 % (0.0-0.4); Lymphocytes Absolute Auto 1.8 X10*3/uL (1.2-4.9); Lymphocytes Percent Auto 32.4 % (20-40); Mean Corpuscular HGB Conc 33.4 g/dl (31.0-35.0); Mean Corpuscular Hemoglobin 27.5 pg (27.0-33.0); Mean Corpuscular Volume 82.4 fL (80.0-98.0); Mean Platelet Volume 10.1 fL (9.4-12.3); Monocytes Absolute Auto 0.3 X10*3/uL (0.1-1.2); Monocytes Percent Auto 6.2 % (2-11); Neutrophils Absolute Auto 3.3 x10*3/uL (2.0-8.3); Neutrophils Percent Auto 59.6 % (45-73); Platelet Count 248 X10*3/uL (160-400); Red Blood Count 5.45 X10*6/uL (4.20-5.50); Red Cell Distribution Width 13.9 % (11.0-16.0); White Blood Count 5.5 X10*3/uL (4.8-10.8)
[2025-02-15 14:06] LABS: Estimated Average Glucose 100 mg/dL; Hemoglobin A1c % 5.1 % (<6.0)
[2025-02-15 14:23] LABS: B Type Natriuretic Peptide 34 pg/mL (<100)
[2025-02-15 14:35] LABS: Anion Gap 10 (12-20); Blood Urea Nitrogen 11 mg/dL (9-16); Calcium 8.9 mg/dL (8.4-10.2); Carbon Dioxide 28 mmol/L (22-29); Chloride 103 mmol/L (96-108); Cholesterol 186 mg/dL (<200); Estimated Glomerular Filt Rate > 60; Glucose Random 78 mg/dL (60-115); HDL Cholesterol 54 mg/dL (>40); LDL Cholesterol Calculated 123 mg/dL (<100); Potassium 4.1 mmol/L (3.3-5.1); Sodium 137 mmol/L (135-145); Triglycerides 47 mg/dL (<150)
--- OUTSIDE RECORDS SUMMARY | 2025-02-15 15:11 | XMS_ITS | Encounter Summary ---
Author Organization [employer] Address [address] [place] [address] 7t [place] [address] Care Team Providers Care Tunnel Man Name Role Phone Shauna Martínez MD Primary Care Provide r Jason Tai RN Unavailable [phone] Encounter Details Date Type Department Care Team ([facility] Contact Info) Description 06/01/2023 Orders Only [facility] [address] [place] [address] [phone] Provider, MD Yannick Social History Tobacco Use [...] Department Care Team (Late Contact Info) Description 04/06/2025 10:15 AM EDT Office Visit [facility] [address] [place] [address] [phone] Shauna Martínez MD [address] [place] [address] [phone] 05/09/2025 10:45 AM EDT Office Visit [facility] MED & PEDS [address] [place] [address] Beltran Rich MD [address] [place] [address] documented as of this encounter Procedures Procedure [...] documented as of this encounter Care Teams Tunnel Man Relationship Specialty Start Date End Date Shauna Martínez MD [address] [place] [address] PCP - General Family Medicine 02/19/21 Jason Tai RN [address] [place] [address] Environmental EpidemiologistRevenue Cycle Administrator 10/04/24 01/01/25 documented as of this encounter
== END 2025-02-15 13:28 | disposition home or self-care (01) ==
LOC: HO.LAB 13:27
PROVIDERS: PCP Internal Medicine; Visit Provider Internal Medicine Cardiovascular Disease
DX: I73.9 Peripheral vascular disease, unspecified (principal)
CPT/HCPCS: 36415; 80048; 80061; 83036; 83880; 84443; 85025

== ENCOUNTER 2025-04-18 14:17 | Outpatient (AMB) | payer MEDICAID, SELFPAY ==
--- NOTE | 2025-04-18 14:16 | A.OFFVIS_ITS ---
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 Blocking Machine Tender: Blocking Machine Tender Present (Dunia) Accompanied by: Self / Same As Patient Allergies aspirin Allergy (Unknown, Verified 04/18/25 14:22) bleeding lidocaine patch Allergy (Intermediate, Uncoded 10/12/24 13:13) Rash Is last menstrual period known: Yes Last menstrual period: 03/08/25 Post menopausal: No Patient : No HPI Comments Details: Patient is a premenopausal woman presenting for annual examination. Spot Billing Clerk concerns: History of Lilleta use, reports bleeding x1 month. 3 light pads a day. Having some hot flashes. Current Lovenox user. Currently is not sexually active. FH colon cancer. Last pap smear is 2020, negative. Mammogram: 2024. [facility] Medical History IUD (intrauterine device) in place Fibroid Chronic ulcer of leg Venous insufficiency Orthostatic hypotension Hx of migraine headaches Depression with anxiety Hypothyroid Ulcer of lower extremity Factor V deficiency Surgical History History of left breast biopsy H/O skin graft Family History Maternal Aunt Stomach cancer Mother Colon cancer Father Factor V deficiency Social History Household Members Other:: lives with 2 daughters Alcohol intake: never Patient Tobacco Use Status: Never used Tobacco Patient : No Female Reproductive History Menstrual Age of Menarche: 12 Duration of menses: other (Lasted entire month of March ) Date of last menstrual period: 03/08/25 control method: progestin IUCD (Lillita ) Total pregnancies: 3 Full term: 3 Multiple births: 1 Date of last pap smear: 05/07/21 (negative pap smear, negative hpv ) Date of Mammogram: 11/23/24 (bi rad 2) Review of Systems Const All systems reviewed & are unremarkable except as noted in HPI and below Reports as per HPI Eyes Reports no additional complaints ENT Reports no additional complaints Card Reports no additional complaints Resp Reports no additional complaints GI Reports as per HPI and Reports no additional complaints Reports as per HPI Musc Reports no additional complaints Skin/Breast Reports as per HPI Neuro Reports no additional complaints Psych Reports no additional complaints Endo Reports no additional complaints Marek/Lymph Reports no additional complaints Aller/Immun Reports no additional complaints Physical Exam Vital Signs: Last Vital Signs BP 102/66 04/18/25 14:21 BMI result Body Mass Index 29.5 Const General: cooperative, healthy appearing, no acute distress, well developed and alert Orientation/consciousness: patient oriented x3 HEENT Head: Yes normal to inspection Eyes General: appearance normal, both eyes and all related structures Neck Neck: Yes normal visual inspection Thyroid: Thyroid normal Chest Chest palpation & inspection: normal inspection of the chest and other (no puckering, dimpling, peau de orange, retraction, discharge, masses) Breast/axilla inspection: normal inspection of the breasts Breast/axilla palpation: normal palpation of the breasts Resp Effort & Inspection: normal respiratory effort GI Inspection: Yes normal to inspection Palpation (GI): Soft to palpation Rectal Exam - Female: deferred General: Yes bladder normal to palpation External Female Exam: normal external appearance and normal appearance of the urethra Speculum Exam - Vagina: normal appearance of the vagina, normal palpation and normal vaginal discharge Speculum Exam - Cervix: normal appearance of the cervix, normal palpation and Other cervical findings present (IUD strings at the os, bled slightly with Pap) Bimanual exam- vagina & uterus: normal bimanual exam, normal palpation, uterine size normal, bladder normal to palpation, normal palpation and non-tender Bimanual Exam- Adnexa, other: no masses Skin General skin exam: no rashes or lesions noted Rashes: no rashes Neuro General: patient oriented x3 Cognition (Neuro): normal cognition Extrem General: Yes normal to inspection Psych Attitude: cooperative Thought process: Normal thought process present Assessment & Plan Assessment & Plan (1) Abnormal uterine bleeding (AUB): Code(s): N93.9 - Abnormal uterine and vaginal bleeding, unspecified Category: Medical Plan: Plan workup for AUB to include Pap smear, cervical cultures, CBC, and pelvic ultrasound. Total time I personally spent on visit and management today: ?20 minutes. Time spent included review of pertinent office notes in the electronic health record; review of laboratory and imaging results; review of personal family medical history; performing physical exam; discussing diagnosis and plan of care with the patient; documenting the encounter in the EMR. The patient expressed understanding and agreement with the plan of care. All of her questions and concerns were addressed to the best of my ability. (2) Encounter for gynecological examination (general) (routine) with abnormal findings: Code(s): Z01.411 - Encounter for gynecological examination (general) (routine) with abnormal findings Category: Medical Plan: Discussed: Current recommendations for pap smears per ASCCP guidelines. Breast awareness and periodic breast exams. Mammogram yearly. Maintain a healthy lifestyle including a well balanced diet and routine exercise. Patient verbalizes understanding and agrees to the plan of care. She was given opportunity to ask questions and all questions were answered to the best of my ability. RTO in one year for annual resident care spec examination. This note is constructed using voice recognition software. While every effort has been made to ensure accuracy, whip sawyer errors may have been included. (3) IUD surveillance: Code(s): Z30.431 - Encounter for routine checking of intrauterine contraceptive device Category: Medical Plan Plan pelvic ultrasound to rule out migration of IUD which can cause irregular bleeding patterns. Orders: Orders Complete Blood Count no Diff Today N93.9 - Abnormal uterine and vaginal bleeding, unspecified Bacterial Vaginosis Panel Today N93.9 - Abnormal uterine and vaginal bleeding, unspecified Pap Smear Today Z01.411 - Encounter for gynecological examination (general) (routine) with abnormal findings US pelvic and transvaginal Today D21.9 - Benign neoplasm of connective and other soft tissue, unspecified, N93.9 - Abnormal uterine and vaginal bleeding, unspecified, Z30.431 - Encounter for routine checking of intrauterine contraceptive device CT NG by PCR Vag/Cerv Today N93.9 - Abnormal uterine and vaginal bleeding, unspecified HPV High risk Today Z01.411 - Encounter for gynecological examination (general) (routine) with abnormal findings Coding Level of Care Code Est Pt Level 3 (10896) Est Pt Prev Care 40-64y(65586) Diagnoses Abnormal uterine bleeding (AUB) N93.9 Encounter for gynecological examination (general) (routine) with abnormal findings Z01.411 IUD surveillance Z30.431
[2025-04-18 14:21] VITALS: BP 102/66; BMI 29.5
--- OUTSIDE RECORDS SUMMARY | 2025-04-18 15:11 | XMS_ITS | Clinical Summary ---
Author Organization [facility] Address [address] [place] [address] Phone Care Team Providers Care Public Affairs Specialist Name Role Phone Shauna Martínez MD Primary Care Provide r Allergies No known active allergies Medications Hospital, Clinic, or Other Facility Administered Medication Ordered Dose Route Frequency Start Date End Date Status lidocaine (PF) (XYLOCAINE-MPF) 1 % injection 0.5 mLIndications:Planta r fasciitis .5 mL inj Once PRN Procedure 03/21/2025 03/21/2025 Ended triamcinolone acetonide (KENALOG-40) 40 mg/mL injection 40 mgIndications:Planta r fasciitis 40 mg IAtc Once PRN Procedure 03/21/2025 03/21/2025 Ended Encounters Date Type Department Care Team Description 03/21/2025 8:30 AM EDT Office Visit [facility] [address] [phone] Juwan Key, DPM Pain in both feet (Primary Dx); Interdigital neuroma of left foot; Equinus contracture of left ankle; Plantar fasciitis 03/14/2025 8:45 AM EDT Office Visit [facility] [address] [phone] Juwan Key, DPM Pain in both feet (Primary Dx); Interdigital neuroma of left foot; Equinus contracture of left ankle; Plantar fasciitis 03/06/2025 10:45 AM EDT Office Visit [facility] [address] [phone] Juwan Key Kiah, DPM Pain in both feet (Primary Dx); Interdigital neuroma of left foot; Equinus contracture of left ankle; Plantar fasciitis from Last 3 Months Social History Tobacco Use Types Packs/Day Years Used Date Smoking Tobacco: Never Assessed Comments Unknown Sex and Gender Information Value Date Recorded Sex Assigned at Not on file Legal Sex Female 9:03 PM EST Gender Identity Not on file Sexual Orientation Not on file Last Filed Vital Signs Vital Sign Reading Time Taken Comments Blood Pressure - - Pulse - - Temperature - - Respiratory Rate - - Oxygen Saturation - - Inhaled Oxygen Concentration - - Weight 79.4 kg (175 lb) 03/06/2025 11:12 AM EDT Height 165.1 cm (5' 5 ) 03/06/2025 11:12 AM EDT Body Mass Index 29.12 03/06/2025 11:12 AM EDT Plan of Treatment Health Maintenance Due Date Last Done Comments Breast Cancer Screening 1975 Hepatitis B Vaccines (3 of 3 - 19+ 3-dose series) 07/06/2015 02/09/2015, 01/04/2015 Cervical Cancer Screening: P ap Smear 01/14/2021 01/14/2018 Colorectal Cancer Screening: Colonoscopy 08/09/2022 Hepatitis C Screening 08/09/2022 Social Influencers of Health Screening 08/09/2022 COVID-19 Vaccine (3 - 2023-2 5 season) 2024 02/11/2021, 01/10/2021 Depression Screening 09/07/2024 Influenza Vaccine (#1) 2025 8, 12/05/2014 Cholesterol Screening (Lipid Panel) 11/08/2025 11/08/2020, 11/08/2020, 08/30/2018 DTaP,Tdap,and Td Vaccines (4 - Td or Tdap) 06/05/2029 06/05/2019, 01/04/2015, 12/05/2014 HIV Screening Completed 12/05/2014 Varicella Vaccines Aged Out 12/05/2014 No longer eligible based on patient's age to complete this topic MMR Vaccines Aged Out 01/04/2015, 12/05/2014 No longer eligible based on patient's age to complete this topic HIB Vaccines Aged Out No longer eligi [...] age to complete this topic Meningococcal B Vaccine Aged Out No l onger eligible based on patient's age to complete this topic Pneumococcal Vaccine: Pediatrics (0 to 5 Years) and At-Risk Patients (6 to 49 Years) Aged Out No longer eligible b ased on patient's age to complete this topic RSV Immunization Patients Under 20 months Aged Out No longer eligible b ased on patient's age to complete this topic Procedures Procedure Name Priority Date/Time Associated Diagnosis Comments INJECTION TENDON OR LIGAMENT Routine 03/21/2025 8:30 AM EDT Plantar fasciitis INJECTION TENDON OR LIGAMENT Routine 03/14/2025 8:45 AM EDT Plantar fasciitis INJECTION TENDON OR LIGAMENT Routine 03/06/2025 10:45 AM EDT Plantar fasciitis PAP SMEAR Routine 01/14/2018 from Last 3 Months or Most Recently Relevant to Health Maintenance Results * Injection tendon or ligament (03/21/2025 8:30 AM EDT) Narrative Juwan Key DPM - 03/21/2025 8:30 AM EDT Juwan Key DPM 03/21/2025 9:29 AM Injection tendon or ligament Indications: pain Details: 25 G needle Medications: 0.5 mL lidocaine (PF) 1 %; 40 mg triamcinolone acetonide 40 mg/mL Informed Consent: Laterality: Left us Juwan Key DPM IN CLINIC/BEDSIDE ORDERABLE S Final Result * Injection tendon or ligament (03/14/2025 8:45 AM EDT) Narrative Juwan Key DPM - 03/14/2025 8:45 AM EDT Juwan Key DPM 03/14/2025 7:21 PM Injection tendon or ligament Indications: pain Details: 25 G needle Medications: 0.5 mL lidocaine (PF) 1 %; 40 mg triamcinolone acetonide 40 mg/mL Informed Consent: Laterality: Left us Juwan Key DPM IN CLINIC/BEDSIDE ORDERABLE S Final Result * Injection tendon or ligament (03/06/2025 10:45 AM EDT) Narrative Juwan Key DPM - 03/06/2025 10:45 AM EDT Juwan Key DPM 03/06/2025 12:12 PM Injection tendon or ligament Indications: pain Details: 25 G needle Medications: 0.5 mL lidocaine (PF) 1 %; 40 mg triamcinolone acetonide 40 mg/mL Informed Consent: Laterality: Left Juwan Key DPM IN CLINIC/BEDSIDE ORDERABLE S Final Result * Pap smear (01/14/2018) 01/14/2018 Narrative HISTORICAL TESTING LAB RESULTING AGENCY - 01/19/2018 12:14 PM EDT [id number] THINPREP PAP, IMAGED: NEGATIVE FOR SQUAMOUS INTRAEPITHELIAL LESION AND MALIGNANCY . RESULT OF APTIMA HIGH RISK HPV ASSAY: NEGATIVE (SEROTYPES 16,18,31,33,35,39,45,51,52,56,58,59,66,68) MARIANNE ORTIZ(ASCP) (CASE ELECTRONICALLY SIGNED 01 19 2018) ADEQUACY: SATISFACTORY. ENDOCERVICAL/TRANSFORMATION ZONE COMPONENT PRESENT. SOURCE: THINPREP PAP HPV ANY DX: REFLEX 16 AND 18, CERVICAL, IMAGED: CLINICAL INFORMATION: HPV ANY DIAGNOSIS. LMP 4/17/18, Z12.4. us Bharat Day MD LAB CYTOLOGY ORDERABLES Final Result HISTORICAL TESTING LAB RESULTING AGENCY from Last 3 Months or Most Recently Relevant to Health Maintenance Insurance MEDICAID - [place] Care Teams Public Affairs Specialist Relationship Specialty Start Date End Date Shauna Martínez MD [address] [place] [phone] PCP - General Internal Medicine 01/26/25
--- OUTSIDE RECORDS SUMMARY | 2025-04-18 15:11 | XMS_ITS | Encounter Summary ---
Author Organization [employer] Address [address] [place] [address] [address] [place] [address] Care Team Providers Care Structural Worker Name Role Phone Shauna Martínez MD Primary Care Provide r Jason Tai RN Unavailable [phone] Encounter Details Date Type Department Care Team ([facility] Contact Info) Description 06/01/2023 Orders Only [facility] [address] [place] [address] ProviderYannick MD Social History Tobacco Use Types Packs/Day Years [...] Department Care Team (Late Contact Info) Description 05/09/2025 10:45 AM EDT Office Visit [facility] MED & PEDS [address] [place], [place] [phone] Beltran Rich MD [address] [place], [place] [phone] documented as of this encounter Procedures Procedure [...] documented as of this encounter Care Teams Structural Worker Relationship Specialty Start Date End Date Shauna Martínez MD [address] [place] [address] PCP - General Family Medicine 02/19/21 Jason Tai RN [address] [place] [address] Awning CraftspersonDrywall Metal Stud Worker 10/04/24 01/01/25 documented as of this encounter
--- OUTSIDE RECORDS SUMMARY | 2025-04-18 15:12 | XMS_ITS | Encounter Summary ---
Author Organization [facility] Address [address] [place] [address] Care Team Providers Care Guide Setter Name Role Phone Dana Hendrix PA-C Primary Care Provider [phone] Encounter Details Date Type Department Care Team (Late st Contact Info) Description 06/23/2018 Interim Notes [facility] Main [address] [place] [phone] Klaus Hernández MD [phone] [place] [address] Social History Tobacco Use Types [...] on filedocumented in this encounter Care Teams Guide Setter Relationship Specialty Start Date End Date Dana Hendrix PA-C [address] [place] [address] PCP - General Internal Medicine 10/07/19 02/14/21 documented as of this encounter
== END 2025-04-18 15:15 | disposition home or self-care (01) ==
LOC: HO.HWS 14:17
PROVIDERS: PCP Internal Medicine; Visit Provider Advanced Practice Midwife
DX: N93.9 Abnormal uterine and vaginal bleeding, unspecified (principal); Z01.411 Encounter for gynecological examination (general) (routine) with abnormal findings; Z30.431 Encounter for routine checking of intrauterine contraceptive device
CPT/HCPCS: 99213; 99396; 99459

== ENCOUNTER 2025-04-18 14:17 | Outpatient (REF) | payer MEDICAID, SELFPAY ==
[2025-04-18 16:45] LABS: Hematocrit 44.8 % (37.0-47.0); Hemoglobin 15.1 g/dl (12.0-16.0); Mean Corpuscular HGB Conc 33.7 g/dl (31.0-35.0); Mean Corpuscular Hemoglobin 28.1 pg (27.0-33.0); Mean Corpuscular Volume 83.3 fL (80.0-98.0); NRBC Abs Auto 0.000 X10*3/uL (0.0-0.012); NRBC Pct Auto 0.0 /100WBC (0.0-0.2); Platelet Count 267 X10*3/uL (160-400); Red Blood Count 5.38 X10*6/uL (4.20-5.50); White Blood Count 6.4 X10*3/uL (4.8-10.8)
[2025-04-18 17:43] LABS: Bacterial Vaginosis PCR NEGATIVE (Negative); Candida Group PCR NOT DETECTED (Not Detect); Candida glab krusei PCR NOT DETECTED (Not Detect); Trichomonas vaginalis PCR NOT DETECTED (Not Detect)
[2025-04-18 18:16] LABS: CT PCR NOT DETECTED (Not Detect.); NG PCR NOT DETECTED (Not Detect.)
== END 2025-04-18 14:18 | disposition home or self-care (01) ==
LOC: HO.LAB 14:17
PROVIDERS: PCP Internal Medicine; Visit Provider Advanced Practice Midwife
DX: Z01.411 Encounter for gynecological examination (general) (routine) with abnormal findings (principal); Z11.51 Encounter for screening for human papillomavirus (HPV); Z11.3 Encounter for screening for infections with a predominantly sexual mode of transmission; Z11.8 Encounter for screening for other infectious and parasitic diseases; N93.9 Abnormal uterine and vaginal bleeding, unspecified; D21.9 Benign neoplasm of connective and other soft tissue, unspecified
CPT/HCPCS: 36415; 81515; 85027; 87491; 87591; 87626; 88175; 99212; 99396; 99459

== ENCOUNTER 2025-05-02 13:24 | Outpatient (AMB) | payer MEDICAID, SELFPAY ==
--- NOTE | 2025-05-02 13:35 | A.OFFVIS_ITS ---
Vital Signs 05/02/25 13:39 Height 5 ft 4 in Weight 172 lb BMI 29.5 BP 126/78 Blood Pressure Location Lt brachial Position Sitting Pulse 64 Pulse Source Pulse Oximeter Pulse Oximetry (%) 99 Oxygen Delivery Method Room Air Intake Visit Reasons: pre colonoscopy Intake Note: Patient complex follow up for Ruchi godinez was 08/12/2022. Patient cc: C.O. intermittent abd pain which seems idiopathic in nature. Pt also reports FMHx on both sides and is concerned about having colo sooner rather than later. Case Investigator requested only for provider. Case Investigator Required: Yes Case Investigator Services: Case Investigator Present Case Investigator Name: [id number] Information Interpreted: clinical only Accompanied by: Self / Same As Patient Allergies aspirin Allergy (Unknown, Verified 05/02/25 13:35) bleeding lidocaine patch Allergy (Intermediate, Uncoded 05/02/25 13:35) Rash Medication List - Last Reconciled 05/02/25 by Kelly Agrawal CNP amitriptyline 10 mg PO BEDTIME arm brace (JENNIFER Elbow Brace) As directed bupropion HCl XL 300 mg PO QAM buspirone 15 mg PO BID cholecalciferol (vitamin D3) 50 mcg PO QAM clopidogrel 75 mg PO DAILY cyclobenzaprine 5 - 10 mg PO TID PRN dicyclomine 10 - 20 mg PO DAILY PRN enoxaparin (Lovenox) 120 mg subcut DAILY famotidine 40 mg PO DAILY PRN furosemide 20 mg PO DAILY gabapentin 400 mg PO BEDTIME levothyroxine 88 mcg PO QAM loratadine 10 mg PO QAM midodrine 5 mg PO TID mirtazapine 15 mg PO BEDTIME pantoprazole 20 mg PO BID quetiapine 200 mg PO BEDTIME sertraline 200 mg PO BEDTIME simethicone (Gas Relief (simethicone)) 125 mg PO TID-QID PRN sumatriptan succinate 100 mg PO Q2-4H tirzepatide (weight loss) (Zepbound) 2.5 mg subcut QWEEK topiramate 200 mg PO BEDTIME HPI HPI pre colonoscopy: Details: Patient is a 49-year-old female with PMH of obesity, depression, hypothyroidism, migraines, recurring DVT on Lovenox and asthma. Referred by PCP for pre colonoscopy screening. Previously established with LUANA Gruber last visit in 2021 She reports a history of bloating often triggered by specific foods, including eggs, red meats (starting this year), rice, coffee, soft drinks, desserts, and bread. She previously tried a gluten-free diet and experienced symptom improvement but discontinued due to its restrictive and expensive nature, at which point symptoms resumed. Her bowel movements occur once daily and are soft and formed without blood. She notes intermittent vomiting occurring approximately once a month for the past year, described as sudden regurgitation of food particles without nausea, most recently after eating late and engaging in prayer. Occasional epigastric pain has also been noted. She takes medications for reflux, including famotidine and pantoprazole, which seem effective at controlling symptoms. She denies heartburn, trouble swallowing, or other classic reflux symptoms outside of vomiting/regurgitation episodes. Past medical history includes depression currently managed with medication, thyroid dysfunction on levothyroxine and overweight treated with tirzepatide. Weight loss since initiating Zepbound measures approximately 16 pounds. No unexplained weight loss or anemia. Family history is notable for colon cancer in her mother diagnosed at age 70 in 2021. Patient denies: fever/chills, appetite changes, pyrosis ,dysphasia, uninten tional wt loss or melena/hematochezia. Social hx: -denies ETOH use -denies recreational drug use -non-smoker - family hx as below -denies personal hx of CA -denies significant cardiopulmonary history -tolerated anesthesia in the past without difficulty. [facility] Medical History (Updated 05/02/25 @ 17:00 by Kelly Agrawal CNP) Vomiting Chronic GERD Colon cancer screening IUD (intrauterine device) in place Fibroid Chronic ulcer of leg Venous insufficiency Orthostatic hypotension Hx of migraine headaches Depression with anxiety Hypothyroid Ulcer of lower extremity Factor V deficiency Surgical History History of left breast biopsy H/O skin graft Family History (Updated 05/02/25 @ 13:43 by LEO Valiente) Maternal Aunt Stomach cancer Mother Colon cancer Father Factor V deficiency Paternal Aunt Stomach cancer Social History Household Members Other:: lives with 2 daughters Alcohol intake: never Patient Tobacco Use Status: Never used Tobacco Female Reproductive History Menstrual Age of Menarche: 12 Review of Systems Const Reports as per [facility] ENT Reports as per [facility] Card Reports as per [facility] Resp Reports as per [facility] GI Reports as per [facility] Reports as per [facility] Physical Exam Vital Signs: Last Vital Signs Pulse 64 05/02/25 13:39 BP 126/78 05/02/25 13:39 Pulse Ox 99 05/02/25 13:39 Oxygen Delivery Method Room Air 05/02/25 13:39 BMI result Body Mass Index 29.5 Const General: healthy appearing, no acute distress and well developed Nutritional Appearance: average body habitus Orientation/consciousness: patient oriented x3 HEENT Head: Yes normal to inspection, Yes normocephalic and Yes atraumatic Face and sinus: Yes normal facial exam Eyes General: appearance normal, both eyes and all related structures Neck Neck: Yes normal visual inspection Resp Effort & Inspection: normal respiratory effort, able to speak in complete sentences, no tracheal deviation and symmetric chest movement Auscultation: clear to auscultation bilaterally Cardio Jugular venous distension: no JVD Rate: regular rate Rhythm: regular rhythm Heart sounds: S1 normal heart sound present, S2 normal heart sound present, no gallops and no murmurs GI Inspection: Yes normal to inspection, No distended, Yes obesity and Yes striae Palpation (GI): Soft to palpation, not firm, nontender and No hepatosplenomegaly present Auscultation: normoactive bowel sounds Neuro General: patient oriented x3 Gait exam (Neuro): Normal gait present Psych Appearance: grossly normal Mental Status: mental status grossly normal Speech and movement: Normal speech and movement present Affect: normal affect Attitude: cooperative Thought process: Normal thought process present Thought content: Normal thought content present Insight: Good insight present (Psych) Judgement: Good judgement present (Psych) Assessment & Plan Assessment & Plan (1) Colon cancer screening: Code(s): Z12.11 - Encounter for screening for malignant neoplasm of colon Category: Medical Plan: Due for age based screening. Family hx of mother with CRC Medications: -prescriptions for laxative tablets and MiraLax sent to pharmacy; instructions for Gatorade purchase and clear liquid diet given. - understands weight loss medications and enoxaparin will need to be held days prior to procedure. Nurse to review med holds per protocol. Patient educated on scheduling process, procedure preparation, including avoiding certain foods and ensuring clear liquid intake Advised on necessity for ride post-procedure due to sedation. (2) Chronic GERD: Code(s): K21.9 - Gastro-esophageal reflux disease without esophagitis Category: Medical Plan: Controlled symptoms with pantoprazole and famotidine; episodic vomiting warrants additional evaluation. Additional Testing: Upper endoscopy to assess esophageal and gastric mucosa at colonoscopy timing. Medication Management: Continue pantoprazole and famotidine. Lifestyle Recommendations: Avoid known trigger foods including coffee, desserts, and red meat as much as possible. Encourage the consumption of whole foods rather than gluten-free products to lower costs. Follow-Up: During timing of screening colonoscopy and upper endoscopy. (3) Bloating symptom: Code(s): R14.0 - Abdominal distension (gaseous) Category: Medical Plan: Significant symptom relief noted with gluten-free diet; symptoms recur upon discontinuation and exacerbated by dietary triggers. Additional Testing: None indicated. Lifestyle Recommendations: Reduce dietary trigger foods. Explore less restrictive diets with whole food alternatives. [employer] Closer [employer]ic referral offered but declined. Follow-Up: Monitor progress at next visit. (4) Vomiting: Code(s): R11.10 - Vomiting, unspecified Category: Medical Qualifiers: Nausea presence: without nausea Vomiting type: unspecified Qualified Code(s): R11.11 - Vomiting without nausea Plan: Intermittent. Unclear etiology; differential includes reflux, medication side effects, and gallbladder-related pathology. Additional Testing: Abdominal ultrasound to rule out gallbladder disease. Medication Management: Continue current reflux medications; monitor potential side effects from tirzepatide.. Lifestyle Recommendations: Maintain dietary changes to alleviate symptoms. Avoid late-night eating or lying down after meals. Follow-Up: Post-results review of ultrasound findings during upper endoscop y/colonoscopy visit Plan Follow-up after endoscopy or sooner as needed Time: I spent a total of 50 minutes on the date of encounter which includes: Preparing to see the patient (reviewed previous documentation, test results and medical history) Performing a medically appropriate exam and/or evaluation Ordering medications, tests, and procedures Documenting clinical information in the health record Orders: Orders Lipase Today K21.9 - Gastro-esophageal reflux disease without esophagitis, R11.2 - Nausea with vomiting, unspecified Liver Panel Today E66.9 - Obesity, unspecified, K21.9 - Gastro-esophageal reflu x disease without esophagitis US abdomen complete Today K21.9 - Gastro-esophageal reflux disease without esophagitis, R11.2 - Nausea with vomiting, unspecified Medications: New polyethylene glycol 3350 (Miralax) per colonoscopy prep instructions 238 grams PO ONCE 238 grams 0RF bisacodyl (Dulcolax (bisacodyl)) Take four tablets pre colonoscopy instructions 20 mg (4 x 5 mg) PO ONCE 4 tabs 0RF 1 day pantoprazole 20 mg PO DAILY 90 tabs 1RF Coding Level of Care Code New Pt New Pt Level 4 (51335) Patient Type New Diagnoses Colon cancer screening Z12.11 Chronic GERD K21.9 Bloating symptom R14.0 Vomiting without nausea, unspecified vomiting type R11.11 Nausea presence: without nausea Vomiting type: unspecified
[2025-05-02 13:39] VITALS: BP 126/78; PULSE 64; O2SAT 99; BMI 29.5
--- OUTSIDE RECORDS SUMMARY | 2025-05-02 14:18 | XMS_ITS | Clinical Summary ---
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 Region Laterality Modality Breast Bilateral Mammography 11/23/2024 11:0 0 AM EDT Narrative 11/29/2024 5:11 PM EDT [address] [place] [address] Mammography Report Signed Patient: Shanna Clifford MR#: [id number] : 1975 Acct:[id number] Age/Sex: 49 / F ADM Date: 11/23/24 Loc: HO.MAMMO Attending Dr: Shauna Barroso MD Ordering Physician: Shauna Martínez MD Results: 2Benign Findings Date of Service: 11/23/24 Follow Up: 1 Year From [facility] Mammogram Procedure(s): MM tomosynthesis screening BI Accession Number(s): [id number] cc: Shauna Martínez MD EXAMINATION: MM SCREENING DIGITAL BREAST TOMOSYNTHESIS, BILATERAL CLINICAL INFORMATION: Screening. Asymptomatic. COMPARISON: Mammography: Comparison is made with available priors TECHNIQUE: Digital breast mammography with tomosynthesis is performed in both the craniocaudal and mediolateral oblique views along with computer-aided detection (CAD). FINDINGS: There are scattered areas of fibroglandular density (ACR BI-RADS breast composition Category b). Asymmetry in the upper outer left breast posterior depth is stable back to 2021. There are no significant masses, abnormal calcifications, or other abnormalities. MM/MM tomosynthesis screening BI IMPRESSION: No mammographic evidence of malignancy. ASSESSMENT: BI-RADS BI-RADS 2 - Benign Findings RECOMMENDATION: Routine annual mammography screening. 1 year F/U This examination should not preclude the clinical evaluation of a suspicious palpable abnormality. This patient's information was entered into a reminder system with a target due date for their next mammogram. Electronically signed by: Daniella Segura DO 11/29/2024 05:08 PM EDT RP Dictated By: Daniella Segura DO Signed By: <Electronically signed by Daniella Segura DO in OV> 11/29/24 1708 DD/ 1100 TD/TT: 11/23/24 1125 [employer]: Procedure Note Donotuseinterpreter, Image - 11/29/2024 [facility] [place] [address] Mammography Report Signed Patient: Tiki Clifford#: [id number] : 1975Acct:[id number] Age/Sex: 49 / FADM Date: 11/23/24 Loc: HO.MAMMO Attending Dr: Shauna Barroso MD Ordering Physician: Shauna Martínze MDResults: 2Benign Findings Date of Service: 11/23/24Follow Up: 1 Year From [facility] Mammogram Procedure(s): MM tomosynthesis screening BI Accession Number(s): [id number] cc: Shauna Martínez MD EXAMINATION: MM SCREENING DIGITAL BREAST TOMOSYNTHESIS, BILATERAL CLINICAL INFORMATION: Screening. Asymptomatic. COMPARISON: Mammography: Comparison is made with available priors TECHNIQUE: Digital breast mammography with tomosynthesis is performed in both the craniocaudal and mediolateral oblique views along with computer-aided detection (CAD). FINDINGS: There are scattered areas of fibroglandular density (ACR BI-RADS breast composition Category b). Asymmetry in the upper outer left breast posterior depth is stable back to 2021. There are no significant masses, abnormal calcifications, or other abnormalities. MM/MM tomosynthesis screening BI IMPRESSION: No mammographic evidence of malignancy. ASSESSMENT: BI-RADS BI-RADS 2 - Benign Findings RECOMMENDATION: Routine annual mammography screening. 1 year F/U This examination should not preclude the clinical evaluation of a suspicious palpable abnormality. This patient's information was entered into a reminder system with a target due date for their next mammogram. Electronically signed by: Daniella Segura DO 11/29/2024 05:08 PM EDT Dictated By: Daniella Segura DO Signed By: <Electronically signed by Daniella Segura DO in OV> 11/29/24 1708 DD/ 1100 TD/TT: 11/23/24 1125 [employer]: Shauna Barroso MD IMG BI PROCEDURES Bharath beau Result - Final from Last 3 Months or Most Recently Relevant to Health Maintenance [place] [address] [place] [address] C[facility] MEDICAID STAND ADULT Care Teams Panel Monitor Relationship Specialty Start Date End Date Shauna Martínez MD [address] [place] [address] PCP - General Family Medicine 02/19/21
--- OUTSIDE RECORDS SUMMARY | 2025-05-02 14:18 | XMS_ITS | Encounter Summary ---
Author Organization [employer] Address 75 [facility] 7 [place] [address] Care Team Providers Care Packager Head Name Role Phone Shauna Martínez MD Primary Care Provide r Reason for Visit * Reason Onset Date Comments Prior Auth Prescription 01/10/2025 Encounter Details Date Type Department Care Team ([facility] st Contact Info) Description 01/10/2025 Telephone [facility] MEDICINE [address] [place], [place] [phone] Shauna Martínez MD 230 [place] [address] Prior Auth Prescription Social History Tobacco Use Types Packs/Day Years [...] encounter Miscellaneous Notes * Telephone Encounter - Yunier Addison - 01/10/2025 9:56 AM EDT Tc from pt reporting has been waiting on medication Zepbound contacted pharmacy and was told need PA. documented in this encounter Plan of Treatment Upcoming Encounters Date Type Department Care Team (Late st Contact Info) Description 05/09/2025 10:45 AM EDT Office Visit [facility] MED & PEDS [address] [place] [address] Beltran Rich MD 505 [place] [address] documented as of this encounter Visit Diagnoses Not on filedocumented in this encounter Additional Health Concerns Assessment Noted Time PHQ-9 Depression Total Score: 17 024 10:28 AM EDT documented as of this encounter Care Teams Packager Head Relationship Specialty Start Date End Date Shauna Martínez MD [address] [place] [address] PCP - General Family Medicine 02/19/21 documented as of this encounter
--- OUTSIDE RECORDS SUMMARY | 2025-05-02 14:18 | XMS_ITS | Encounter Summary ---
Author Organization [employer] Address 75 [facility] 7t [place] [address] Care Team Providers Care Healthcare Facility Administrator Name Role Phone Shauna Martínez MD Primary Care Provide r Reason for Visit * Reason Onset Date Comments Med Refill 03/30/2025 Encounter Details Date Type Department Care Team (Late st Contact Info) Description 03/30/2025 Refill [facility] MEDICINE [address] [place], [place] [phone] Shauna Martínez MD [address] [place] [address] Class 1 obesity due to excess calories with serious comorbidity and body mass index (BMI) of 30.0 to 30.9 in adult Social History Tobacco Use Types Packs/Day Years [...] Telephone Encounter - Kim Alegria LPN - 03/30/2025 12:31 PM EDT Please review is patient going to next dose? Last seen 01/24/25. * Telephone Encounter - Ezio Mitchell - 03/30/2025 12:03 PM EDT TC from pt requesting medication refill. Medications needing refill: Zepbound 2.5 MG/0.5ML solution auto-injector To be sent to: [facility] - [place], [place] - [address] [facility] documented in this encounter Plan of Treatment Upcoming Encounters Date Type Department Care Team (Late st Contact Info) Description 05/09/2025 10:45 AM EDT Office Visit [facility] MED & PEDS [address] [place], [place] [phone] Beltran Rich MD [address] [place] [address] documented as of this encounter Visit Diagnoses Diagnosis Class 1 obesity due to excess calories with serious comorbidity and body mass index (BMI) of 30.0 to 30.9 in adult documented in this encounter Additional Health Concerns Assessment Noted Time PHQ-9 Depression Total Score: 17 04/05/ 024 10:28 AM EDT documented as of this encounter Care Teams Healthcare Facility Administrator Relationship Specialty Start Date End Date Shauna Martínez MD [address] [place] [address] PCP - General Family Medicine 02/19/21 documented as of this encounter
--- OUTSIDE RECORDS SUMMARY | 2025-05-02 14:18 | XMS_ITS | Clinical Summary ---
Author Organization [facility] Address 175 [place] [address] Phone Care Team Providers Care Other Wood Processing Machine Operator Name Role Phone Shauna Martínez MD Primary Care Provide r Allergies No known active allergies Medications No known medications Encounters Date Type Department Care Team Description 03/21/2025 8:30 AM EDT Office Visit [facility] [place] [address] [phone] Shahid, Juwan A, DPM Pain in both feet (Primary Dx); Interdigital neuroma of left foot; Equinus contracture of left ankle; Plantar fasciitis 03/14/2025 8:45 AM EDT Office Visit [place] [address] [phone] Shahid, Juwan A, DPM Pain in both feet (Primary Dx); Interdigital neuroma of left foot; Equinus contracture of left ankle; Plantar fasciitis 03/06/2025 10:45 AM EDT Office Visit [place] [address] [phone] Shahid, Juwan A, DPM Pain in both feet (Primary Dx); [...] tendon or ligament (03/06/2025 10:45 AM EDT) Juwan Richter DPM - 03/06/2025 10:45 AM EDT Juwan Key DPM 03/06/2025 12:12 PM Injection tendon or ligament Indications: pain Details: 25 G needle Medications: 0.5 mL lidocaine (PF) 1 %; 40 mg triamcinolone acetonide 40 mg/mL Informed Consent: Laterality: Left us Juwan DASHM IN CLINIC/BEDSIDE ORDERABLE S Final Result * Pap smear (01/14/2018) 01/14/2018 Narrative HISTORICAL TESTING LAB RESULTING AGENCY - 01/19/2018 12:14 PM EDT [id number] THINPREP PAP, IMAGED: NEGATIVE FOR SQUAMOUS INTRAEPITHELIAL [...] Relevant to Health Maintenance Insurance MEDICAID - [place] Care Teams Other Wood Processing Machine Operator Relationship Specialty Start Date End Date Shauna Martínez MD [address] [phone] PCP - General Internal Medicine 01/26/25
--- OUTSIDE RECORDS SUMMARY | 2025-05-02 14:18 | XMS_ITS | Encounter Summary ---
Author Organization [employer] Address 75 [facility] 7t [place] [address] Care Team Providers Care Senior Design Engineer Name Role Phone Shauna Martínez MD Primary Care Provide r Jason Tai RN Unavailable [phone] Reason for Visit * Reason Onset Date Comments Med Refill 03/23/2024 Encounter Details Date Type Department Care Team (Late st Contact Info) Description 03/23/2024 Telephone [facility] MEDICINE 230 [place], [place] [phone] Shauna Martínez MD 230 [place], [place] [phone] Med Refill Social History Tobacco Use Types [...] 11:36 AM EDT Medication was sent to [id number] today. * Telephone Encounter - Ekaterina Rivas - 03/23/2024 11:32 AM EDT TC from pt requesting medication refill. Medications needing refill : levothyroxine (Synthroid, Levoxyl) 88 MCG tablet To be sent to: [facility]/pharmacy #[id number] - [address] documented in this encounter Plan of Treatment Upcoming Encounters Date Type Department Care Team (Late st Contact Info) Description 05/09/2025 10:45 AM EDT Office Visit [facility] CHC MED & PEDS [address] [place], [place] [phone] Beltran Rich MD 505 [place], [place] [phone] documented as of this encounter Visit Diagnoses Not on filedocumented in this encounter Additional Health Concerns Assessment Noted Time PHQ-9 Depression Total Score: 10 11/09/ 024 10:54 AM EST documented as of this encounter Care Teams Senior Design Engineer Relationship Specialty Start Date End Date Shauna Martínez MD [address] [place] [address] PCP - General Family Medicine 02/19/21 Jason Tai RN [address] [place] [address] Emulsification OperatorDrafter Plumbing 10/04/24 01/01/25 documented as of this encounter
--- OUTSIDE RECORDS SUMMARY | 2025-05-02 14:18 | XMS_ITS | Encounter Summary ---
Author Organization [employer] Address [address] [facility] [address] 7t [place] [address] Care Team Providers Care Microbiology Supervisor Name Role Phone Shauna Martínez MD Primary Care Provide r Encounter Details Date Type Department Care Team ([facility] Contact Info) Description 01/16/2025 Orders Only [facility] MEDICINE 230 [place], [place] [phone] Shauna Martínez MD 230 [place] [address] Social History Tobacco Use Types Packs/Day Years [...] Description 05/09/2025 10:45 AM EDT Office Visit [facility] MED & PEDS [address] [place] [address] Beltran Rich MD 505 [place] [address] documented as of this encounter Visit Diagnoses Not on filedocumented in this encounter Additional Health Concerns Assessment Noted Time PHQ-9 Depression Total Score: 17 024 10:28 AM EDT documented as of this encounter Care Teams Microbiology Supervisor Relationship Specialty Start Date End Date Shauna Martínez MD 230 [place] [address] PCP - General Family Medicine 02/19/21 documented as of this encounter
--- OUTSIDE RECORDS SUMMARY | 2025-05-02 14:18 | XMS_ITS | Encounter Summary ---
Author Organization [employer] Address 75 [facility] 7t [place] [address] Care Team Providers Care Spanish Tutor Name Role Phone Shauna Martínez MD Primary Care Provide r Jason Tai RN Unavailable [phone] Reason for Visit * Reason Onset Date Comments Created In Error 06/30/2024 Encounter Details Date Type Department Care Team ([facility] st Contact Info) Description 06/30/2024 Telephone [facility] MEDICINE [address] [place], [place] [phone] Shauna Martínez MD 230 [place], [place] [phone] Created In Error Social History Tobacco Use [...] Description 05/09/2025 10:45 AM EDT Office Visit [facility] MED & PEDS 505 [place] [address] Beltran Rich MD 505 [place] [address] documented as of this encounter Visit Diagnoses Not on filedocumented in this encounter Additional Health Concerns Assessment Noted Time PHQ-9 Depression Total Score: 17 024 10:28 AM EDT documented as of this encounter Care Teams Spanish Tutor Relationship Specialty Start Date End Date Shauna Martínez MD [address] [place] [address] PCP - General Family Medicine 02/19/21 Jason Tai RN [address] [place] [address] Upper MarkerOcc Med Physician 10/04/24 01/01/25 documented as of this encounter
--- OUTSIDE RECORDS SUMMARY | 2025-05-02 14:18 | XMS_ITS | Encounter Summary ---
Author Organization [employer] Address [address] [place] [address] 7 [place] [address] Care Team Providers Care Food Preparer Name Role Phone Shauna Martínez MD Primary Care Provide r Jason Tai RN Unavailable [phone] Encounter Details Date Type Department Care Team ([facility] Contact Info) Description 06/01/2023 Orders Only [facility] MEDICINE 230 [place] [address] ProviderYannick MD Social History Tobacco Use Types [...] 05/09/2025 10:45 AM EDT Office Visit [facility] CHC MED & PEDS 505 [place], [place] [phone] Beltran Rich MD 505 [place], [place] [phone] documented as of this encounter Procedures Procedure [...] documented as of this encounter Care Teams Food Preparer Relationship Specialty Start Date End Date Shauna Martínez MD 230 [place] [address] PCP - General Family Medicine 02/19/21 Jason Tai RN 505 [place] [address] Vamp CreaserSenior Executive Compensation Analyst 10/04/24 01/01/25 documented as of this encounter
--- OUTSIDE RECORDS SUMMARY | 2025-05-02 14:18 | XMS_ITS | Encounter Summary ---
Author Organization [employer] Address [address] [place] [address] 7 [place] [address] Care Team Providers Care Priming Powder Premix Blender Name Role Phone Shauna Martínez MD Primary Care Provide r Jason Tai RN Unavailable [phone] Encounter Details Date Type Department Care Team ([facility] Contact Info) Description 05/12/2023 Orders Only [facility] MEDICINE [address] [place] [address] ProviderYannick MD Social History Tobacco Use Types [...] Description 05/09/2025 10:45 AM EDT Office Visit [facility] CHC MED & PEDS 505 [place], [place] [phone] Beltran Rich MD 505 [place], [place] [phone] documented as of this encounter Procedures Procedure Name Priority Date/Time Associated Diagnosis Comments HM MAMMOGRAPHY Routine 04/30/2023 documented in this encounter Results * Hm Mammography (04/30/2023) Anatomical Region Laterality Modality Other us Historical Provider HEALTH MAINTENANCE Final Result documented in this encounter Visit Diagnoses Not on filedocumented in this encounter Additional Health Concerns Assessment Noted Time PHQ-9 Depression Total Score: 15 023 10:57 AM EDT documented as of this encounter Care Teams Priming Powder Premix Blender Relationship Specialty Start Date End Date Shauna Martínez MD 230 [place] [address] PCP - General Family Medicine 02/19/21 Jason Tai RN 505 [place] [address] Cafeteria CashierPersonnel Coordinator 10/04/24 01/01/25 documented as of this encounter
--- OUTSIDE RECORDS SUMMARY | 2025-05-02 14:19 | XMS_ITS | Encounter Summary ---
Author Organization [facility] Address [address] [place] [address] Care Team Providers Care Weapons Mechanic Name Role Phone Dana Hendrix PA-C Primary Care Provider [phone] Encounter Details Date Type Department Care Team (Late st Contact Info) Description 06/23/2018 Interim Notes Caring [facility] Main [address] [place] [phone] Klaus Hernández MD [phone] [place] [address] Social History Tobacco Use Types [...] on filedocumented in this encounter Care Teams Weapons Mechanic Relationship Specialty Start Date End Date Dana Hendrix PA-C [address] [place] [address] PCP - General Internal Medicine 10/07/19 02/14/21 documented as of this encounter
--- OUTSIDE RECORDS SUMMARY | 2025-05-02 14:19 | XMS_ITS | Encounter Summary ---
Author Organization [facility] Address [address] [place] [address] Care Team Providers Care Supervisory Civil Engineer Name Role Phone Dana Hendrix PA-C Primary Care Provider [phone] Encounter Details Date Type Department Care Team (Late st Contact Info) Description 10/05/2015 / Visits [address] [phone] Deidre Charles, COUNSELOR [address] [place] [address] Social History Tobacco Use Types Packs/Day Years [...] on filedocumented in this encounter Care Teams Supervisory Civil Engineer Relationship Specialty Start Date End Date Dana Hendrix PA-C [address] [place] [address] PCP - General Internal Medicine 10/07/19 02/14/21 documented as of this encounter
--- OUTSIDE RECORDS SUMMARY | 2025-05-02 14:19 | XMS_ITS | Encounter Summary ---
Author Organization [facility] Address [address] [place] [address] Care Team Providers Care Accountant Assistant Name Role Phone Ruma Dana BOYKIN Primary Care Provider [phone] Reason for Visit * Reason Comments Case Management CHRISTIE Assessment Encounter Details Date Type Department Care Team ([facility] Contact Info) Description 06/28/2019 Interim Notes [address] [phone] Gardenia Jenkins, RN [address] [place] [address] Social History Tobacco Use Types Packs/Day Years [...] documented as of this encounter Care Teams Accountant Assistant Relationship Specialty Start Date End Date Dana Hendrix PA-C [address] [place] [address] PCP - General Internal Medicine 10/07/19 02/14/21 documented as of this encounter
--- OUTSIDE RECORDS SUMMARY | 2025-05-02 14:19 | XMS_ITS | Encounter Summary ---
Author Organization [facility] Address [address] [place] [address] Care Team Providers Care Sow Farm Technician Name Role Phone Dana Hendrix PA-C Primary Care Provider [phone] Encounter Details Date Type Department Care Team (Late st Contact Info) Description 10/09/2015 Interim Notes [address] [phone] Deidre Charles, COUNSELOR [address] [place] [address] Social History Tobacco Use Types Packs/Day Years [...] on filedocumented in this encounter Care Teams Sow Farm Technician Relationship Specialty Start Date End Date Dana Hendrix PA-C [address] [place] [address] PCP - General Internal Medicine 10/07/19 02/14/21 documented as of this encounter
--- OUTSIDE RECORDS SUMMARY | 2025-05-02 14:19 | XMS_ITS | Clinical Summary ---
Author Organization [facility] Address [address] [place] [address] Care Team Providers Care Assisted Living Coordinator Name Role Phone Unavailable Primary Care Provider [...] left lower extremity, unspecified chronicity, unspecified vein ([facility]) Dx: I87.2 hx left LE DVT, bilat LE venous insufficiency. Pressure 30-40mmHg. Use during the day, remove at night. Thigh high. Open foot. 2 Each 2 02/25/20 Active compress.stocking, knee,reg,medIndica tions:Vasovagal syncope,Orthostati c hypotension [...] (07/23/2019): 06/05/19 - Seen at ED in [place] for yang to bilateral face, hand, lower ext foot. Given silvadene and ibuprofen. 06/07/19 - Re-evaluated at [facility] ED. Dx: 1st and 2nd degree yang [...] 07/06/19 - WOUND CARE initial visit at [facility] Aspirin allergy 06/10/2019 Plantar fasciitis of right foot 05/30/2019 Overview (05/30/2019): 05/24/19 - seen by podiatry. R heel injection given. 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 If there is continue clinical concern for calf DVT, recommended follow up lower extremity venous ultrasound in 5-7 days. No significant change since 10/06/2016. DUB (dysfunctional uterine bleeding) 04/22/2017 Overview (08/03/2017): [facility] 07/24/17 1. Menorrhagia with regular cycle [...] Would like to refer pt to neurology [facility] Admission 06/23/18- - Orthostatics positive. Treated with fluids and Midodrine 5mg. Discharged on Midodrine 5mg and Gabapentin discontinued. Acquired hypothyroidism 06/26/2015 Immune to varicella 12/05/2014 Overview (03/12/2016): Immune by serologic Immunizations Immunization Administration Dates Next Due Flu, Preservative Free 10/08/2017 Hep B, Adult/Adol (KVSEARR-N-HLQCE/RECOMBIVAX-AD ULT) 02/09/2015,01/04/2015 History Of Varicella 12/05/2014 INFLUENZA, SEASONAL, INJECTABLE, PRESERVATIVE FR EE 12/05/2014 MMR (MMR II/Priorix) 01/04/2015,12/05/2014 Moderna COVID-19 Vaccine, re d cap blue label, 12+ Primary Series 02/11/2021,01/10/2021 TDAP 12/05/2014 Td (adult), 5 Lf tetanus tox oid (Tenivac), preservative free 01/04/2015 Td (adult),2 Lf tetanus toxo id (TDVAX), preservative free 06/05/2019 Social History Tobacco Use Types [...] 68 11/08/2020 10:17 AM EST Temperature 37.4 C (99.3 F) 11/08/2020 10:17 AM EST Respiratory Rate 16 11/08/2020 10:17 AM EST Oxygen Saturation 97% 11/08/2020 10:17 AM EST Inhaled Oxygen Concentration - - Weight 74.8 kg (165 lb) 11/08/2020 10:17 AM EST Height 154.9 cm (5' 1 ) 11/08/2020 10:17 AM EST Body Mass Index 31.18 11/08/2020 10:17 AM EST Plan of Treatment Health Maintenance Due Date Last Done Comments Anxiety Screening 1975 Hepatitis C Screening 1975 Tobacco Screening 1975 Imm-Hepatitis B (3 of 3 - 19 + 3-dose series) 07/06/2015 02/09/2015, 01/04/2015 Breast Cancer Screening (Mammogram) 2016 Annual Wellness (Adult): Indicated (All Coverage) 07/22/2020 07/22/2019, 10/08/2017, 03/07/2016, Additional history exists Relationship Safety Screening/Counseling 01/31/2021 02/01/2020 TSH Monitoring 08/08/2021 08/08/2020, 02/05, 11/21/2019, Additional history exists CT Colonography 2021 Colonoscopy 2021 Colorectal Cancer Screening 2021 FIT/gFOBT 2021 Fecal DNA 2021 Flexible Sigmoidoscopy 2021 Hypertension Screening (#1) 11/08/2021 Lipid Screening 11/08/2021 11/08/2020, 08/30/2018 Diabetes Screening 12/11/2021 12/11/2020, 0 11/08/2020, 02/23/2020, Additional history exists Pap Smear 07/27/2022 07/27/2019 [id number] ( season) 2024 021, 01/10/2021 Cervical Cancer [...] EDT) GLUCOSE 107 65 - 139 mg/dL [facility] Comment: Non-fasting reference interval UREA NITROGEN (BUN) 12 7 - 25 mg/dL [facility] CREATININE (blood) 0.58 0.50 - 1.10 mg/dL [facility] GFR ESTIMATED 112 > OR = 60 mL/min/1 .73m2 [facility] EGFR 130 > OR = 60 mL/min/1 .73m2 [facility] BUN/CREATININE RATIO NOT APPLICABLE 6 - 22 [facility] SODIUM 139 135 - 146 mmol/L [facility] POTASSIUM 3.9 3.5 - 5.3 mmol/L [facility] CHLORIDE 104 98 - 110 mmol/L [facility] CARBON DIOXIDE 28 20 - 32 mmol/L [facility] CALCIUM 9.3 8.6 - 10.2 mg/dL [facility] PROTEIN, TOTAL 6.8 6.1 - 8.1 g/dL [facility] ALBUMIN 4.2 3.6 - 5.1 g/dL [facility] GLOBULIN 2.6 1.9 - 3.7 g/dL (calc) [facility] ALBUMIN/GLOBUL IN RATIO 1.6 1.0 - 2.5 (calc) [facility] BILIRUBIN, TOTAL 0.4 0.2 - 1.2 mg/dL [facility] ALKALINE PHOSPHATASE 55 31 - 125 U/L [facility] AST 18 10 - 30 U/L [facility] ALT 18 6 - 29 U/L [facility] Blood Blood / Unknown 12/11/2020 2 :23 PM EDT 12/11/2020 2:24 PM EDT Narrative [facility] - 12/12/2020 2:51 AM EDT FASTING:NO Dana Hendrix PA-C LAB - BLOOD DRAW Final Result [facility] [address] [address], [facility] [address] [address] * (ABNORMAL) LIPID PANEL (11/08/2020 10:56 AM EST) CHOLESTEROL 196 0 - 200 mg/dL [facility] TRIGLYCERIDES 45 0 - 150 mg/dL [facility] HDL CHOLESTEROL 69 >40 mg/dL [facility] LDL CALCULATED 118(H) 0 - 100 mg/dL [facility] TC-HDLC RATIO 2.8 0 - 4.4 mg/dL [facility] Blood Blood / Unknown 11/08/2020 1 0:56 AM EST 11/08/2020 4:39 PM EST Narrative [facility] - 11/08/2020 7:21 PM EST [employer], [place] [address] Operations Logistics Analyst - Shauna Ralph MD PT ID [id number] ORD# [id number] Dana Hendrix PA-C LAB - BLOOD DRAW Edited Result - [place] [id number], * THYROID CASCADE PROFILE (08/08/2020 9:56 AM EST) TSH CASCADE 2.11 0.40 - 4.00 uIU/ml [facility] 08/08/2020 9:56 AM EST 08/08/2020 10:21 AM EST Narrative [facility] - 08/08/2020 1:51 PM EST [employer] [address] Operations Logistics Analyst - Shauna Ralph MD PT ID [id number] ORD# [id number] Dana Hendrix PA-C LAB - BLOOD DRAW [place] [id number], * PAP SMEAR W/HPV (07/27/2019 4:41 PM EST) PAP SMEAR INTERPRETATION NORMAL NORMAL [facility] HPV (HUMAN PAPILLOMA) NEGATIVE NEGATIVE [facility] HPV TYPE 16 NEGATIVE NEGATIVE [facility] HPV TYPE 18 NEGATIVE NEGATIVE [facility] Specimen from uterine cervix (specimen) Impressions [facility] - 07/27/2019 4:41 PM EST ThinPrep Pap Negative for squamous intraepithelial lesion and malignancy HPV Negative Provider [facility] - PATHOLOGY AND CYTOLOGY AMB ULATORY Final Result Performing Organization Address City/[facility]/ZIP Co de Phone Number [facility] [address] [place] [address], * HIV-1 & HIV-2 ANTIBODIES (12/05/2014 11:35 AM EDT) HIV 1 AND 2 ANTIBODY SCREEN NEGATIVE NEGATIVE [facility] Blood specimen (specimen) Blood / Unknown 12/05/2014 11:35 AM EDT 12/05/2014 12:53 PM EDT Narrative [facility] - 12/05/2014 10:13 PM EDT [facility] [address] [place] [address] PT ID [id number] ORD# [id number] Julia Stewart NP LAB - BLOOD DRAW Final Result [facility] [address] [place] [address], from Last 3 Months or Most Recently Relevant to Health Maintenance Insurance [facility] NET DENTAL [facility] BCBS D[place] MEDICA[place] [address]ENTAL [address]
== END 2025-05-02 14:21 | disposition home or self-care (01) ==
LOC: HO.HGI 13:25
PROVIDERS: PCP Internal Medicine; Visit Provider Nurse Practitioner Family
DX: Z01.818 Encounter for other preprocedural examination (principal); Z12.11 Encounter for screening for malignant neoplasm of colon; K21.9 Gastro-esophageal reflux disease without esophagitis; R14.0 Abdominal distension (gaseous); R11.11 Vomiting without nausea
CPT/HCPCS: 99204

== ENCOUNTER → 2025-05-02 13:24 | Outpatient (BNVA) | payer MEDICAID, SELFPAY | PROVIDERS: PCP Internal Medicine; Visit Provider Nurse Practitioner Family | DX: Z12.11 Encounter for screening for malignant neoplasm of colon (principal); K21.9 Gastro-esophageal reflux disease without esophagitis; R14.0 Abdominal distension (gaseous); R11.11 Vomiting without nausea | CPT/HCPCS: 99212 ==

== ENCOUNTER 2025-06-06 13:44 | Outpatient (REF) | payer MEDICAID, SELFPAY ==
--- NOTE | ~2025-06-06 | US_ITS ---
CLINICAL HISTORY: N93.9 - Abnormal uterine and vaginal bleeding, unspecified US pelvis transabdominal and transvaginal with Doppler Comparison: US/TN/SR - US PELVIS TRANSABDOMINAL AND TRANSVAGINAL - 12/02/23 10:59 EDT Findings: Transabdominal scanning performed for overall anatomy. Transvaginal scanning performed for additional detail. Uterus is 8.7 cm length. Previously noted fibroids are not seen. Endometrium 2 mm thickness. IUD. Ovaries are not visualized. No free fluid. IMPRESSION: The thickness of the endometrium is within normal limits. IUD in place. Ovaries are not seen. This document has been electronically signed by: Ruddy Bardales MD on 06/07/2025 14:27:45
--- OUTSIDE RECORDS SUMMARY | 2025-06-06 15:02 | XMS_ITS | Encounter Summary ---
Author Organization [employer] Address [address] [facility] 7t [place] [address] Care Team Providers Care Mica Layer Name Role Phone Shauna Martínez MD Primary Care Provide r Jason Tai RN Unavailable [phone] Reason for Visit * Reason Onset Date Comments Med Refill 03/23/2024 Encounter Details Date Type Department Care Team (Late st Contact Info) Description 03/23/2024 Telephone [facility] MEDICINE [address] [place], [place] [phone] Shauna Martínez MD [address] [place], [place] [phone] Med Refill Social History Tobacco Use Types [...] 11:36 AM EDT Medication was sent to [facility] #[id number] today. * Telephone Encounter - Ekaterina Rivas - 03/23/2024 11:32 AM EDT TC from pt requesting medication refill. Medications needing refill : levothyroxine (Synthroid, Levoxyl) 88 MCG tablet To be sent to: [facility]/pharmacy #[id number] - [place], [place] - [address] [place] [address] documented in this encounter Plan of Treatment Not on file documented as of this encounter Visit Diagnoses Not on filedocumented in this encounter Additional Health Concerns Assessment Noted Time PHQ-9 Depression Total Score: 10 024 10:54 AM EST documented as of this encounter Care Teams Mica Layer Relationship Specialty Start Date End Date Shauna Martínez MD [address] [place] [address] PCP - General Family Medicine 02/19/21 Jason Tai RN [address] [place] [address] Wash OperatorSteam Pipe Fitter 10/04/24 01/01/25 documented as of this encounter
--- OUTSIDE RECORDS SUMMARY | 2025-06-06 15:02 | XMS_ITS | Encounter Summary ---
Author Organization [employer] Address [address] [facility] 7t [place] [address] Care Team Providers Care Cement Gun Operator Name Role Phone Shauna Martínez MD Primary Care Provide r Jason Tai RN Unavailable [phone] Reason for Visit * Reason Onset Date Comments Created In Error 06/30/2024 Encounter Details Date Type Department Care Team ([facility] st Contact Info) Description 06/30/[address] [facility] MEDICINE [address] [place], [place] [phone] Shauna Martínez MD [address] [place], [place] [phone] Created In Error Social History Tobacco Use [...] documented as of this encounter Care Teams Cement Gun Operator Relationship Specialty Start Date End Date Shauna Martínez MD [address] [place] [address] PCP - General Family Medicine 02/19/21 Jason Tai RN [address] [place] [id number] LifeguardBusiness Controller 10/04/24 01/01/25 documented as of this encounter
--- OUTSIDE RECORDS SUMMARY | 2025-06-06 15:02 | XMS_ITS | Encounter Summary ---
Author Organization [employer] Address [address] [facility] 7 [place] [address] Care Team Providers Care Die Sinker Apprentice Name Role Phone Shauna Martínez MD Primary Care Provide r Reason for Visit * Reason Onset Date Comments Prior Auth Prescription 01/10/2025 Encounter Details Date Type Department Care Team ([facility] st Contact Info) Description 01/10/2025 Telephone [facility] MEDICINE [address] [place], [place] [phone] Shauna Martínez MD [address] [place] [address] Prior Auth Prescription Social History Tobacco Use [...] as of this encounter Care Teams Die Sinker Apprentice Relationship Specialty Start Date End Date Shauna Martínez MD [address] [place] [address] PCP - General Family Medicine 02/19/21 documented as of this encounter
--- OUTSIDE RECORDS SUMMARY | 2025-06-06 15:02 | XMS_ITS | Encounter Summary ---
Author Organization [employer] Address [address] [facility] [address] [place] [address] Care Team Providers Care Dental Office Assistant Name Role Phone Shauna Martínez MD Primary Care Provide r Encounter Details Date Type Department Care Team ([facility] Contact Info) Description 01/16/2025 Orders Only [facility] MEDICINE [address] [place], [place] [phone] Shauna Martínez MD [address] [place] [address] Social History Tobacco Use Types Packs/Day Years [...] documented as of this encounter Care Teams Dental Office Assistant Relationship Specialty Start Date End Date Shauna Martínez MD [address] [place] [address] PCP - General Family Medicine 02/19/21 documented as of this encounter
--- OUTSIDE RECORDS SUMMARY | 2025-06-06 15:02 | XMS_ITS | Clinical Summary ---
Author Organization [address] [facility] Address [address] [place] [address] Phone Care Team Providers Care Injection Molding Operator Name Role Phone Shauna Martínez MD Primary Care Provide r Allergies No known active allergies Medications No known medications Encounters Date Type Department Care Team Description 03/21/2025 8:30 AM EDT Office Visit Orthopedic [place] [address] [phone] Shahid, Juwan A, DPM Pain in both feet (Primary Dx); Interdigital neuroma of left foot; Equinus contracture of left ankle; Plantar fasciitis 03/14/2025 8:45 AM EDT Office Visit [place] [address] [phone] Shahid, Juwan A, DPM Pain in both feet (Primary Dx); Interdigital neuroma of left foot; Equinus contracture of left ankle; Plantar fasciitis 03/06/2025 10:45 AM EDT Office Visit [place] [address] [phone] Shahid, Juwan A, DPM Pain in both [...] 08/09/2022 Social Influencers of Health Screening 08/09/2022 Depression Screening 09/07/2024 COVID-19 Vaccine (3 - 2024-2 6 season) 2025 02/11/2021, 01/10/2021 Influenza Vaccine (#1) 2025 8, 12/05/2014 Cholesterol [...] RESULTING AGENCY - 01/19/2018 12:14 PM EDT [id number] THINPREP PAP, IMAGED: NEGATIVE FOR SQUAMOUS INTRAEPITHELIAL [...] Relevant to Health Maintenance Insurance [place] Care Teams Injection Molding Operator Relationship Specialty Start Date End Date Shauna Martínez MD [address] [phone] PCP - General Internal Medicine 01/26/25
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
--- OUTSIDE RECORDS SUMMARY | 2025-06-06 15:02 | XMS_ITS | Encounter Summary ---
Author Organization [employer] Address [address] [facility] 7t [place] [address] Care Team Providers Care Export Sales Assistant Name Role Phone Shauna Martínez MD Primary Care Provide r Reason for Visit * Reason Onset Date Comments Med Refill 03/30/2025 Encounter Details Date Type Department Care Team (Late st Contact Info) Description 03/30/2025 Refill [facility] [address] [place], [place] [phone] Shauna Martínez MD [address] [place] [address] Class 1 obesity due to excess calories [...] MG/0.5ML solution auto-injector To be sent to: [facility] [place], [place] [facility] [address] [facility] documented in this encounter Plan of Treatment [...] documented as of this encounter Care Teams Export Sales Assistant Relationship Specialty Start Date End Date Shauna Martínez MD [address] [place] [address] PCP - General Family Medicine 02/19/21 documented as of this encounter
--- OUTSIDE RECORDS SUMMARY | 2025-06-06 15:02 | XMS_ITS | Encounter Summary ---
Author Organization [employer] Address [address] [facility] 7t [place] [address] Care Team Providers Care Landscaping And Groundskeeping Laborer Name Role Phone Shauna Martínez MD Primary Care Provide r Jason Tai RN Unavailable [phone] Encounter Details Date Type Department Care Team ([facility] st Contact Info) Description 06/01/2023 Orders Only [facility]INE [address] [place] [address] Provider, Historical, Social History Tobacco Use Types Packs/Day Years [...] on file documented as of this encounter Procedures Procedure Name Priority Date/Time Associated Diagnosis Comments HM PAP/HPV Routine 05/06/2021 documented in this encounter Results * Hm Pap Smear (05/06/2021) us Historical Provider HEALTH MAINTENANCE Final Result documented in this encounter Visit Diagnoses Not on filedocumented in this encounter Additional Health Concerns Assessment Noted Time PHQ-9 Depression Total Score: 15 05/24/2 023 10:57 AM EDT documented as of this encounter Care Teams Landscaping And Groundskeeping Laborer Relationship Specialty Start Date End Date Shauna Martínez MD [address] [place] [address] PCP - General Family Medicine 02/19/21 Jason Tai RN [address] [place] [address] Paper Making Machine OperatorMagnetic Tape Typewriter Operator 10/04/24 01/01/25 documented as of this encounter
--- OUTSIDE RECORDS SUMMARY | 2025-06-06 15:02 | XMS_ITS | Encounter Summary ---
Author Organization [employer] Address [address] [place] [address] 7t [place] [address] Care Team Providers Care Medical Office Supervisor Name Role Phone Shauna Martínez MD Primary Care Provide r Jason Tai RN Unavailable [phone] Encounter Details Date Type Department Care Team ([facility] st Contact Info) Description 05/12/2023 Orders Only [facility] MEDICINE [address] [place] [address] Provider, Historical, Social History Tobacco Use Types [...] documented as of this encounter Care Teams Medical Office Supervisor Relationship Specialty Start Date End Date Shauna Martínez MD [address] [place] [address] PCP - General Family Medicine 02/19/21 Jason Tai RN [address] [place] [phone] Center Hole ReamerDirector Marketing 10/04/24 01/01/25 documented as of this encounter
== END 2025-06-06 13:45 | disposition home or self-care (01) ==
LOC: HO.US 13:44
PROVIDERS: PCP Internal Medicine; Visit Provider Advanced Practice Midwife
DX: Z30.431 Encounter for routine checking of intrauterine contraceptive device (principal); N93.9 Abnormal uterine and vaginal bleeding, unspecified; D21.9 Benign neoplasm of connective and other soft tissue, unspecified
CPT/HCPCS: 76830; 76856

== ENCOUNTER → 2025-06-06 14:01 | Outpatient (BNV) | payer MEDICAID, SELFPAY | PROVIDERS: PCP Internal Medicine; Visit Provider Nuclear Medicine | DX: N93.9 Abnormal uterine and vaginal bleeding, unspecified (principal) | CPT/HCPCS: 76830; 76856 ==

== ENCOUNTER 2025-06-27 | Outpatient (REF) | payer MEDICAID, SELFPAY ==
--- OUTSIDE RECORDS SUMMARY | 2025-08-01 11:48 | XMS_ITS | Encounter Summary ---
Author Organization [employer] Address [address] [place] [address] 7t [place] [address] Care Team Providers Care Instrument Man Name Role Phone Shauna Martínez MD Primary Care Provide r Jason Tai RN Unavailable [phone] Encounter Details Date Type Department Care Team ([facility] st Contact Info) Description 05/12/2023 Orders Only [facility] MEDICINE [address] [place] [address] Provider, Historical, Social History Tobacco Use Types [...] documented as of this encounter Care Teams Instrument Man Relationship Specialty Start Date End Date Shauna Martínez MD [address] [place] [address] PCP - General Family Medicine 02/19/21 Jason Tai RN [address] [place] [phone] Head Turbine OperatorManager Application 10/04/24 01/01/25 documented as of this encounter
--- OUTSIDE RECORDS SUMMARY | 2025-08-01 11:48 | XMS_ITS | Encounter Summary ---
Author Organization [employer] Address [address] [facility] 7t [place] [address] Care Team Providers Care Well Service Derrick Worker Name Role Phone Shauna Martínez MD Primary Care Provide r Jason Tai RN Unavailable [phone] Encounter Details Date Type Department Care Team ([facility] st Contact Info) Description 06/01/2023 Orders Only [facility] MEDICINE [address] [place] [address] Provider, Historical, Social History Tobacco Use Types [...] documented as of this encounter Care Teams Well Service Derrick Worker Relationship Specialty Start Date End Date Shauna Martínez MD [address] [place] [address] PCP - General Family Medicine 02/19/21 Jason Tai RN [address] [place] [address] Electronic Integrated Systems MechanicConservator Artifacts 10/04/24 01/01/25 documented as of this encounter
--- OUTSIDE RECORDS SUMMARY | 2025-08-01 11:48 | XMS_ITS | Clinical Summary ---
Author Organization [address] [facility] Address [address] [place] [address] Phone Care Team Providers Care Movement Assembly Final Inspector Name Role Phone Shauna Martínez MD Primary Care Provide r Allergies No known active allergies Medications No known medications Encounters Date Type Department Care Team Description 06/28/2025 10:45 AM EDT Office Visit Orthopedic Surgery [facility] [address] [phone] Juwan Key DPM Pain in both feet (Primary Dx); [...] Last Done Comments Breast Cancer Screening 1975 Colorectal Cancer Screening: Colonoscopy 1975 Hepatitis B Vaccines (3 of 3 - 19+ 3-dose series) 07/06/2015 02/09/2015, 01/04/2015 Hepatitis C Screening 08/09/2022 Social Influencers of Health Screening 08/09/2022 Depression Screening 09/07/2024 COVID-19 Vaccine (3 - 2024-2 6 season) 2025 02/11/2021, 01/10/2021 Influenza Vaccine (#1) 2025 8, 12/05/2014 Cholesterol Screening (Lipid Panel) 11/08/2025 11/08/2020, 11/08/2020, 08/30/2018 Cervical Cancer Screening: P ap Smear 04/18/2028 04/18/2025, 01/14/2018 DTaP,Tdap,and Td Vaccines (4 - Td or Tdap) 06/05/2029 06/05/2019, 01/04/2015, 12/05/2014 RSV Immunization Adult Patients (1 - 1-dose 75+ series) 2051 HIV Screening Completed 12/05/2014 Varicella Vaccines Aged [...] Diagnosis Comments INJECTION TENDON OR LIGAMENT Routine 06/28/2025 10:45 AM EDT Plantar fasciitis PAP SMEAR Routine 01/14/2018 from Last 3 Months or Most Recently Relevant to Health Maintenance Results * Injection tendon or ligament (06/28/2025 10:45 AM EDT) Narrative Juwan Key DPM - 06/28/2025 10:45 AM EDT Juwan Key DPM 06/28/2025 12:25 PM Injection tendon or ligament Indications: pain Details: 25 G needle Medications: 0.5 mL lidocaine (PF) 1 %; 40 mg triamcinolone acetonide 40 mg/mL Informed Consent: Laterality: Left us Juwan Key DPM IN CLINIC/BEDSIDE ORDERABLE S Final Result * Pap smear (01/14/2018) 01/14/2018 Narrative HISTORICAL TESTING LAB RESULTING AGENCY - 01/19/2018 12:14 PM EDT [id number] THINPREP PAP, IMAGED: NEGATIVE FOR SQUAMOUS INTRAEPITHELIAL [...] to Health Maintenance Insurance MEDICAID - [place] Member Subscriber Plan / Payer (Ef fective 2025-Present) Name:SHANNA CLIFFORD Relation to Subscriber:Self Name:Shanna Clifford Payer ID:[id number] Group ID:Not on file Type:Not on file Address: [facility] ATTN:[employer] [address] [place] [address] Care Teams Movement Assembly Final Inspector Relationship Specialty Start Date End Date Shauna Martínez MD [address] [place] [phone] PCP - General Internal Medicine 01/26/25
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
--- OUTSIDE RECORDS SUMMARY | 2025-08-01 11:48 | XMS_ITS | Encounter Summary ---
Author Organization [employer] Address [address] [facility] 7t [place] [address] Care Team Providers Care Forensic Science Technician Name Role Phone Shauna Martínez MD Primary Care Provide r Jason Tai RN Unavailable [phone] Reason for Visit * Reason Onset Date Comments Created In Error 06/30/2024 Encounter Details Date Type Department Care Team ([facility] st Contact Info) Description 06/30/[address] [facility] [address] [place], [place] [phone] Shauna Martínez MD [address] [place], [place] [phone] Created In Error Social History Tobacco Use [...] documented as of this encounter Care Teams Forensic Science Technician Relationship Specialty Start Date End Date Shauna Martínez MD [address] [place] [address] PCP - General Family Medicine 02/19/21 Jason Tai RN [address] [place] [phone] Tax Audit ManagerPublic Finance Specialist 10/04/24 01/01/25 documented as of this encounter
--- OUTSIDE RECORDS SUMMARY | 2025-08-01 11:48 | XMS_ITS | Encounter Summary ---
Author Organization [employer] Address [address] [facility] 7t [place] [address] Care Team Providers Care Harvesting Contractor Name Role Phone Shauna Martínez MD Primary Care Provide r Reason for Visit * Reason Onset Date Comments Med Refill 03/30/2025 Encounter Details Date Type Department Care Team (Late st Contact Info) Description 03/30/2025 Refill [facility] [address] [place], [place] [phone] Shauna Martínez MD [address] [place] [address] Class 1 obesity due to excess calories [...] MG/0.5ML solution auto-injector To be sent to: [facility] - [place], [place] - [address] [facility] documented in this encounter Plan of Treatment [...] documented as of this encounter Care Teams Harvesting Contractor Relationship Specialty Start Date End Date Shauna Martínez MD [address] [place] [address] PCP - General Family Medicine 02/19/21 documented as of this encounter
--- OUTSIDE RECORDS SUMMARY | 2025-08-01 11:48 | XMS_ITS | Encounter Summary ---
Author Organization [employer] Address [address] [facility] [address] 7t [place] [address] Care Team Providers Care Manager Sharepoint Name Role Phone Shauna Martínez MD Primary Care Provide r Encounter Details Date Type Department Care Team ([facility] Contact Info) Description 01/16/2025 Orders Only [facility] [address] [place], [place] [phone] Shauna Martínez MD [address] [place] [address] Social History Tobacco Use Types Packs/Day Years [...] documented as of this encounter Care Teams Manager Sharepoint Relationship Specialty Start Date End Date Shauna Martínez MD [address] [place] [phone] PCP - General Family Medicine 02/19/21 documented as of this encounter
--- OUTSIDE RECORDS SUMMARY | 2025-08-01 11:48 | XMS_ITS | Encounter Summary ---
Author Organization [employer] Address [address] [facility] 7 [place] [address] Care Team Providers Care Automation Qa Tester Name Role Phone Shauna Martínez MD Primary Care Provide r Reason for Visit * Reason Onset Date Comments Prior Auth Prescription 01/10/2025 Encounter Details Date Type Department Care Team ([facility] st Contact Info) Description 01/10/2025 Telephone [facility] [address] [place], [place] [phone] Shauna Martínez MD [address] [place] [address] Prior Auth Prescription Social History Tobacco Use [...] documented as of this encounter Care Teams Automation Qa Tester Relationship Specialty Start Date End Date Shauna Martínez MD [address] [place] [address] PCP - General Family Medicine 02/19/21 documented as of this encounter
--- OUTSIDE RECORDS SUMMARY | 2025-08-01 11:48 | XMS_ITS | Encounter Summary ---
Author Organization [employer] Address [address] [facility] 7t [place] [address] Care Team Providers Care Shellfish Meat Separator Operator Name Role Phone Shauna Martínez MD Primary Care Provide r Jason Tai RN Unavailable [phone] Reason for Visit * Reason Onset Date Comments Med Refill 03/23/2024 Encounter Details Date Type Department Care Team (Late st Contact Info) Description 03/23/2024 Telephone [facility] [address] [place], [place] [phone] Shauna Martínez MD [address] [place], [place] [phone] Med Refill Social History Tobacco Use Types [...] 11:36 AM EDT Medication was sent to [facility][id number] today. * Telephone Encounter - Ekaterina Rivas - 03/23/2024 11:32 AM EDT TC from pt requesting medication refill. Medications needing refill : levothyroxine (Synthroid, Levoxyl) 88 MCG tablet To be sent to: [facility]acy #[id number] - [place], [place] - [address] [place] [address] documented in this encounter Plan of Treatment Not on file documented as of this encounter Visit Diagnoses Not on filedocumented in this encounter Additional Health Concerns Assessment Noted Time PHQ-9 Depression Total Score: 10 024 10:54 AM EST documented as of this encounter Care Teams Shellfish Meat Separator Operator Relationship Specialty Start Date End Date Shauna Martínez MD [address] [place] [address] PCP - General Family Medicine 02/19/21 Jason Tai RN [address] [place] [phone] Executive Secretary Social WelfareSkin Lap Bonder 10/04/24 01/01/25 documented as of this encounter
== END 2025-06-27 00:01 ==
LOC: CF
PROVIDERS: PCP Internal Medicine; Visit Provider Advanced Practice Midwife
DX: Z71.2 Person consulting for explanation of examination or test findings (principal); Z32.02 Encounter for pregnancy test, result negative; Z97.5 Presence of (intrauterine) contraceptive device
CPT/HCPCS: 81025; 99212

== ENCOUNTER 2025-06-27 08:36 | Outpatient (AMB) | payer MEDICAID, SELFPAY ==
--- NOTE | 2025-06-27 08:37 | MHC.OFFVIS ---
Intake Visit Reasons: Ultra sound follow up District Engineer Required: No Radio Board Operator Announcer: Radio Board Operator Announcer Present Allergies aspirin Allergy (Unknown, Verified 06/27/25 08:39) bleeding lidocaine patch Allergy (Intermediate, Uncoded 05/02/25 13:35) Rash Is last menstrual period known: Yes HPI Comments Details: Patient is here for ultrasound follow up results, history of Lilita IUD placed in 2023, had 1 episode of bleeding lightly for approximately 4 weeks over 2 months ago and has not reoccurred. Current Lovenox user. She reports having hot flashes. [facility] Medical History Vomiting Chronic GERD Colon cancer screening IUD (intrauterine device) in place Fibroid Chronic ulcer of leg Venous insufficiency Orthostatic hypotension Hx of migraine headaches Depression with anxiety Hypothyroid Ulcer of lower extremity Factor V deficiency Surgical History History of left breast biopsy H/O skin graft Family History Maternal Aunt Stomach cancer Mother Colon cancer Father Factor V deficiency Paternal Aunt Stomach cancer Social History Household Members Other:: lives with 2 daughters Alcohol intake: never Patient Tobacco Use Status: Never used Tobacco Female Reproductive History Menstrual Age of Menarche: 12 Review of Systems Const All systems reviewed & are unremarkable except as noted in HPI and below Endo Reports no additional complaints Physical Exam Const General: cooperative, healthy appearing and no acute distress Psych Appearance: well kempt Attitude: cooperative Thought process: Normal thought process present Results AMB Test Urine AMB Test Urine Negative Last Edit by GABY Valenzuela on 06/27/25 08:51 Results Reviewed Results Reviewed: [address] [address] Ultrasound Report Signed Patient: Shanna Clifford MR#: [id number] : 1975 Acct:[id number] Age/Sex: 49 / F ADM Date: 06/06/25 Loc: HO.US Attending Dr: Shereen Horn CNM Ordering Physician: Shereen Horn CNM Date of Service: 06/06/25 Procedure(s): US pelvic and transvaginal Accession Number(s): [id number] cc: Shauna Martínez MD; Shereen Horn CNM~ Reason for Exam: N93.9 - Abnormal uterine and vaginal bleeding, unspecified CLINICAL HISTORY: N93.9 - Abnormal uterine and vaginal bleeding, unspecified US pelvis transabdominal and transvaginal with Doppler Comparison: US/TX/SR - US PELVIS TRANSABDOMINAL AND TRANSVAGINAL - 12/02/23 10:59 EDT Findings: Transabdominal scanning performed for overall anatomy. Transvaginal scanning performed for additional detail. Uterus is 8.7 cm length. Previously noted fibroids are not seen. Endometrium 2 mm thickness. IUD. Ovaries are not visualized. No free fluid. IMPRESSION: The thickness of the endometrium is within normal limits. IUD in place. Ovaries are not seen. This document has been electronically signed by: Ruddy Bradales MD on 06/07/2025 14:27:45 Dictated By: Ruddy Bardales MD Signed By: <Electronically signed by Ruddy Bardales MD in OV> 06/07/25 1428 DD/ TD/TT: 06/07/25 1427 Credit Union Examiner: Assessment & Plan Assessment & Plan (1) Encounter to discuss test results: Code(s): Z71.2 - Person consulting for explanation of examination or test findings Plan Discussed: IMPRESSION: The thickness of the endometrium is within normal limits. IUD in place. Ovaries are not seen. Menopause verses perimenopause. Menopause is definitive of 1 year of no menses or 12 months in succession. Report any abnormal uterine bleeding in example prolonged episodes, or short intervals less than 24 days. Perimenopausal changes. The patient expressed understanding and agreement with the plan of care. All of her questions and concerns were addressed to the best of my ability. Annual exam scheduled April 2026. This note is constructed using voice recognition software. While every effort has been made to ensure accuracy, surgical services assistant errors may have been included. Orders: Orders AMB HCG Urine Test Today Z32.02 - Encounter for test, result negative Coding Level of Care Code Est Pt Level 3 (21972) Diagnoses Encounter to discuss test results Z71.2
--- OUTSIDE RECORDS SUMMARY | 2025-06-27 08:53 | XMS_ITS | Encounter Summary ---
Author Organization [employer] Address [address] [facility] 7 [place] [address] Care Team Providers Care Rn Appeals Name Role Phone Shauna Martínez MD Primary Care Provide r Reason for Visit * Reason Onset Date Comments Prior Auth Prescription 01/10/2025 Encounter Details Date Type Department Care Team ([facility] st Contact Info) Description 01/10/2025 Telephone [facility]INE [address] [place], [place] [phone] Shauna Martínez MD [address] [place] [address] Prior Auth Prescription Social History Tobacco Use [...] documented as of this encounter Care Teams Rn Appeals Relationship Specialty Start Date End Date Shauna Martínez MD [address] [place] [address] PCP - General Family Medicine 02/19/21 documented as of this encounter
--- OUTSIDE RECORDS SUMMARY | 2025-06-27 08:53 | XMS_ITS | Encounter Summary ---
Author Organization [employer] Address [address] [facility] 7t [place] [address] Care Team Providers Care Director Of Business Services Name Role Phone Shauna Martínez MD Primary Care Provide r Jason Tai RN Unavailable [phone] Encounter Details Date Type Department Care Team ([facility] st Contact Info) Description 06/01/2023 Orders Only [facility] MED[facility]INE [address] [place] [address] Provider, Historical, Social History Tobacco Use Types [...] documented as of this encounter Care Teams Director Of Business Services Relationship Specialty Start Date End Date Shauna Martínez MD [address] [place] [address] PCP - General Family Medicine 02/19/21 Jason Tai RN [address] [place] [address] Overhauler HelperRemelt Sugar Boiler 10/04/24 01/01/25 documented as of this encounter
--- OUTSIDE RECORDS SUMMARY | 2025-06-27 08:54 | XMS_ITS | Encounter Summary ---
Author Organization [employer] Address [address] [facility] 7t [place] [address] Care Team Providers Care Advertising Assistant Manager Name Role Phone Shauna Martínez MD Primary Care Provide r Jason Tai RN Unavailable [phone] Reason for Visit * Reason Onset Date Comments Med Refill 03/23/2024 Encounter Details Date Type Department Care Team (Late st Contact Info) Description 03/23/2024 Telephone [facility] MEDICINE [address] [place], [place] [phone] Shauna Martínez MD [address] [place], [place] [phone] Med Refill Social History Tobacco Use Types [...] 11:36 AM EDT Medication was sent to [facility] #[id number] today. * Telephone Encounter - Ekaterina Rivas - 03/23/2024 11:32 AM EDT TC from pt requesting medication refill. Medications needing refill : levothyroxine (Synthroid, Levoxyl) 88 MCG tablet To be sent to: [facility]/pharmacy #[id number] - [place], [place] - [address] [place] [address] documented in this encounter Plan of Treatment Not on file documented as of this encounter Visit Diagnoses Not on filedocumented in this encounter Additional Health Concerns Assessment Noted Time PHQ-9 Depression Total Score: 10 024 10:54 AM EST documented as of this encounter Care Teams Advertising Assistant Manager Relationship Specialty Start Date End Date Shauna Martínez MD [address] [place] [address] PCP - General Family Medicine 02/19/21 Jason Tai RN [address] [place] [id number] Policy DirectorHr Payroll Coordinator 10/04/24 01/01/25 documented as of this encounter
--- OUTSIDE RECORDS SUMMARY | 2025-06-27 08:54 | XMS_ITS | Encounter Summary ---
Author Organization [employer] Address [address] [facility] [address] 7t [place] [address] Care Team Providers Care Education Program Associate Name Role Phone Shauna Martínez MD Primary Care Provide r Encounter Details Date Type Department Care Team ([facility] Contact Info) Description 01/16/2025 Orders Only [facility] MEDICINE [address] [place], [place] [phone] Shauna Martínez MD [address] [place] [address] Social History Tobacco Use Types Packs/Day Years [...] documented as of this encounter Care Teams Education Program Associate Relationship Specialty Start Date End Date Shauna Martínez MD [address] [place] [phone] PCP - General Family Medicine 02/19/21 documented as of this encounter
--- OUTSIDE RECORDS SUMMARY | 2025-06-27 08:54 | XMS_ITS | Encounter Summary ---
Author Organization [employer] Address [address] [place] [address] 7t [place] [address] Care Team Providers Care Sales Professional Name Role Phone Shauna Martínez MD Primary Care Provide r Jason Tai RN Unavailable [phone] Encounter Details Date Type Department Care Team ([facility] st Contact Info) Description 05/12/2023 Orders Only [facility] MEDICINE [address] [place] [address] Provider, Historical, Social History Tobacco Use Types [...] documented as of this encounter Care Teams Sales Professional Relationship Specialty Start Date End Date Shauna Martínez MD [address] [place] [address] PCP - General Family Medicine 02/19/21 Jason Tai RN [address] [place] [phone] Coil Winder HandVending Machine Refiller 10/04/24 01/01/25 documented as of this encounter
--- OUTSIDE RECORDS SUMMARY | 2025-06-27 08:54 | XMS_ITS ---
us Generic External Data Provider LAB MICROBIOLOGY - GENERAL ORDERABLES Final Result [facility] [address] [place] [address] [phone] * BI Mammogram Screening Tomosynthesis Bilateral (11/23/2024 11:00 AM EDT) Anatomical Region Laterality Modality Breast Bilateral Mammography 11/23/2024 11:0 0 AM EDT Narrative 11/29/2024 5:11 PM EDT [facility] [address] [place] [address] Mammography Report Signed Patient: Shanna Clifford MR#: [id number] : 1975 Acct:[id number] Age/Sex: 49 / F ADM Date: 11/23/24 Loc: HO.MAMMO Attending Dr: Shauna Barroso MD Ordering Physician: Shauna Martínez MD Results: 2Benign Findings Date of Service: 11/23/24 Follow Up: 1 Year From [facility] Mammogram Procedure(s): MM tomosynthesis screening BI Accession Number(s): [id number] cc: Shauna Martínez MD EXAMINATION: MM SCREENING [...] 11/29/24 1708 DD/ 1100 TD/TT: 11/23/24 1125 Assisted Living Housekeeper: Procedure Note Donotuseinterpreter, Image - [facility]/29/[facility] [address] [place] [address] Mammography Report Signed Patient: Richard CliffordR#: [id number] : 1975Acct:[id number] Age/Sex: 49 / FADM Date: 11/23/24 Loc: HO.MAMMO Attending Dr: Shauna Barroso MD Ordering Physician: Shauna Martínez MDResults: 2Benign Findings Date of Service: 11/23/24Follow Up: 1 Year From Orig inal Mammogram Procedure(s): MM tomosynthesis screening BI Accession Number(s): [id number] cc: Shauna Martínez MD EXAMINATION: MM SCREENING [...] 11/29/24 1708 DD/ 1100 TD/TT: 11/23/24 1125 Assisted Living Housekeeper: Shauna Barroso MD IMG BI PROCEDURES Bharath beau Result - Final from Last 3 Months or Most Recently Relevant to Health Maintenance Insurance C[facility] MEDICAID STAND ADULT Care Teams Glass Forming Engineer Relationship Specialty Start Date End Date Shauna Martínez MD [address] [place] [phone] PCP - General Family Medicine 02/19/21
--- OUTSIDE RECORDS SUMMARY | 2025-06-27 08:54 | XMS_ITS | Encounter Summary ---
Author Organization [employer] Address [address] [facility] 7t [place] [address] Care Team Providers Care Tin Flopper Name Role Phone Shauna Martínez MD Primary Care Provide r Jason Tai RN Unavailable [phone] Reason for Visit * Reason Onset Date Comments Created In Error 06/30/2024 Encounter Details Date Type Department Care Team ([facility] st Contact Info) Description 06/30/2024 Telephone [facility] MEDICINE [address] [place], [place] [phone] Shauna Martínez MD [address] [place], [place] [phone] Created In Error Social History Tobacco Use [...] documented as of this encounter Care Teams Tin Flopper Relationship Specialty Start Date End Date Shauna Martínez MD [address] [place] [address] PCP - General Family Medicine 02/19/21 Jason Tai RN [address] [place] [phone] Structural Design EngineerWriter Technical Publications 10/04/24 01/01/25 documented as of this encounter
--- OUTSIDE RECORDS SUMMARY | 2025-06-27 08:54 | XMS_ITS | Encounter Summary ---
Author Organization [employer] Address [address] [facility] 7t [place] [address] Care Team Providers Care Geography Teacher Name Role Phone Shauna Martínez MD Primary Care Provide r Reason for Visit * Reason Onset Date Comments Med Refill 03/30/2025 Encounter Details Date Type Department Care Team (Late st Contact Info) Description 03/30/2025 Refill [facility] MEDICINE [address] [place], [place] [phone] Shauna Martínez MD [address] [place] [address] Class 1 obesity due to excess calories [...] MG/0.5ML solution auto-injector To be sent to: [facility] - [place], [place] - [address] [facility] [address] documented in this encounter Plan of [...] documented as of this encounter Care Teams Geography Teacher Relationship Specialty Start Date End Date Shauna Martínez MD [address] [place] [address] PCP - General Family Medicine 02/19/21 documented as of this encounter
--- OUTSIDE RECORDS SUMMARY | 2025-06-27 08:54 | XMS_ITS | Encounter Summary ---
Author Organization [employer] Address [address] [facility] [address] 7t [place] [address] Care Team Providers Care Lan Administrator Name Role Phone Shauna Martínez MD Primary Care Provide r Encounter Details Date Type Department Care Team ([facility] Contact Info) Description 06/23/2025 Telephone [facility] MEDICINE [address] [place], [place] [phone] Shauna Martínez MD 230 [place] [address] Social History Tobacco Use Types Packs/Day Years [...] encounter Miscellaneous Notes * Telephone Encounter - Yuli Palafox RN - 06/23/2025 3:55 PM EDT Patient sent a webme message requesting a referral to: [facility] [address] [place] [phone] Has a previous Chiropractor referral order to a different office effective 09/30/24- 09/30/25 for neck pain. Please advise. documented in this encounter Plan of Treatment Not on file documented as of this encounter Visit Diagnoses Not on filedocumented in this encounter Additional Health Concerns Assessment Noted Time PHQ-9 Depression Total Score: 17 024 10:28 AM EDT documented as of this encounter Care Teams Lan Administrator Relationship Specialty Start Date End Date Shauna Martínez MD [address] [place] [address] PCP - General Family Medicine 02/19/21 documented as of this encounter
== END 2025-06-27 10:51 | disposition home or self-care (01) ==
LOC: HO.HWS 08:36
PROVIDERS: PCP Internal Medicine; Visit Provider Advanced Practice Midwife
DX: Z32.02 Encounter for pregnancy test, result negative (principal); Z71.2 Person consulting for explanation of examination or test findings
CPT/HCPCS: 99213

== ENCOUNTER 2025-08-18 14:03 | Outpatient (REF) | payer MEDICAID, SELFPAY ==
--- OUTSIDE RECORDS SUMMARY | 2025-08-16 15:15 | XMS_ITS | Encounter Summary ---
Author Organization [employer] Address [address] [facility] 7t [place] [address] Care Team Providers Care Split Leather Department Supervisor Name Role Phone Shauna Martínez MD Primary Care Provide r Reason for Referral * Consultation (Urgent) - Authorized Specialty Diagnoses / Procedures Referred By Oksana salcedo Referred To Contact Vascular Surgery Diagnoses Chronic deep vein thrombosis (DVT) of distal vein of left lower extremity (HCC) Chronic venous hypertension (idiopathic) with inflammation of left lower extremity Shauna Martínez MD [address] [place] [address] Phone: tel: fax: Juno Ulrich MD [address] [place] [address] Phone: tel: fax: Referral ID Status Reason Start Date Expiration Date Visits Requested Visits Authorized [id number] Authorized Specialty Services Required 5 08/16/2026 6 6 Scheduling Instructions Please refer to [address] [place] [address] thank you * Imaging (STAT) - Authorized Specialty Diagnoses / Procedures Referred By Oksana salcedo Referred To Contact Cardiology Diagnoses Edema of left lower extremity Procedures Vascular US lower extremity venous duplex left Shauna Martínez MD [address] [place] [address] Phone: tel: fax: [facility] [address] [place] [phone] Phone: tel: fax: Referral ID Status Reason Start Date Expiration Date Visits Requested Visits Authorized [id number] Authorized Perform Procedure 5 08/16/2026 1 1 Encounter Details Date Type Department Care Team (Late st Contact Info) Description 08/16/2025 3:15 PM EST Office Visit [facility] MEDICINE [address] [place] [address] Shauna Martínez MD [address] [place], [place] [phone] Edema of left lower extremity; Chronic deep vein thrombosis (DVT) of distal vein of left lower extremity (HCC); Chronic venous hypertension (idiopathic) with inflammation of left lower extremity; Left leg pain Social History Tobacco Use Types Packs/Day Years [...] Sign Reading Time Taken Comments Blood Pressure 110/72 08/16/2025 3:25 PM EST Pulse 67 08/16/2025 3:25 PM EST Temperature 34.4 C (94 F) 08/16/2025 3:25 PM EST Respiratory Rate 15 08/16/2025 3:25 PM EST Oxygen Saturation 99% 08/16/2025 3:25 PM EST Inhaled Oxygen Concentration - - Weight 72.8 kg (160 lb 9.6 oz) 08/16/2025 3:25 P M EST Height 165.1 cm (5' 5 ) 08/16/2025 3:25 PM EST Body Mass Index 26.73 08/16/2025 3:25 PM EST documented in this encounter Progress Notes * Shauna Barroso MD - 08/16/2025 3:15 PM EST SUBJECTIVE: Shanna Clifford is a 49 y.o. year old female who presents for acute visit . Shanna Clifford, 49 years Leg Pain and Vascular Issues - Chronic leg problems, ongoing for an extended period - Worsening leg pain for the past 3 weeks - Previous specialist visits for vascular and cardiology issues, last cardiology visit in 2022 - Reports using food and prescribed medications to manage symptoms - Received injections from tank farm operator for leg pain - Reports taking Levonox with no relief - Previously used tramadol for pain, completed course - Reports difficulty with foot - MRI of foot and back scheduled for August 22, 2025 - Emergency ultrasound ordered for leg by stator plate washer, scheduled for August 30, 2025 Colonoscopy and Endoscopy - Previous order for colonoscopy and endoscopy - Cleared by stator plate washer for procedures - Visited specialist once regarding procedures, awaiting scheduling - No contact received for procedure appointment despite clearance Social History Social History Narrative Not on file Problem List[1] Abnormal gait Hypothyroidism Migraine without aura, not refractory Mixed anxiety and depressive disorder Orthostatic hypotension Chronic pain Syncope Metrorrhagia Factor V deficiency (HCC) Chronic ulcer of lower extremity (HCC) Epigastric pain Chronic fatigue Chronic left hip pain Chronic midline low back pain without sciatica Fibromyalgia Burn Chronic anticoagulation Chronic deep vein thrombosis (DVT) of distal vein of left lower extremity (HCC) Chronic GERD Gastroesophageal reflux disease without esophagitis Conversion disorder Functional neurological symptom disorder with mixed symptoms DUB (dysfunctional uterine bleeding) 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 HENT: Negative. Respiratory: Negative. Cardiovascular: Positive for leg swelling. Negative for chest pain and palpitations. Musculoskeletal: Positive for myalgias. OBJECTIVE: Vitals: 08/16/25 1525 BP: 110/72 BP Location: Left arm Patient Position: Sitting BP Cuff Size: Adult Pulse: 67 Resp: 15 Temp: 94 ??F (34.4 ??C) TempSrc: Temporal SpO2: 99% Weight: 160 lb 9.6 oz (72.8 kg) Height: 5' 5 (1.651 m) Physical Exam Cardiovascular: Rate and Rhythm: Normal rate and regular rhythm. Pulmonary: Effort: Pulmonary effort is normal. Breath sounds: Normal breath sounds. Abdominal: General: Abdomen is flat. Palpations: Abdomen is soft. Musculoskeletal: Right lower leg: Normal. Left lower leg: Swelling and tenderness present. 3+ Pitting Edema present. Comments: Positive morgan on left leg Neurological: Mental Status: She is alert. Follow Up: No follow-ups on file. Medications Ordered Prior to Encounter[3] Problem List Items Addressed This Visit Edema of left lower extremity Relevant Orders Vascular US lower extremity venous duplex left Chronic deep vein thrombosis (DVT) of distal vein of left lower extremity (HCC) (Chronic) Relevant Orders Referral to Vascular Surgery Chronic venous hypertension (idiopathic) with inflammation of left lower extremity Relevant Orders Referral to Vascular Surgery Left leg pain Relevant Medications traMADol (Ultram) 50 MG tablet Edema of left lower extremity: - Ordered stat venous ultrasound of the left lower extremity; will contact multiple imaging centersto obtain the earliest appointment; instructed to go to the emergency department if unable to secure urgent imaging or if concern for clot arises. - Risks and side effects: Discussed risk that a clot could embolize to the lungs. Chronic deep vein thrombosis (DVT) of distal vein of left lower extremity (HCC): - Ordered stat venous ultrasound to evaluate for acute thrombosis; referred to vascular specialist;advised emergency department evaluation if urgent imaging cannot be arranged promptly. - Risks and side effects: Discussed risk of pulmonary embolism. Chronic venous hypertension (idiopathic) with inflammation of left lower extremity: - Referred to vascular specialist for ongoing management. Left leg pain: - Prescribed tramadol for analgesia as interim pain control while awaiting imaging and specialist evaluation. Colonoscopy/endoscopy coordination: - Will contact gastroenterology to confirm cardiology clearance and expedite scheduling; provided contact numbers; advised to have daughter call as discussed. This note was drafted using [employer] (AI) technology. The patient/patient's guardian has been informed and has consented to the use of this technology: Yes [1] Patient Active Problem List Diagnosis Abnormal gait Hypothyroidism Migraine without aura, not refractory Mixed anxiety and depressive disorder Orthostatic hypotension Chronic pain Syncope Metrorrhagia Factor V deficiency (HCC) Chronic ulcer of lower extremity (HCC) Epigastric pain Chronic fatigue Chronic left hip pain Chronic midline low back pain without sciatica Fibromyalgia Burn Chronic anticoagulation Chronic deep vein thrombosis (DVT) of distal vein of left lower extremity (HCC) Chronic GERD Gastroesophageal reflux disease without esophagitis Conversion disorder Functional neurological symptom disorder with mixed symptoms DUB (dysfunctional uterine bleeding) Factor V Leiden (CMS/HCC) Heterozygous for prothrombin [id number] mutation B (CMS/HCC) Insomnia due to anxiety and fear Iron deficiency anemia Lymphedema Plantar fasciitis of right foot Left leg pain Pain Severe obesity (CMS/HCC) (HCC) 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 [3] Current Outpatient Medications on File Prior to Visit Medication Sig Dispense Refill acetaminophen (Tylenol 8 Hour) 650 MG ER tablet Take 1 tablet (650 mg) by mouth every 8 (eight) hours if needed for mild pain. Do not crush, chew, or split. 30 tablet 0 acetaminophen (Tylenol 8 Hour) 650 MG ER tablet Take 1 tablet (650 mg) by mouth every 8 (eight) hours if needed for mild pain. Do not crush, chew, or split. 30 tablet 0 albuterol 108 (90 Base) MCG/ACT inhaler Inhale 2 puffs every 4 (four) hours if needed for wheezing or shortness of breath. 18 g 1 amitriptyline (Elavil) 10 MG tablet TAKE 1 TABLET BY MOUTH EVERYDAY AT BEDTIME 30 tablet 1 buPROPion XL (Wellbutrin XL) 300 MG 24 hr tablet Take 300 mg by mouth in the morning. busPIRone (Buspar) 15 MG tablet Take 15 mg by mouth 2 times daily. capsaicin (Capzasin-HP) 0.1 % cream Apply thin layer by topical route up to 4 times daily for pain.45 g 3 cholecalciferol VITAMIN D (Vitamin D-3) 50 MCG (2000 UT) capsule TAKE 1 CAPSULE (50 MCG) BY MOUTH IN THE MORNING 90 capsule 0 clopidogrel (Plavix) 75 MG tablet Take 75 mg by mouth Once per day. dicyclomine (Bentyl) 10 MG capsule Take 1 capsule by mouth Once per day. DULoxetine (Cymbalta) [address] capsule Take 1 capsule by mouth at bed time. Enoxaparin Sodium 120 MG/0.8ML solution prefilled syringe INJECT 0.8 ML SUBCUTANEOUSLY DAILY famotidine (Pepcid) 40 MG tablet TAKE 1 TABLET BY MOUTH EVERY DAY FOR GERD. gabapentin (Neurontin) 400 MG capsule 400 mg. levothyroxine (Synthroid, Levoxyl) 88 MCG tablet TAKE 1 TABLET BY MOUTH EVERY DAY BEFORE BREAKFAST 90 tablet 3 lidocaine (Lidoderm) 5 % patch Apply 1 patch topically Once per day. Remove & discard patch within 12 hours or as directed by MD. 30 patch 2 Lidocaine 5 % cream Apply a thin measure to the affected area as needed 30 g 0 loratadine (Claritin) 10 MG tablet TAKE 1 TABLET BY MOUTH EVERY DAY IN THE MORNING 90 tablet 3 minoxidil (Rogaine) 2 % external solution APPLY TOPICALLY TWICE A DAY 60 mL 1 pantoprazole (ProtoNix) 20 MG EC tablet TAKE 1 TABLET BY MOUTH TWICE A DAY 180 tablet 3 QUEtiapine (SEROquel) 200 MG tablet Take 200 mg by mouth at bedtime. sertraline (Zoloft) 100 MG tablet Take 200 mg by mouth at bedtime. Spacer/Aero-Holding Chambers (OptiChamber Jaylin) misc 1 each every 4 (four) hours if needed (asthma). 1 each 0 SUMAtriptan (Imitrex) 100 MG tablet 9 each, 0 Refill(s), TAKE 1/2 TABLET BY MOUTH EVERY DAY NEEDED, 0 Refills, 06/28/24 1:13:00 PM EDT, Partial fill upon patient request if the prescription is fora schedule II opioid drug. topiramate (Topamax) 200 MG tablet Take 200 mg by mouth at bedtime. Zepbound 5 MG/0.5ML solution auto-injector INJECT ONE PEN (=5MG) SUBCUTANEOUSLY ONCE A WEEK DIRECTED 2 mL 0 No current facility-administered medications on file prior to visit. documented in this encounter Plan of Treatment Scheduled Referrals Name Type Priority Associated Diagnoses Orde r Schedule Referral to Vascular Surgery Outpatient Referral Urgent Chronic deep vein thrombosis (DVT) of distal vein of left lower extremity (HCC) Chronic venous hypertension (idiopathic) with inflammation of left lower extremity Expected: 08/16/2025 (Approximate), Expires: 08/16/2026 documented as of this encounter Visit Diagnoses Diagnosis Edema of left lower extremity Chronic deep vein thrombosis (DVT) of distal vein of left lower extremity (HCC) Chronic venous hypertension (idiopathic) with inflammation of left lower extremity Left leg pain Pain in soft tissues of limb documented in this encounter Additional Health Concerns Assessment Noted Time PHQ-9 Depression Total Score: 17 024 10:28 AM EDT documented as of this encounter Care Teams Split Leather Department Supervisor Relationship Specialty Start Date End Date Shauna Martínez MD [address] [place] [address] PCP - General Family Medicine 02/19/21 documented as of this encounter
--- NOTE | ~2025-08-18 | US_ITS ---
EXAMINATION: US TRIPLEX LOWER EXTREMITY, LEFT CLINICAL INFORMATION: Left lower extremity edema. COMPARISON: None available. TECHNIQUE: Color-flow triplex imaging with spectral analysis and compression Doppler were performed on the left lower extremity. FINDINGS: Respiratory variation, normal compression and augmented flow are noted throughout the left lower extremity. The visualized common femoral vein, superficial femoral vein, profunda femoral vein, popliteal vein and midcalf posterior tibial venous segments show no evidence of deep venous thrombosis. The peroneal vein could not be well-visualized. There is no Wise's cyst. There is subcutaneous calf edema. US/US venous duplex LE IMPRESSION: No evidence of deep venous thrombosis involving the left lower extremity. Electronically signed by: Emerson Blevins MD 08/18/2025 03:06 PM [facility]
--- OUTSIDE RECORDS SUMMARY | 2025-08-18 19:27 | XMS_ITS | Encounter Summary ---
Author Organization [employer] Address [address] [facility] [address] 7t [place] [address] Care Team Providers Care Corrections Counselor Name Role Phone Shauna Martínez MD Primary Care Provide r Encounter Details Date Type Department Care Team (Latest Contact Info) Description 08/16/2025 Travel Social History Tobacco Use Types Packs/Day [...] is your housing situation today? I have ajchliango persaud 07/03/[address] you [...] documented as of this encounter Care Teams Corrections Counselor Relationship Specialty Start Date End Date Shauna Martínez MD [address] [place] [address] PCP - General Family Medicine 02/19/21 documented as of this encounter
--- OUTSIDE RECORDS SUMMARY | 2025-08-18 19:27 | XMS_ITS | Encounter Summary ---
Author Organization [employer] Address [address] [facility] 7t [place] [address] Care Team Providers Care Supervisor Quilting Name Role Phone Shauna Martínez MD Primary Care Provide r Jason Tai RN Unavailable [phone] Encounter Details Date Type Department Care Team ([facility] st Contact Info) Description 06/01/2023 Orders Only [facility] MEDICINE [address] [place] [address] Provider, Historical, Social History Tobacco Use Types [...] documented as of this encounter Care Teams Supervisor Quilting Relationship Specialty Start Date End Date Shauna Martínez MD [address] [place] [address] PCP - General Family Medicine 02/19/21 Jason Tai RN [address] [place] [address] Systems Test AnalystProperty Insurance Inspector 10/04/24 01/01/25 documented as of this encounter
--- OUTSIDE RECORDS SUMMARY | 2025-08-18 19:27 | XMS_ITS | Encounter Summary ---
Author Organization [employer] Address [address] [facility] [address] 7[address] [place] [address] Care Team Providers Care [employer] Name Role Phone Shauna Martínez MD Primary Care Provide r Encounter Details Date Type Department Care Team ([facility] Contact Info) Description 01/16/2025 Orders Only [facility] MEDICINE [address] [place], [place] [phone] Shauna Martínez MD [address] [place] [address] Social History Tobacco Use Types Packs/Day Years [...] documented as of this encounter Care Teams [employer] Relationship Specialty Start Date End Date Shauna Martínez MD [address] [place] [phone] PCP - General Family Medicine 02/19/21 documented as of this encounter
--- OUTSIDE RECORDS SUMMARY | 2025-08-18 19:27 | XMS_ITS | Encounter Summary ---
Author Organization [employer] Address [address] [place] [address] [address] [place] [address] Care Team Providers Care Industrial Green Systems Designer Name Role Phone Shauna Martínez MD Primary Care Provide r Jason Tai RN Unavailable [phone] Encounter Details Date Type Department Care Team ([facility] st Contact Info) Description 05/12/2023 Orders Only [facility] MEDICINE [address] [place] [address] Provider, Historical, Social History Tobacco Use Types [...] documented as of this encounter Care Teams Industrial Green Systems Designer Relationship Specialty Start Date End Date Shauna Martínez MD [address] [place] [address] PCP - General Family Medicine 02/19/21 Jason Tai RN [address] [place] [id number] Operator LightsVulnerability Assessment Analyst 10/04/24 01/01/25 documented as of this encounter
--- OUTSIDE RECORDS SUMMARY | 2025-08-18 19:27 | XMS_ITS | Encounter Summary ---
Author Organization [employer] Address [address] [facility] 7 [place] [address] Care Team Providers Care Automatic Punch Press Operator Name Role Phone Shauna Martínez MD Primary Care Provide r Reason for Visit * Reason Onset Date Comments Prior Auth Prescription 01/10/2025 Encounter Details Date Type Department Care Team ([facility] st Contact Info) Description 01/10/2025 Telephone [facility] MEDICINE [address] [place], [place] [phone] Shauna Martínez MD [address] [place] [address] Prior Auth Prescription Social History Tobacco Use [...] documented as of this encounter Care Teams Automatic Punch Press Operator Relationship Specialty Start Date End Date Shauna Martínez MD [address] [place] [address] PCP - General Family Medicine 02/19/21 documented as of this encounter
--- OUTSIDE RECORDS SUMMARY | 2025-08-18 19:27 | XMS_ITS | Encounter Summary ---
Author Organization [employer] Address [address] [facility] [address] [place] [address] Care Team Providers Care Technical Sales Specialist Name Role Phone Shauna Martínez MD Primary Care Provide r Reason for Visit * Reason Comments Med Refill Encounter Details Date Type Department Care Team ([facility] st Contact Info) Description 08/16/2025 Refill [facility] MEDICINE [address] [place], [place] [phone] Shauna Martínez MD [address] [place] [address] Class 1 obesity due to excess calories [...] documented as of this encounter Care Teams Technical Sales Specialist Relationship Specialty Start Date End Date Shauna Martínez MD [address] [place] [address] PCP - General Family Medicine 02/19/21 documented as of this encounter
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
--- OUTSIDE RECORDS SUMMARY | 2025-08-18 19:28 | XMS_ITS | Encounter Summary ---
Author Organization [employer] Address 75 [facility] 7t [place] [address] Care Team Providers Care Security Technician Name Role Phone Shauna Martínez MD Primary Care Provide r Reason for Visit * Reason Onset Date Comments Med Refill 03/30/2025 Encounter Details Date Type Department Care Team (Late st Contact Info) Description 03/30/2025 Refill [facility] [address] [place], [place] [phone] Shauna Martínez MD [address] [place] [address] Class 1 obesity due to excess calories [...] MG/0.5ML solution auto-injector To be sent to: [facility] [place] [place] [facility] [address] [facility] documented in this encounter Plan of Treatment [...] documented as of this encounter Care Teams Security Technician Relationship Specialty Start Date End Date Shauna Martínez MD [address] [place] [address] PCP - General Family Medicine 02/19/21 documented as of this encounter
--- OUTSIDE RECORDS SUMMARY | 2025-08-18 19:28 | XMS_ITS | Encounter Summary ---
Author Organization [employer] Address [address] [facility] [address] 7t [place] [address] Care Team Providers Care Medical Receptionist Biller Name Role Phone Shauna Martínez MD Primary Care Provide r Encounter Details Date Type Department Care Team ([facility] Contact Info) Description 08/18/2025 Orders Only [facility] [address] [place], [place] [phone] Shauna Martínez MD [address] [place] [address] Social History Tobacco Use Types Packs/Day Years [...] DUPLEX LEFT Routine 08/18/2025 2:40 PM EST documented in this encounter Results * Lower Extremity Venous Duplex (08/18/2025 2:40 PM EST) 08/18/2025 2:40 PM EST Narrative [facility] - 08/18/2025 3:09 PM EST [address] [address] Ultrasound Report Signed Patient: Shanna Clifford MR#: [id number] : 1975 Acct:[id number] Age/Sex: 49 / F ADM Date: 08/18/25 Loc: HO.US Attending Dr: Shauna Barroso MD Ordering Physician: Shauna Martínez MD Date of Service: 08/18/25 Procedure(s): US venous duplex LE Accession Number(s): [id number] cc: Shauna Martínez MD Reason for Exam: [...] by: Emerson Blevins MD 08/18/2025 03:06 PM [facility] Dictated By: Emerson Blevins MD Signed By: <Electronically signed by Emerson Blevins MD in OV> 08/18/25 1506 DD/ 1440 TD/TT: 08/18/25 1459 Teacher Adult Education: Procedure Note Donotuseinterpreter, Image - 08/18/2025 [place] [address] Ultrasound Report Signed Patient: Tiki Clifford#: [id number] : 1975Acct:[id number] Age/Sex: 49 / FADM Date: 08/18/25 Loc: HO.US Attending Dr: Shauna Barroso MD Ordering Physician: Shauna Martínez MD Date of Service: 08/18/25 Procedure(s): US venous duplex LE LT Accession Number(s): [id number] cc: Shauna Mratínez MD Reason for Exam: EDEMA OF LEFT [...] by: Emerson Blevins MD 08/18/2025 03:06 PM [facility] Dictated By: Emerson Blevins MD Signed By: <Electronically signed by Emerson Blevins MD in OV> 08/18/25 1506 DD/ 1440 TD/TT: 08/18/25 1459 Teacher Adult Education: us Shauna Barroso MD CV VASCULAR PROCEDURE S Final Result [facility] [address] [phone] documented in this encounter Visit Diagnoses Not on filedocumented in this encounter Additional Health Concerns Assessment Noted Time PHQ-9 Depression Total Score: 17 07/2 024 10:28 AM EDT documented as of this encounter Care Teams Medical Receptionist Biller Relationship Specialty Start Date End Date Shauna Martínez MD [address] [place] [address] PCP - General Family Medicine 02/19/21 documented as of this encounter
--- OUTSIDE RECORDS SUMMARY | 2025-08-18 19:28 | XMS_ITS | Clinical Summary ---
Author Organization [address] [facility] Address [address] [place] [address] Phone Care Team Providers Care Automotive Heavy Mechanic Name Role Phone Shauna Martínez MD Primary Care Provide r Allergies No known active allergies Medications No known medications Encounters Date Type Department Care Team Description 06/28/2025 10:45 AM EDT Office Visit Orthopedic Surgery [facility] [address] [facility] [address] [place] [address] Juwan Key DPM Pain in both [...] 03/06/2025 11:12 AM EDT Plan of Treatment Upcoming Encounters Date Type Department Care Team ([facility] st Contact Info) Description 08/22/2025 6:15 PM EST Appointment [facility] MRI [address] [place] [address] Health Maintenance Due Date Last Done Comments [...] RESULTING AGENCY - 01/19/2018 12:14 PM EDT [id number] THINPREP PAP, IMAGED: NEGATIVE FOR SQUAMOUS INTRAEPITHELIAL [...] Maintenance Insurance MEDICAID - [place] Care Teams Automotive Heavy Mechanic Relationship Specialty Start Date End Date Shauna Martínez MD [address] [place] [phone] PCP - General Internal Medicine 01/26/25
--- OUTSIDE RECORDS SUMMARY | 2025-08-18 19:28 | XMS_ITS | Encounter Summary ---
Author Organization [employer] Address 75 [facility] 7t [place] [address] Care Team Providers Care Release Of Information Clerk Name Role Phone Shauna Martínez MD Primary Care Provide r Jason Tai RN Unavailable [phone] Reason for Visit * Reason Onset Date Comments Created In Error 06/30/2024 Encounter Details Date Type Department Care Team ([facility] st Contact Info) Description 06/30/2024 Telephone [facility] [address] [place], [place] [phone] Shauna Martínez MD [address] [place], [place] [phone] Created In Error Social History Tobacco Use [...] documented as of this encounter Care Teams Release Of Information Clerk Relationship Specialty Start Date End Date Shauna Martínez MD [address] [place] [address] PCP - General Family Medicine 02/19/21 Jason Tai RN [address] [place] [address] Range ExaminerTelephone Service Adviser 10/04/24 01/01/25 documented as of this encounter
--- OUTSIDE RECORDS SUMMARY | 2025-08-18 19:28 | XMS_ITS | Encounter Summary ---
Author Organization [employer] Address [address] [facility] 7t [place] [address] Care Team Providers Care Sound Effects Supervisor Name Role Phone Shauna Martínez MD Primary Care Provide r Jason Tai RN Unavailable [phone] Reason for Visit * Reason Onset Date Comments Med Refill 03/23/2024 Encounter Details Date Type Department Care Team (Late st Contact Info) Description 03/23/2024 Telephone [facility] [address] [place], [place] [phone] Shauna Martínez MD [address] [place], [place] [phone] Med Refill Social History Tobacco Use Types [...] 11:36 AM EDT Medication was sent to [id number] today. * Telephone Encounter - Ekaterina Rivas - 03/23/2024 11:32 AM EDT TC from pt requesting medication refill. Medications needing refill : levothyroxine (Synthroid, Levoxyl) 88 MCG tablet To be sent to: [facility]/pharmacy #[id number] - [place], [place] - [address] [place] [address] documented in this encounter Plan of Treatment Not on file documented as of this encounter Visit Diagnoses Not on filedocumented in this encounter Additional Health Concerns Assessment Noted Time PHQ-9 Depression Total Score: 10 024 10:54 AM EST documented as of this encounter Care Teams Sound Effects Supervisor Relationship Specialty Start Date End Date Shauna Martínez MD [address] [place] [address] PCP - General Family Medicine 02/19/21 Jason Tai RN [address] [place] [phone] Assistant Guest Services ManagerModel Builder Display 10/04/24 01/01/25 documented as of this encounter
== END 2025-08-18 14:04 | disposition home or self-care (01) ==
LOC: HO.US 14:03
PROVIDERS: PCP Internal Medicine; Visit Provider Internal Medicine
DX: R60.0 Localized edema (principal)
CPT/HCPCS: 93971

== ENCOUNTER → 2025-08-18 14:06 | Outpatient (BNV) | payer MEDICAID, SELFPAY | PROVIDERS: PCP Internal Medicine; Visit Provider Radiology Diagnostic Radiology | DX: R60.0 Localized edema (principal) | CPT/HCPCS: 93971 ==